=== PATIENT | male | born 1930 | race African-American/Black ===

== ENCOUNTER 2016-04-27 13:30 | Outpatient (RCR) | payer OTHER ==
[~2016-04-27 13:30] MED LIST: CRESTOR10 M1 ORAL; DIABETA5 MG ORAL; FUROSEMIDE40 MG ORAL; LISINOPRIL10 MG ORAL; SLOW-MAG64 MG PO; VITAMIN B12-FO1 EAC1 PO; VITAMIN D400 INTLU ORAL
== END 2016-05-24 | disposition home or self-care (01) ==
LOC: PTY 13:30
DX: M48.06 Spinal stenosis, lumbar region (principal); M79.606 Pain in leg, unspecified
CPT/HCPCS: 97110; G0283

== ENCOUNTER 2016-06-01 15:00 | Outpatient (RCR) | payer OTHER | END 2016-06-21 | disposition home or self-care (01) | LOC: PTY 15:00 | DX: M48.06 Spinal stenosis, lumbar region (principal); M79.606 Pain in leg, unspecified | CPT/HCPCS: 97110; G0283 ==

== ENCOUNTER 2016-11-18 13:50 | Outpatient (RCR) | payer OTHER | END 2016-11-21 | disposition home or self-care (01) | LOC: PTY 13:50 | DX: M48.06 Spinal stenosis, lumbar region (principal); M79.606 Pain in leg, unspecified | CPT/HCPCS: 97110; 97161; G0283 ==

== ENCOUNTER 2016-12-08 15:00 | Outpatient (RCR) | payer OTHER | END 2016-12-22 | disposition home or self-care (01) | LOC: PTY 15:00 | DX: M48.06 Spinal stenosis, lumbar region (principal); M79.606 Pain in leg, unspecified; M54.5 Low back pain; G89.29 Other chronic pain | CPT/HCPCS: 97110; G0283 ==

== ENCOUNTER 2017-01-11 14:30 | Outpatient (RCR) | payer OTHER | END 2017-01-21 | disposition home or self-care (01) | LOC: PTY 14:30 | DX: M60.9 Myositis, unspecified (principal) | CPT/HCPCS: 97110; G0283 ==

== ENCOUNTER 2017-02-15 14:12 | Outpatient (RCR) | payer OTHER | END 2017-02-21 | disposition home or self-care (01) | LOC: PTY 14:12 | DX: M60.9 Myositis, unspecified (principal) | CPT/HCPCS: 97110; G0283 ==

== ENCOUNTER 2017-02-27 15:15 | Outpatient (RCR) | payer OTHER | END 2017-03-23 | disposition home or self-care (01) | LOC: PTY 15:15 | DX: M60.9 Myositis, unspecified (principal) | CPT/HCPCS: 97110; G0283 ==

== ENCOUNTER 2017-06-01 15:15 | Outpatient (RCR) | payer OTHER | END 2017-06-21 | disposition home or self-care (01) | LOC: PTY 15:15 | DX: R26.9 Unspecified abnormalities of gait and mobility (principal) | CPT/HCPCS: 97110; 97161; G0283 ==

== ENCOUNTER 2017-06-28 10:50 | Outpatient (RCR) | payer OTHER | END 2017-07-22 | disposition home or self-care (01) | LOC: PTY 10:50 | DX: R26.9 Unspecified abnormalities of gait and mobility (principal) | CPT/HCPCS: 97110; G0283 ==

== ENCOUNTER 2017-07-26 15:00 | Outpatient (RCR) | payer OTHER | END 2017-08-21 | disposition home or self-care (01) | LOC: PTY 15:00 | DX: R26.9 Unspecified abnormalities of gait and mobility (principal) | CPT/HCPCS: 97032; 97110; G0283 ==

== ENCOUNTER 2017-08-22 15:00 | Outpatient (RCR) | payer OTHER | END 2017-09-21 | disposition home or self-care (01) | LOC: PTY 15:00 | DX: R26.9 Unspecified abnormalities of gait and mobility (principal) | CPT/HCPCS: 97032; 97110; G0283 ==

== ENCOUNTER 2017-09-25 13:45 | Outpatient (RCR) | payer OTHER | END 2017-10-21 | disposition home or self-care (01) | LOC: PTY 13:45 | DX: R26.9 Unspecified abnormalities of gait and mobility (principal) ==

== ENCOUNTER 2018-05-17 17:11 | Inpatient (IN) | payer OTHER ==
[~2018-05-17] VITALS: Ht 177.8 cm; Wt 107.5 kg
[2018-05-17 18:22] VITALS: BP 138/66
[2018-05-17 18:28] LABS: BASOPHILS % (AUTO) 1.4 % (0.0-2.0); EOSINOPHILS % (AUTO) 1.2 % (0.0-3.0); HEMATOCRIT 38.2 % (42.0-52.0); HEMOGLOBIN 12.7 G/DL (14.2-18.0); LYMPHOCYTES % (AUTO) 12.8 % (20.0-45.0); MEAN CORPUSCULAR VOLUME 95 FL (80-99); MONOCYTES % (AUTO) 5.2 % (1.0-10.0); NEUTROPHILS % (AUTO) 79.5 % (45.0-75.0); PLATELET COUNT 148 K/UL (150-450); RED BLOOD COUNT 4.03 M/UL (4.70-6.10); RED CELL DISTRIBUTION WIDTH 14.7 % (11.6-14.8); WHITE BLOOD COUNT 6.8 K/UL (4.8-10.8)
[2018-05-17 18:48] LABS: ANION GAP 7 mmol/L (5-15); BLOOD UREA NITROGEN 23 mg/dL (7-18); CALCIUM 8.7 MG/DL (8.5-10.1); CARBON DIOXIDE 28 MMOL/L (21-32); CHLORIDE 103 MMOL/L (98-107); CREATININE 0.8 MG/DL (0.55-1.30); POTASSIUM 4.2 MMOL/L (3.5-5.1); SODIUM 138 MMOL/L (136-145)
[2018-05-17 19:01] LABS: ALANINE AMINOTRANSFERASE 109 U/L (12-78); ALBUMIN 2.6 G/DL (3.4-5.0); ALBUMIN/GLOBULIN RATIO 0.7 (1.0-2.7); ALKALINE PHOSPHATASE 55 U/L (46-116); ASPARTATE AMINO TRANSFERASE 79 U/L (15-37); BILIRUBIN,TOTAL 0.7 MG/DL (0.2-1.0)
[2018-05-17 19:29] LABS: APPEARANCE,URINE CLOUDY; BILIRUBIN, URINE NEGATIVE (NEGATIVE); GLUCOSE, URINE (UA) NEGATIVE (NEGATIVE); KETONES,URINE 1+ (NEGATIVE); LEUKOCYTE ESTERASE ,URINE 3+ (NEGATIVE); NITRITE,URINE NEGATIVE (NEGATIVE); PH,URINE 5 (4.5-8.0); PROTEIN,URINE 2+ (NEGATIVE); UROBILINOGEN,URINE 4 MG/DL (0.0-1.0)
[2018-05-17 19:30] LABS: COLOR,URINE YELLOW
[2018-05-17 19:45] VITALS: BP 140/68
[2018-05-17] MEDS ORDERED: cefTRIAXone 1 GM in NS 55 ML IVPB ONE (19:45)
--- NOTE | 2018-05-17 20:01 | Emergency Room Report ---
History of Present Illness General Chief Complaint: Edema Source: Patient, EMS Present Illness HPI Patient is an 88-year-old male presented after increased difficulty with leg swelling and ambulate difficulty ambulating. Patient reportedly had a recent fall. He had been noted to have increased swelling to both legs. Patient had been lying in bed for several days and then been unable to care for himself. Patient had prior history of hypertension as well as type 2 diabetes. Patient denies having any prior cardiac history. He states that he had been having increased swelling and has chronic pain to his low back. Patient reports being normally ambulatory prior to the fall. Allergies: Coded Allergies: HYDRALAZINE (Unverified Allergy, Unknown, Rash, 05/14/15) METFORMIN (Unverified Allergy, Unknown, NAUSEA ONLY, 05/14/15) Patient History Past Medical History: see triage record Reviewed Nursing Documentation: PMH: Agreed; PSxH: Agreed Nursing Documentation-PMH Hx Cardiac Problems: Yes Hx Hypertension: Yes Hx Diabetes: Yes Hx Cancer: No Hx Gastrointestinal Problems: No Hx Neurological Problems: No Review of Systems All Other Systems: negative except mentioned in HPI Physical Exam Vital Signs Date Time Temp Pulse Resp B/P (MAP) Pulse Ox O2 Delivery O2 Flow Rate FiO2 05/17/18 17:07 100.9 103 20 129/73 97 Room Air Sp02 EP Interpretation: reviewed, normal General Appearance: normal inspection, well appearing, no apparent distress, alert, GCS 15 Head: atraumatic Eyes: bilateral eye other - bilateral eyelid discharge ENT: normal ENT inspection, normal voice Neck: normal inspection, supple, no bony tend, limited range of motion Respiratory: normal inspection, lungs clear, no respiratory distress, no retraction, rales Cardiovascular #1: regular rate, rhythm, edema Gastrointestinal: normal inspection, normal bowel sounds, non tender, soft, no guarding, no hernia Genitourinary: no CVA tenderness Musculoskeletal: normal range of motion, decreased range of motion Neurologic: normal inspection, alert, oriented x3, responsive, diversity specialist III-XII nml as tested, speech normal, motor weakness - bilateral lower extremities, left greater than right Psychiatric: normal inspection, judgement/insight normal, mood/affect normal Skin: normal color, other - Blistering to left leg. Medical Decision Making Diagnostic Impression: Primary Impression: CHF (congestive heart failure) Additional Impressions: Urinary tract infection Bilateral leg edema ER Course Patient presented for difficulty ambulating and bilateral leg swelling. Differential diagnosis include was not limited to renal failure, congestive heart failure, medication reaction, dependent edema among others. Because of complexity of patient's case laboratory testing and imaging studies were ordered. Patient was noted to have market edema to both lower extremities. There is some lower extremity blistering. Patient had no prior cardiac history. EKG interpreted by me showed normal sinus rhythm with a rate of [address] or T wave changes.Patient presented for bilateral leg swelling. patient reports having a fall and having been able to ambulate since. CT of the abdomen pelvis was ordered which showed some bibasilar infiltrates. Patient's exam is consistent with congestive heart failure. Patient was noted to have too numerous to count white cells in his urine. He was started on antibiotics for presumed urinary infection. Patient was given IV Lasix. Dr. Kaleb Carrillo was contacted for Dr. Roberto for inpatient management due to Capitated physician. Laboratory Tests Test 05/17/18 18:05 05/17/18 18:20 05/17/18 19:05 05/17/18 23:00 White Blood Count 6.8 K/UL (4.8-10.8) Red Blood Count 4.03 M/UL (4.70-6.10) L Hemoglobin 12.7 G/DL (14.2-18.0) L Hematocrit 38.2 % (42.0-52.0) L Mean Corpuscular Volume 95 FL (80-99) Mean Corpuscular Hemoglobin 31.6 PG (27.0-31.0) H Mean Corpuscular Hemoglobin Concent 33.3 G/DL (32.0-36.0) Red Cell Distribution Width 14.7 % (11.6-14.8) Platelet Count 148 K/UL (150-450) L Mean Platelet Volume 6.0 FL (6.5-10.1) L Neutrophils (%) (Auto) 79.5 % (45.0-75.0) H Lymphocytes (%) (Auto) 12.8 % (20.0-45.0) L Monocytes (%) (Auto) 5.2 % (1.0-10.0) Eosinophils (%) (Auto) 1.2 % (0.0-3.0) Basophils (%) (Auto) 1.4 % (0.0-2.0) Prothrombin Time 10.4 SEC (9.30-11.50) Prothrombin Time INR 1.0 (0.9-1.1) PTT 22 SEC (23-33) L Sodium Level 138 MMOL/L (136-145) Potassium Level 4.2 MMOL/L (3.5-5.1) Chloride Level 103 MMOL/L (98-107) Carbon Dioxide Level 28 MMOL/L (21-32) Anion Gap 7 mmol/L (5-15) Blood Urea Nitrogen 23 mg/dL (7-18) H Creatinine 0.8 MG/DL (0.55-1.30) Estimate Glomerular Filtration Rate mL/min (>60) Glucose Level 159 MG/DL (74-106) H Calcium Level 8.7 MG/DL (8.5-10.1) Total Bilirubin 0.7 MG/DL (0.2-1.0) Aspartate Amino Transferase (AST) 79 U/L (15-37) H Alanine Aminotransferase (ALT) 109 U/L (12-78) H Alkaline Phosphatase 55 U/L (46-116) Troponin I 0.007 ng/mL (0.000-0.056) 0.013 ng/mL (0.000-0.056) Pro-B-Type Natriuretic Peptide 37 pg/mL (0-125) Total Protein 6.2 G/DL (6.4-8.2) L Albumin 2.6 G/DL (3.4-5.0) L Globulin 3.6 g/dL Albumin/Globulin Ratio 0.7 (1.0-2.7) L Thyroid Stimulating Hormone (TSH) 1.547 uiU/mL (0.358-3.740) 1.249 uiU/mL (0.358-3.740) Total Creatine Kinase 803 U/L (26-308) H 739 U/L (26-308) H Urine Color Yellow Urine Appearance Cloudy Urine pH 5 (4.5-8.0) Urine Specific [place] 1.015 (1.005-1.035) Urine Protein 2+ (NEGATIVE) H Urine Glucose (UA) Negative (NEGATIVE) Urine Ketones 1+ (NEGATIVE) H Urine Blood 5+ (NEGATIVE) H Urine Nitrite Negative (NEGATIVE) Urine Bilirubin Negative (NEGATIVE) Urine Urobilinogen 4 MG/DL (0.0-1.0) H Urine Leukocyte Esterase 3+ (NEGATIVE) H Urine RBC 5-10 /HPF (0 - 0) H Urine WBC Tntc /HPF (0 - 0) H Urine Squamous Epithelial Cells None /LPF (NONE/OCC) Urine Bacteria Many /HPF (NONE) H D-Dimer 22.76 mg/L FEU (0.00-0.49) H Hemoglobin A1c 6.6 % (4.3-6.0) H Test 05/18/18 04:30 White Blood Count 5.1 K/UL (4.8-10.8) Red Blood Count 3.41 M/UL (4.70-6.10) L Hemoglobin 10.9 G/DL (14.2-18.0) L Hematocrit 32.0 % (42.0-52.0) L Mean Corpuscular Volume 94 FL (80-99) Mean Corpuscular Hemoglobin 31.9 PG (27.0-31.0) H Mean Corpuscular Hemoglobin Concent 34.0 G/DL (32.0-36.0) Red Cell Distribution Width 14.7 % (11.6-14.8) Platelet Count 143 K/UL (150-450) L Mean Platelet Volume 6.0 FL (6.5-10.1) L Neutrophils (%) (Auto) 70.5 % (45.0-75.0) Lymphocytes (%) (Auto) 15.7 % (20.0-45.0) L Monocytes (%) (Auto) 9.9 % (1.0-10.0) Eosinophils (%) (Auto) 3.1 % (0.0-3.0) H Basophils (%) (Auto) 0.9 % (0.0-2.0) PTT 28 SEC (23-33) Sodium Level 142 MMOL/L (136-145) Potassium Level 3.4 MMOL/L (3.5-5.1) L Chloride Level 105 MMOL/L (98-107) Carbon Dioxide Level 31 MMOL/L (21-32) Anion Gap 6 mmol/L (5-15) Blood Urea Nitrogen 20 mg/dL (7-18) H Creatinine 0.7 MG/DL (0.55-1.30) Estimate Glomerular Filtration Rate mL/min (>60) Glucose Level 117 MG/DL (74-106) H Calcium Level 8.1 MG/DL (8.5-10.1) L Total Bilirubin 0.5 MG/DL (0.2-1.0) Aspartate Amino Transferase (AST) 54 U/L (15-37) H Alanine Aminotransferase (ALT) 84 U/L (12-78) H Alkaline Phosphatase 44 U/L (46-116) L Pro-B-Type Natriuretic Peptide 43 pg/mL (0-125) Total Protein 5.2 G/DL (6.4-8.2) L Albumin 2.1 G/DL (3.4-5.0) L Globulin 3.1 g/dL Albumin/Globulin Ratio 0.7 (1.0-2.7) L Triglycerides Level 47 MG/DL (30-150) Cholesterol Level 138 MG/DL (< 200) LDL Cholesterol 78 mg/dL (<100) HDL Cholesterol 46 MG/DL (40-60) Cholesterol/HDL Ratio 3.0 (3.3-4.4) L EKG Diagnostic Results Rate: normal Rhythm: NSR ST Segments: no acute changes Last Vital Signs Date Time Temp Pulse Resp B/P (MAP) Pulse Ox O2 Delivery O2 Flow Rate FiO2 05/17/18 18:22 98.9 83 17 138/66 98 Room Air Status: unchanged Disposition: ADMITTED INPATIENT Condition: Serious Referrals: NON PHYSICIAN (PCP) Lamont Alejandro MD May 17, 2018 20:01
[2018-05-17 20:45] LABS: CREATINE KINASE 803 U/L (26-308)
[2018-05-17 21:19] VITALS: BP 138/84
[2018-05-17 21:40] VITALS: BP 129/70
[2018-05-17] MEDS ORDERED: GLIPIZIDE10 MG PO (21:40)
[2018-05-17] MEDS ORDERED: HYDROcodone/Acetamin 10/325 tab ORAL PRN (23:00)
[2018-05-17] MEDS ORDERED: Norco 5mg/325mg tab ORAL PRN (23:00)
[2018-05-17 23:48] LABS: CREATINE KINASE 739 U/L (26-308)
[2018-05-18] VITALS: BP 131/75
[2018-05-18] MEDS ORDERED: Isovue-370 150ml vial INJ PRN (00:45)
[2018-05-18 04:00] VITALS: BP 144/71
[2018-05-18] MEDS ORDERED: Heparin 5000 units/ml inj IV ONE (05:15)
[2018-05-18 05:19] LABS: BASOPHILS % (AUTO) 0.9 % (0.0-2.0); EOSINOPHILS % (AUTO) 3.1 % (0.0-3.0); HEMOGLOBIN 10.9 G/DL (14.2-18.0); LYMPHOCYTES % (AUTO) 15.7 % (20.0-45.0); MEAN CORPUSCULAR VOLUME 94 FL (80-99); MONOCYTES % (AUTO) 9.9 % (1.0-10.0); NEUTROPHILS % (AUTO) 70.5 % (45.0-75.0); PLATELET COUNT 143 K/UL (150-450); RED BLOOD COUNT 3.41 M/UL (4.70-6.10); RED CELL DISTRIBUTION WIDTH 14.7 % (11.6-14.8); WHITE BLOOD COUNT 5.1 K/UL (4.8-10.8)
[2018-05-18] MEDS: Heparin 25,000u/D5W 500ml 500 ML IV SCH ×2 (05:56→13:40)
[2018-05-18 05:57] LABS: ALANINE AMINOTRANSFERASE 84 U/L (12-78); ALBUMIN 2.1 G/DL (3.4-5.0); ALBUMIN/GLOBULIN RATIO 0.7 (1.0-2.7); ALKALINE PHOSPHATASE 44 U/L (46-116); ANION GAP 6 mmol/L (5-15); ASPARTATE AMINO TRANSFERASE 54 U/L (15-37); BILIRUBIN,TOTAL 0.5 MG/DL (0.2-1.0); BLOOD UREA NITROGEN 20 mg/dL (7-18); CALCIUM 8.1 MG/DL (8.5-10.1); CARBON DIOXIDE 31 MMOL/L (21-32); CHLORIDE 105 MMOL/L (98-107); CHOLESTEROL 138 MG/DL (< 200); CREATININE 0.7 MG/DL (0.55-1.30); HDL CHOLESTEROL 46 MG/DL (40-60); POTASSIUM 3.4 MMOL/L (3.5-5.1); SODIUM 142 MMOL/L (136-145); TRIGLYCERIDES 47 MG/DL (30-150)
[2018-05-18] MEDS: NovoLOG Insulin Flexpen SUBQ SCH ×4 (06:00→21:00)
[2018-05-18 08:00] VITALS: BP 146/77
[2018-05-18] MEDS ORDERED: Heparin 5000 units/ml inj SUBQ SCH (09:00)
--- NOTE | 2018-05-18 09:08 | Diagnostic Imaging Report ---
Indication: Abdominal pain, leg swelling, difficulty cannulating, recent fall Technique: Spiral acquisitions obtained through the abdomen and pelvis. No oral contrast utilized, per emergency room physician request No IV contrast utilized, per referring physician request.. Multiplanar reconstructions were generated. Total dose length product 977.42 mGycm. CTDIvol(s) 16.58 mGy. Dose reduction achieved using automated exposure control Comparison: None Findings: Normal appendix. No evidence of diverticulosis or diverticulitis. No small bowel distention. No free or loculated intraperitoneal gas or fluid is evident. There are bilateral inguinal hernias which contain only fat. The distal esophagus is unremarkable. The stomach demonstrates an unusual configuration, otherwise unremarkable. The duodenum is unremarkable. 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 No evidence of leakage or rupture Lack of IV contrast limits assessment of the solid organs. The liver demonstrates a granulomatous calcification. The gallbladder demonstrates questionable luminal material which may reflect sludge bile ducts, pancreas, spleen, adrenals are unremarkable. The bladder is markedly distended, demonstrates some posterior wall thickening inferiorly as well as mild generalized wall thickening. There is mild ectasia of the bilateral ureters and mild bilateral hydronephrosis. The right kidney demonstrates a 2.4 cm lower pole cyst. No definite left renal parenchymal abnormality. The prostate is only slightly prominent. There is mild edema of the bilateral flank and abdominal wall and buttock subcutaneous fat. Considerable consolidation and/or atelectasis is seen at both lung bases. There is mild bilateral lower lobe bronchiectasis. There are granulomatous calcifications within the left lower lobe parenchyma. The bones demonstrate degenerative spondylosis changes. Impression: Distended bladder. Bladder wall thickening and trabeculations suggest chronic bladder outlet obstruction Mild bilateral hydronephrosis and hydroureter, without definite downstream obstructive lesion, likely related to the above Bilateral pulmonary basilar infiltrates and/or atelectasis Bilateral lower lobe bronchiectasis. Evidence of old granulomatous disease within the left lower lobe and the liver 3.4 cm saccular and fusiform aneurysm of the infrarenal abdominal aorta. 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 No evidence of leakage or rupture Edema of the bilateral flank and abdominal wall subcutaneous fat Possible gallbladder sludge Other findings as noted, including small fat-containing bilateral inguinal hernias, right renal cyst, degenerative spondylosis. This agrees with the preliminary interpretation provided overnight by [facility]. The CT scanner at [facility] is accredited by the [employer] and the scans are performed using protocols designed to limit radiation exposure to as low as reasonably achievable to attain images of sufficient resolution adequate for diagnostic evaluation.
[2018-05-18] MEDS: GlipiZIDE 5mg tab ORAL SCH ×2 (09:29→17:12)
[2018-05-18] MEDS: cefTRIAXone 1 GM in D5W 55 ML IVPB SCH ×2 (09:30→21:23)
[2018-05-18] MEDS: Vitamin D 400 INTLU TAB ORAL SCH (09:31)
[2018-05-18] MEDS: Lisinopril 20mg tab ORAL SCH (09:32)
[2018-05-18] MEDS: Magnesium Chloride w/Calcium Tab ORAL SCH (10:04)
--- NOTE | 2018-05-18 10:42 | Diagnostic Imaging Report ---
Indication: Shortness of breath Technique: One view of the chest Comparison: none Findings: Inspiration is suboptimal. There are bilateral basilar atelectatic changes. The lungs and pleural spaces are otherwise clear. The aorta is tortuous and calcified. Impression: Hypoventilatory exam with bilateral basilar atelectasis
--- NOTE | 2018-05-18 11:12 | Diagnostic Imaging Report ---
Indication: Abdominal pain Technique: Coast-scale and duplex images of the upper abdomen were obtained Comparison: 05/17/2017 CT abdomen and pelvis Findings: Gallbladder is probably normal, although a small amount of sludge may be present. No stones are evident Gallbladder wall appears thickened, measuring up to 5 mm in thickness. However, gallbladder is nondistended. No pericholecystic fluid Sonographic Morales's sign is negative. Common bile duct measures 5 mm in diameter. No intrahepatic biliary ductal dilatation. Liver demonstrates normal echogenicity, no focal abnormality. Portal vein and hepatic veins are patent. Pancreas is unremarkable. Spleen is unremarkable. Left kidney measures 11 cm in length. Right kidney measures 12.3 cm length. Right kidney demonstrates equivocally slightly increased echogenicity. There is no hydronephrosis. No focal abnormality . There is an infrarenal abdominal aortic aneurysm, aortic lumen measuring 3.1 x 3.7 cm in diameter . Impression: Negative for gallstones. Equivocal gallbladder sludge Apparent mild gallbladder wall thickening, probably an artifact of under distention. Nuclear medicine hepatobiliary scanning may be useful if there is high clinical suspicion for acute cholecystitis 3.1 x 3.7 cm diameter infrarenal abdominal aortic aneurysm, also described on prior CT scan Equivocally slightly increased right renal echogenicity, if real could indicate early medical renal disease This agrees with the preliminary interpretation provided overnight by [facility].
--- NOTE | 2018-05-18 11:15 | Diagnostic Imaging Report ---
ndication: Shortness of breath, recent fall Technique: IV administration nonionic contrast. Spiral acquisitions obtained from the lung bases to the lung apices. Multiplanar and 3-D reconstructions were generated. Total dose length product 1168.36 mGycm. CTDIvol(s) 32.86 mGy. Dose reduction achieved using automated exposure control Comparison: Noncontrast chest CT 03/05/2008 Findings: Exam is limited due to respiratory motion artifact. The pulmonary arteries are well opacified. Filling defects are seen within a single right upper lobe segmental branch, straddling the proximal subsegmental branches. No other definite evidence of pulmonary embolus demonstrated. Normal caliber main pulmonary arteries. No evidence of right ventricular dilatation. Normal heart size There is common origin of the right brachiocephalic and left common carotid arteries, otherwise normal branching anatomy of the right neck vessels. There is extensive calcification of the proximal left subclavian artery, and significant stenosis is possible. The lungs demonstrate fairly extensive consolidation and atelectasis involving the bilateral lower lobes, and to a slight extent the right middle lobe. There is also bronchiectasis involving the bilateral lower lobes. Granulomatous calcifications are seen in the left lower lobe parenchyma. Pulmonary parenchymal findings are largely new since the prior study. However, the bronchiectasis was to some extent evident on that exam. The upper lobes are largely clear. There is suggestion of trace pleural fluid on the right Heart size is normal. No pericardial effusion. There is extensive coronary artery calcification. No mediastinal or hilar mass or adenopathy. The included thyroid is unremarkable. No axillary or chest wall mass or adenopathy. Please refer to separate abdomen pelvis CT report for discussion of the upper abdominal anatomy Impression: Positive for right upper lobe segmental pulmonary emboli No evidence of right heart strain Bilateral basilar atelectasis and/or consolidation. Chronic component also possible Questionable trace right pleural effusion Evidence of old granulomatous disease in the left lung This agrees with the preliminary interpretation provided overnight by [facility]. The CT scanner at [facility] is accredited by the [employer] and the scans are performed using protocols designed to limit radiation exposure to as low as reasonably achievable to attain images of sufficient resolution adequate for diagnostic evaluation.
[2018-05-18 12:00] VITALS: BP 138/83
--- NOTE | 2018-05-18 15:22 | History & Physical ---
History of Present Illness General Date patient seen: May 18, 2018 Time patient seen: 15:09 Reason for Hospitalization: Edema Present Illness HPI 88 M h/o MGUS, inclusion body myositis, DM BIB EMS with inc bLE edema x several days and generalized malaise, no cough, no SOB, no wheezing, no F/C, Tm 100.9, VSS x elevated BP, stable on RA, duplex neg, CT-A with R seg PE and BiB atx. + general malaise and weakness. 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 Allergies: Coded Allergies: HYDRALAZINE (Unverified Allergy, Unknown, Rash, 05/14/15) METFORMIN (Unverified Allergy, Unknown, NAUSEA ONLY, 05/14/15) Medication History Scheduled Cyanocobalamin/Folic Acid (Vitamin Q14-Xsupb Acid Tablet), 1 EACH PO DAILY, ( Reported) Furosemide* (Lasix*), 40 MG ORAL DAILY, (Reported) Glipizide (Glipizide), 10 MG PO BID, (Reported) Glyburide* (Diabeta*), 5 MG ORAL ACBREAKFAST, (Reported) Lisinopril* (Lisinopril*), 40 MG ORAL DAILY, (Reported) Magnesium Chloride (Slow-Mag), 64 MG PO DAILY, (Reported) Rosuvastatin Calcium (Crestor), 5 MG ORAL DAILY, (Reported) Vitamin D (Vitamin D3), 1,000 INTLU ORAL DAILY, (Reported) Patient History Healthcare decision maker Resuscitation status Full Code Advanced Directive on File No Review of Systems Review of Symptoms General ROS: no weight loss or fever + malaise Psychological ROS: no depression or mood changes, no memory loss Ophthalmic ROS: no visual changes or eye irritation ENT ROS: no nasal congestion, hearing loss, dizziness Allergy and Immunology ROS: no allergic symptoms or urticaria Hematological and Lymphatic ROS: no swollen glands, unusual bleeding or bruising Endocrine ROS: no polyuria, polydipsia, weight changes, temperature intolerance Respiratory ROS: no cough, shortness of breath, or wheezing Cardiovascular ROS: no chest pain or dyspnea on exertion Gastrointestinal ROS: denies abdominal pain, bright red blood in stool. Musculoskeletal ROS: no myalgias or arthralgias Neurological ROS: no TIA or stroke symptoms Dermatological ROS: no new or changing skin lesions, rashes or pruritis + edema Physical Exam Physical Exam General appearance: alert, cooperative, no distress, appears stated age Head: Normocephalic, without obvious abnormality, atraumatic Eyes: conjunctivae/corneas clear. PERRL, EOM's intact. Fundi benign Throat: Lips, mucosa, and tongue normal. Teeth and gums normal Neck: supple, symmetrical, trachea midline, no adenopathy, thyroid: not enlarged, symmetric, no tenderness/mass/nodules, no carotid bruit and no JVD Lungs: clear to auscultation bilaterally Heart: regular rate and rhythm, S1, S2 normal, no murmur, click, rub or gallop Abdomen: soft, non-tender. Bowel sounds normal. No masses, no organomegaly Extremities: extremities normal, atraumatic, no cyanosis, 2+ bLEE Pulses: 2+ and symmetric Skin: Skin color, texture, turgor normal. No rashes or lesions Neurologic: Grossly normal Last 24 Hour Vital Signs Date Time Temp Pulse Resp B/P (MAP) Pulse Ox O2 Delivery O2 Flow Rate FiO2 05/18/18 12:00 76 05/18/18 12:00 97.2 79 20 138/83 (101) 96 05/18/18 09:32 146/77 05/18/18 09:00 Room Air 05/18/18 08:00 97.2 84 20 146/77 (100) 92 05/18/18 07:40 93 05/18/18 04:00 98.7 79 18 144/71 (95) 96 05/18/18 04:00 43 05/18/18 00:54 98.9 88 17 138/84 98 Room Air 05/18/18 00:00 80 05/18/18 00:00 98.0 92 18 131/75 (93) 98 05/17/18 23:33 Room Air 05/17/18 21:40 97.9 90 18 129/70 (89) 97 05/17/18 21:19 98.9 88 17 138/84 98 Room Air 05/17/18 19:45 90.0 85 17 140/68 98 Room Air 05/17/18 18:22 98.9 83 17 138/66 98 Room Air 05/17/18 17:17 97 20 Room Air 05/17/18 17:07 100.9 103 20 129/73 97 Room Air Intake and Output 05/17/18 05/18/18 19:00 07:00 Intake Total 55 ml Output Total 600 ml Balance -545 ml IV Total 55 ml Output Urine Total 600 ml # Voids 3 Laboratory Tests Test 05/17/18 18:05 05/17/18 18:20 05/17/18 19:05 05/17/18 23:00 White Blood Count 6.8 K/UL (4.8-10.8) Red Blood Count 4.03 M/UL (4.70-6.10) L Hemoglobin 12.7 G/DL (14.2-18.0) L Hematocrit 38.2 % (42.0-52.0) L Mean Corpuscular Volume 95 FL (80-99) Mean Corpuscular Hemoglobin 31.6 PG (27.0-31.0) H Mean Corpuscular Hemoglobin Concent 33.3 G/DL (32.0-36.0) Red Cell Distribution Width 14.7 % (11.6-14.8) Platelet Count 148 K/UL (150-450) L Mean Platelet Volume 6.0 FL (6.5-10.1) L Neutrophils (%) (Auto) 79.5 % (45.0-75.0) H Lymphocytes (%) (Auto) 12.8 % (20.0-45.0) L Monocytes (%) (Auto) 5.2 % (1.0-10.0) Eosinophils (%) (Auto) 1.2 % (0.0-3.0) Basophils (%) (Auto) 1.4 % (0.0-2.0) Prothrombin Time 10.4 SEC (9.30-11.50) Prothromb Time International Ratio 1.0 (0.9-1.1) Activated Partial Thromboplast Time 22 SEC (23-33) L Sodium Level 138 MMOL/L (136-145) Potassium Level 4.2 MMOL/L (3.5-5.1) Chloride Level 103 MMOL/L (98-107) Carbon Dioxide Level 28 MMOL/L (21-32) Anion Gap 7 mmol/L (5-15) Blood Urea Nitrogen 23 mg/dL (7-18) H Creatinine 0.8 MG/DL (0.55-1.30) Estimat Glomerular Filtration Rate mL/min (>60) Glucose Level 159 MG/DL (74-106) H Calcium Level 8.7 MG/DL (8.5-10.1) Total Bilirubin 0.7 MG/DL (0.2-1.0) Aspartate Amino Transf (AST/SGOT) 79 U/L (15-37) H Alanine Aminotransferase (ALT/SGPT) 109 U/L (12-78) H Alkaline Phosphatase 55 U/L (46-116) Troponin I 0.007 ng/mL (0.000-0.056) 0.013 ng/mL (0.000-0.056) Pro-B-Type Natriuretic Peptide 37 pg/mL (0-125) Total Protein 6.2 G/DL (6.4-8.2) L Albumin 2.6 G/DL (3.4-5.0) L Globulin 3.6 g/dL Albumin/Globulin Ratio 0.7 (1.0-2.7) L Thyroid Stimulating Hormone (TSH) 1.547 uiU/mL (0.358-3.740) 1.249 uiU/mL (0.358-3.740) Total Creatine Kinase 803 U/L (26-308) H 739 U/L (26-308) H Urine Color Yellow Urine Appearance Cloudy Urine pH 5 (4.5-8.0) Urine Specific [place] 1.015 (1.005-1.035) Urine Protein 2+ (NEGATIVE) H Urine Glucose (UA) Negative (NEGATIVE) Urine Ketones 1+ (NEGATIVE) H Urine Blood 5+ (NEGATIVE) H Urine Nitrite Negative (NEGATIVE) Urine Bilirubin Negative (NEGATIVE) Urine Urobilinogen 4 MG/DL (0.0-1.0) H Urine Leukocyte Esterase 3+ (NEGATIVE) H Urine RBC 5-10 /HPF (0 - 0) H Urine WBC Tntc /HPF (0 - 0) H Urine Squamous Epithelial Cells None /LPF (NONE/OCC) Urine Bacteria Many /HPF (NONE) H D-Dimer 22.76 mg/L FEU (0.00-0.49) H Hemoglobin A1c 6.6 % (4.3-6.0) H Test 05/18/18 04:30 05/18/18 12:14 White Blood Count 5.1 K/UL (4.8-10.8) Red Blood Count 3.41 M/UL (4.70-6.10) L Hemoglobin 10.9 G/DL (14.2-18.0) L Hematocrit 32.0 % (42.0-52.0) L Mean Corpuscular Volume 94 FL (80-99) Mean Corpuscular Hemoglobin 31.9 PG (27.0-31.0) H Mean Corpuscular Hemoglobin Concent 34.0 G/DL (32.0-36.0) Red Cell Distribution Width 14.7 % (11.6-14.8) Platelet Count 143 K/UL (150-450) L Mean Platelet Volume 6.0 FL (6.5-10.1) L Neutrophils (%) (Auto) 70.5 % (45.0-75.0) Lymphocytes (%) (Auto) 15.7 % (20.0-45.0) L Monocytes (%) (Auto) 9.9 % (1.0-10.0) Eosinophils (%) (Auto) 3.1 % (0.0-3.0) H Basophils (%) (Auto) 0.9 % (0.0-2.0) Activated Partial Thromboplast Time 28 SEC (23-33) 80 SEC (23-33) H Sodium Level 142 MMOL/L (136-145) Potassium Level 3.4 MMOL/L (3.5-5.1) L Chloride Level 105 MMOL/L (98-107) Carbon Dioxide Level 31 MMOL/L (21-32) Anion Gap 6 mmol/L (5-15) Blood Urea Nitrogen 20 mg/dL (7-18) H Creatinine 0.7 MG/DL (0.55-1.30) Estimat Glomerular Filtration Rate mL/min (>60) Glucose Level 117 MG/DL (74-106) H Calcium Level 8.1 MG/DL (8.5-10.1) L Total Bilirubin 0.5 MG/DL (0.2-1.0) Aspartate Amino Transf (AST/SGOT) 54 U/L (15-37) H Alanine Aminotransferase (ALT/SGPT) 84 U/L (12-78) H Alkaline Phosphatase 44 U/L (46-116) L Pro-B-Type Natriuretic Peptide 43 pg/mL (0-125) Total Protein 5.2 G/DL (6.4-8.2) L Albumin 2.1 G/DL (3.4-5.0) L Globulin 3.1 g/dL Albumin/Globulin Ratio 0.7 (1.0-2.7) L Triglycerides Level 47 MG/DL (30-150) Cholesterol Level 138 MG/DL (< 200) LDL Cholesterol 78 mg/dL (<100) HDL Cholesterol 46 MG/DL (40-60) Cholesterol/HDL Ratio 3.0 (3.3-4.4) L Microbiology Date/Time Source Procedure Growth Status 05/17/18 19:05 Urine,Clean Catch Urine Culture - Preliminary Resulted Height (Feet): 5 Height (Inches): 10.00 Weight (Pounds): 175 Medications Current Medications Medications (Trade) Dose Ordered Sig/Myrtle Route PRN Reason Start Time Stop Time Status Last Admin Dose Admin Acetaminophen (Tylenol) 650 mg Q4H PRN ORAL Mild Pain/Temp > 100.5 05/17/18 23:00 06/16/18 22:59 Acetaminophen/ Hydrocodone Bitart ([place] 10/325) 1 tab Q4H PRN ORAL Severe Pain (Pain Scale 7-10) 05/17/18 23:00 05/24/18 22:59 Acetaminophen/ Hydrocodone Bitart ([place] 5/325) 1 tab Q4H PRN ORAL Moderate Pain (Pain Scale 4-6) 05/17/18 23:00 05/24/18 22:59 Atorvastatin Calcium (Lipitor) 20 mg BEDTIME ORAL 05/18/18 21:00 06/17/18 20:59 Ceftriaxone Sodium 1 gm/ Dextrose 55 ml @ 110 mls/hr Q12HR IVPB 05/18/18 09:00 05/25/18 08:59 05/18/18 09:30 Dextrose (Dextrose 50%) 25 ml Q30M PRN IV Hypoglycemia 05/17/18 23:00 06/16/18 22:59 Dextrose (Dextrose 50%) 50 ml Q30M PRN IV Hypoglycemia 05/17/18 23:00 06/16/18 22:59 Diphenhydramine HCl (Benadryl) 25 mg Q6H PRN ORAL Itching 05/17/18 23:00 06/16/18 22:59 Glipizide (Glucotrol) 10 mg BID ORAL 05/18/18 09:00 06/17/18 08:59 05/18/18 09:29 Heparin Sodium/ Dextrose 500 ml @ 28.576 mls/ hr ADJUST PER PROTOCOL IV 05/18/18 04:00 06/17/18 03:59 05/18/18 13:40 Insulin Aspart (NovoLOG) BEFORE MEALS AND HS SUBQ 05/18/18 06:30 06/17/18 06:29 Iopamidol (Isovue-370 150ml) 150 ml NOW PRN INJ Radiology Procedure 05/18/18 00:45 05/20/18 00:35 Lisinopril (Prinivil) 40 mg DAILY ORAL 05/18/18 09:00 06/17/18 08:59 05/18/18 09:32 Magnesium Chloride (Slow-Mag) 1 tab DAILY ORAL 05/18/18 09:00 06/17/18 08:59 05/18/18 10:04 Ondansetron HCl (Zofran) 4 mg Q6H PRN IVP Nausea & Vomiting 05/17/18 23:00 06/16/18 22:59 Sodium Chloride 1,000 ml @ 75 mls/hr [id number] IV 05/17/18 23:00 06/16/18 22:59 05/18/18 12:11 Vitamin D (Vitamin D) 1,000 intlu DAILY ORAL 05/18/18 09:00 06/17/18 08:59 05/18/18 09:31 Assessment/Plan Problem List: (1) Elevated CK ICD Codes: R74.8 - Abnormal levels of other serum enzymes SNOMED: 608897199 (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 [IBM] SNOMED: 10178328 (3) MGUS (monoclonal gammopathy of unknown significance) ICD Codes: D47.2 - Monoclonal gammopathy SNOMED: 857704227 (4) Pulmonary embolism ICD Codes: I26.99 - Other pulmonary embolism without acute cor pulmonale SNOMED: 83480518 (5) Urinary tract infection ICD Codes: N39.0 - Urinary tract infection, site not specified SNOMED: 75996357 (6) CHF (congestive heart failure) ICD Codes: I50.9 - Heart failure, unspecified SNOMED: 94655040 (7) Bilateral leg edema ICD Codes: R60.0 - Localized edema SNOMED: 922368595, 62972133, 47219250 (8) Esophageal dysmotility ICD Codes: K22.4 - Dyskinesia of esophagus SNOMED: 126487915 Assessment/Plan Heparin gtt ---> will need at least 3-6 months of A/C F/U TTE Cardiology evaluation Monitor volumes and renal function, mIVF Renal evaluation NPO, [employer]IN[employer] IRONWORKER therapy GI evaluation CTX, F/U Cx's Glipizide, Glyburide + SSI PT/OT DVT Px: [facility] Hospital declaration INPATIENT level of care is warranted for this patient because patient is a 89 year old with who presents with suspicion of . I have a high level of concern because . Patient is at high risk for . Plan of care/treatment include . Patient care is expected to be greater than 2 midnights. OBSERVATION level of care is warranted for this patient. Patient is a 89 year old with who presents with . Patient will be admitted for 1 midnight, but if additional night(s) is/are necessary, patient will be converted to inpatient status for the entire hospitalization Disposition: Once the patient is stable to leave the hospital, I anticipate the patient will likely be discharged to the following environment: Estimated discharge date: I spent 70 minutes on this patient's case, and minutes was dedicated to counseling and/or care coordination. MIPS ([employer]-based Incentive Payment System) Applicable CPT: 78255, 94117 CHECK ALL THAT ARE MET: Measure #5 (CHF): All ages. Prescribe LEMUEL/ARB upon discharge for patients with left ventricular systolic dysfunction. If not, the reason is clearly documented in the medical chart. Measure #8 (CHF): All ages. Prescribe a beta maddi upon discharge for patients with left ventricular systolic dysfunction. If not, the reason is clearly documented in the medical chart. Measure #47 Advance care plan or surrogate decision maker documented in the medical record. Measure #130 The provider has documented, updated, or reviewed the patients current medication list and has documented it in the patients note. Measure #374 (All): Send report to referring provider. Measure #407(Sepsis due to MSSA bacteremia): Age 18+ Patient treated with a beta-lactam antibiotic (Nafcillin, Oxacillin or Cefazolin) as definitive therapy. MEDICAL COMPLEXITY High complexity medical decision making (need 2/3 categories) Problem - need 4 points Acute/new problem with new plan for workup (4 points, 1 max) Acute/new problem without additional workup (3 points, 1 max) Unstable chronic problem actively being managed (2 point each, 2 max) Stable chronic problem actively being managed (1 point each, 2 max) Self-limited/transient process (constipation, muscle ache, etc) (1 point each , 2 max) Data - need 4 points Reviewed labs/imaging studies (1 points, 2 max) Independent review of imaging (EKG, xrays, etc) (2 points, 2 max) Discussed case with consult/other MD/RN (2 points, 2 max) High Risk - qualify if have one of the following: Severe exacerbation of acute problem, acute mental status change, IV narcotics , monitoring drug levels (vancomycin, INR, tacrolimus etc) Juan C Carrillo MD May 18, 2018 15:22
[2018-05-18 16:00] VITALS: BP 123/59
[2018-05-18] MEDS ORDERED: NS 275ml ONE (16:25)
[2018-05-18] MEDS: D5 1/2NS w/KCl 20mEq 1,000 ML IV SCH (17:12)
--- NOTE | 2018-05-18 17:49 | Cardiology Progress Note ---
Assessment/Plan Assessment/Plan The patient is seen and examined, full consult note is dictated. Objective Last 24 Hour Vital Signs Date Time Temp Pulse Resp B/P (MAP) Pulse Ox O2 Delivery O2 Flow Rate FiO2 05/18/18 16:00 96.8 84 20 123/59 (80) 93 05/18/18 16:00 71 05/18/18 12:00 76 05/18/18 12:00 97.2 79 20 138/83 (101) 96 05/18/18 09:32 146/77 05/18/18 09:00 Room Air 05/18/18 08:00 97.2 84 20 146/77 (100) 92 05/18/18 07:40 93 05/18/18 04:00 98.7 79 18 144/71 (95) 96 05/18/18 04:00 43 05/18/18 00:54 98.9 88 17 138/84 98 Room Air 05/18/18 00:00 80 05/18/18 00:00 98.0 92 18 131/75 (93) 98 05/17/18 23:33 Room Air 05/17/18 21:40 97.9 90 18 129/70 (89) 97 05/17/18 21:19 98.9 88 17 138/84 98 Room Air 05/17/18 19:45 90.0 85 17 140/68 98 Room Air 05/17/18 18:22 98.9 83 17 138/66 98 Room Air Intake and Output 05/17/18 05/18/18 19:00 07:00 Intake Total 55 ml Output Total 600 ml Balance -545 ml IV Total 55 ml Output Urine Total 600 ml # Voids 3 Laboratory Tests Test 05/17/18 18:05 05/17/18 18:20 05/17/18 19:05 05/17/18 23:00 White Blood Count 6.8 K/UL (4.8-10.8) Red Blood Count 4.03 M/UL (4.70-6.10) L Hemoglobin 12.7 G/DL (14.2-18.0) L Hematocrit 38.2 % (42.0-52.0) L Mean Corpuscular Volume 95 FL (80-99) Mean Corpuscular Hemoglobin 31.6 PG (27.0-31.0) H Mean Corpuscular Hemoglobin Concent 33.3 G/DL (32.0-36.0) Red Cell Distribution Width 14.7 % (11.6-14.8) Platelet Count 148 K/UL (150-450) L Mean Platelet Volume 6.0 FL (6.5-10.1) L Neutrophils (%) (Auto) 79.5 % (45.0-75.0) H Lymphocytes (%) (Auto) 12.8 % (20.0-45.0) L Monocytes (%) (Auto) 5.2 % (1.0-10.0) Eosinophils (%) (Auto) 1.2 % (0.0-3.0) Basophils (%) (Auto) 1.4 % (0.0-2.0) Prothrombin Time 10.4 SEC (9.30-11.50) Prothromb Time International Ratio 1.0 (0.9-1.1) Activated Partial Thromboplast Time 22 SEC (23-33) L Sodium Level 138 MMOL/L (136-145) Potassium Level 4.2 MMOL/L (3.5-5.1) Chloride Level 103 MMOL/L (98-107) Carbon Dioxide Level 28 MMOL/L (21-32) Anion Gap 7 mmol/L (5-15) Blood Urea Nitrogen 23 mg/dL (7-18) H Creatinine 0.8 MG/DL (0.55-1.30) Estimat Glomerular Filtration Rate mL/min (>60) Glucose Level 159 MG/DL (74-106) H Calcium Level 8.7 MG/DL (8.5-10.1) Total Bilirubin 0.7 MG/DL (0.2-1.0) Aspartate Amino Transf (AST/SGOT) 79 U/L (15-37) H Alanine Aminotransferase (ALT/SGPT) 109 U/L (12-78) H Alkaline Phosphatase 55 U/L (46-116) Troponin I 0.007 ng/mL (0.000-0.056) 0.013 ng/mL (0.000-0.056) Pro-B-Type Natriuretic Peptide 37 pg/mL (0-125) Total Protein 6.2 G/DL (6.4-8.2) L Albumin 2.6 G/DL (3.4-5.0) L Globulin 3.6 g/dL Albumin/Globulin Ratio 0.7 (1.0-2.7) L Thyroid Stimulating Hormone (TSH) 1.547 uiU/mL (0.358-3.740) 1.249 uiU/mL (0.358-3.740) Total Creatine Kinase 803 U/L (26-308) H 739 U/L (26-308) H Urine Color Yellow Urine Appearance Cloudy Urine pH 5 (4.5-8.0) Urine Specific [place] 1.015 (1.005-1.035) Urine Protein 2+ (NEGATIVE) H Urine Glucose (UA) Negative (NEGATIVE) Urine Ketones 1+ (NEGATIVE) H Urine Blood 5+ (NEGATIVE) H Urine Nitrite Negative (NEGATIVE) Urine Bilirubin Negative (NEGATIVE) Urine Urobilinogen 4 MG/DL (0.0-1.0) H Urine Leukocyte Esterase 3+ (NEGATIVE) H Urine RBC 5-10 /HPF (0 - 0) H Urine WBC Tntc /HPF (0 - 0) H Urine Squamous Epithelial Cells None /LPF (NONE/OCC) Urine Bacteria Many /HPF (NONE) H D-Dimer 22.76 mg/L FEU (0.00-0.49) H Hemoglobin A1c 6.6 % (4.3-6.0) H Test 05/18/18 04:30 05/18/18 12:14 White Blood Count 5.1 K/UL (4.8-10.8) Red Blood Count 3.41 M/UL (4.70-6.10) L Hemoglobin 10.9 G/DL (14.2-18.0) L Hematocrit 32.0 % (42.0-52.0) L Mean Corpuscular Volume 94 FL (80-99) Mean Corpuscular Hemoglobin 31.9 PG (27.0-31.0) H Mean Corpuscular Hemoglobin Concent 34.0 G/DL (32.0-36.0) Red Cell Distribution Width 14.7 % (11.6-14.8) Platelet Count 143 K/UL (150-450) L Mean Platelet Volume 6.0 FL (6.5-10.1) L Neutrophils (%) (Auto) 70.5 % (45.0-75.0) Lymphocytes (%) (Auto) 15.7 % (20.0-45.0) L Monocytes (%) (Auto) 9.9 % (1.0-10.0) Eosinophils (%) (Auto) 3.1 % (0.0-3.0) H Basophils (%) (Auto) 0.9 % (0.0-2.0) Activated Partial Thromboplast Time 28 SEC (23-33) 80 SEC (23-33) H Sodium Level 142 MMOL/L (136-145) Potassium Level 3.4 MMOL/L (3.5-5.1) L Chloride Level 105 MMOL/L (98-107) Carbon Dioxide Level 31 MMOL/L (21-32) Anion Gap 6 mmol/L (5-15) Blood Urea Nitrogen 20 mg/dL (7-18) H Creatinine 0.7 MG/DL (0.55-1.30) Estimat Glomerular Filtration Rate mL/min (>60) Glucose Level 117 MG/DL (74-106) H Calcium Level 8.1 MG/DL (8.5-10.1) L Total Bilirubin 0.5 MG/DL (0.2-1.0) Aspartate Amino Transf (AST/SGOT) 54 U/L (15-37) H Alanine Aminotransferase (ALT/SGPT) 84 U/L (12-78) H Alkaline Phosphatase 44 U/L (46-116) L Pro-B-Type Natriuretic Peptide 43 pg/mL (0-125) Total Protein 5.2 G/DL (6.4-8.2) L Albumin 2.1 G/DL (3.4-5.0) L Globulin 3.1 g/dL Albumin/Globulin Ratio 0.7 (1.0-2.7) L Triglycerides Level 47 MG/DL (30-150) Cholesterol Level 138 MG/DL (< 200) LDL Cholesterol 78 mg/dL (<100) HDL Cholesterol 46 MG/DL (40-60) Cholesterol/HDL Ratio 3.0 (3.3-4.4) L Microbiology Date/Time Source Procedure Growth Status 05/17/18 19:05 Urine,Clean Catch Urine Culture - Preliminary Resulted Anthony Vazquez MD May 18, 2018 17:49
[2018-05-18 19:46] LABS: APPEARANCE,URINE VERY CLOUDY; BILIRUBIN, URINE NEGATIVE (NEGATIVE); GLUCOSE, URINE (UA) NEGATIVE (NEGATIVE); KETONES,URINE NEGATIVE (NEGATIVE); LEUKOCYTE ESTERASE ,URINE 2+ (NEGATIVE); NITRITE,URINE NEGATIVE (NEGATIVE); PH,URINE 5 (4.5-8.0); PROTEIN,URINE 3+ (NEGATIVE); UROBILINOGEN,URINE 1 MG/DL (0.0-1.0)
[2018-05-18 19:47] LABS: COLOR,URINE YELLOW
[2018-05-18 20:00] VITALS: BP 119/65
--- NOTE | 2018-05-18 20:45 | Consultation ---
DATE OF CONSULTATION: 05/18/2018 CARDIOLOGY CONSULTATION CONSULTING PHYSICIAN: Anthony Vazquez M.D. REFERRING PHYSICIANS: 1. Alden Roberto M.D. 2. Juan C Carrillo M.D. REASON FOR CONSULTATION: Evaluation for possibility of congestive heart failure. HISTORY OF PRESENT ILLNESS: The patient is a very unfortunate 88-year-old gentleman, who presents to the hospital with progressive worsening of lower extremity edema leading to difficulty with ambulation. The patient apparently had also a recent fall due to heavy legs and states that he has not been able to take care of himself. His coronary artery disease risk factors includes hypertension, type 2 diabetes mellitus, and age. At the time of arrival to the hospital, his initial blood pressure was 129/73 mmHg and heart rate of 103. A 12-lead electrocardiogram was significant for sinus rhythm at a rate of [address] and T-wave abnormalities and QT interval of 442 milliseconds. The patient was admitted to telemetry unit for further evaluation and management. Cardiology consultation was made at the request of Dr. Carrillo, apparently covering for Dr. Roberto. PAST MEDICAL HISTORY: 1. Diabetes mellitus. 2. Hypertension. 3. Questionable cardiac problems. PAST SURGICAL HISTORY: None. LIST OF MEDICATIONS: Vitamin B12 and folic acid tablets 1 tablet p.o. daily, Lasix 40 mg p.o. daily, glipizide 10 mg p.o. twice daily, DiaBeta 5 mg p.o. before every meal, lisinopril 40 mg p.o. daily, magnesium chloride 64 mg p.o. daily, Crestor 5 mg p.o. daily, and vitamin D3 units p.o. daily. ALLERGIES: Hydralazine and metformin. FAMILY HISTORY: No premature coronary artery disease or arrhythmogenic in the first-degree relatives. SOCIAL HISTORY: Denies any tobacco, alcohol, or illicit drug use. REVIEW OF SYSTEMS: A 12-system review done essentially negative except what was mentioned in the history of present illness.GASTROINTESTINAL: Progressive difficulty with swallowing. CARDIOVASCULAR: Progressive worsening of lower extremity edema. PHYSICAL EXAMINATION: VITAL SIGNS: Blood pressure at the time of arrival to the hospital was 129/73, pulse of 103, respirations of 20, O2 saturation of 97% on room air, and temperature 100.9 degrees Fahrenheit. GENERAL: The patient is a very pleasant 88-year-old gentleman, in no apparent respiratory distress. Alert and oriented x4. HEENT: Atraumatic and normocephalic. Anicteric. Pupils are equal, round, and reactive to light and accommodation. Extraocular muscles intact. NECK: JVP is flat close to 0 mmHg. No carotid bruit. Carotid upstroke is 2+ bilaterally. CARDIOVASCULAR: Normal S1, S2. Regular rate and rhythm. No murmurs, gallops, or rubs. PMI is at fourth intercostal space in the midclavicular line. LUNGS: Clear to auscultation bilaterally. ABDOMEN: Soft, nontender, and nondistended. No hepatosplenomegaly. Positive bowel sounds. EXTREMITIES: There is 3 to 4+ edema, squaring of the toes, and excoriations throughout both legs. LABORATORY FINDINGS: WBC 6.8, hemoglobin 12.7, hematocrit of 38.2, and platelet count is 148,000. Sodium was 138, potassium 4.2, chloride 103, bicarbonate 28, BUN of 23, creatinine 0.8, and glucose 159. Calcium is 8.7. AST 79 and ALT is 109. ProBNP was 37. Albumin is 2.6. TSH is 1.54. INR is 1.0. IMAGING STUDY: Chest x-ray showed hypoventilatory exam with bilateral basilar atelectasis. No congestive heart failure. A CT angiography of the chest, positive for right upper lobe segmental pulmonary emboli. No evidence of right heart strain. ASSESSMENT AND PLAN: The patient is a very unfortunate 88-year-old gentleman seen in Cardiology consultation. 1. Bilateral lower extremity edema. Review of 2D echocardiography does not show any evidence of LV systolic and diastolic function. The patient's lower extremity edema is not explained by his heart structure. Possibilities hypoalbuminemia as the serum alcohol level is low with the presence of low oncotic pressure. This patient may have lymphedema in addition as there is evidence of squaring of the toes. Apparently 40 mg of Lasix daily has not been able to resolve the issue. I would increase a protein-calorie diet as well as consider using compression stockings on both lower extremity, pressure about 25 to 30 mmHg. Prior to this, the patient will require to have the lower extremity venous duplex to rule out DVT as there is also presence of emboli within the right upper lobe. 2. Pulmonary embolism. The patient will require to be started on factor X inhibitors. I will consider Eliquis 10 mg p.o. twice daily for 7 days and rivaroxaban 50 mg p.o. twice daily for 21 days and then 15 and then 20 mg p.o. daily thereafter. We will discuss with Dr. Carrillo. 3. History of hypertension. I will continue lisinopril at this time. The blood pressure appears to be well controlled. 4. History of diabetes mellitus. I will add atorvastatin to the regimen. I would like to thank, Dr. Carrillo, for allowing me to participate in the care of this patient. Anthony Vazquez M.D. DR: FUENTES JOB#: [id number] CC:
[2018-05-18] MEDS: Atorvastatin 20mg tab ORAL SCH (21:24)
[2018-05-19] VITALS: BP 140/79
[2018-05-19] MEDS: Heparin 25,000u/D5W 500ml 500 ML IV SCH ×2 (00:57→19:15)
[2018-05-19 04:00] VITALS: BP 149/75
[2018-05-19 05:50] LABS: BASOPHILS % (AUTO) 0.9 % (0.0-2.0); EOSINOPHILS % (AUTO) 4.8 % (0.0-3.0); HEMATOCRIT 33.2 % (42.0-52.0); HEMOGLOBIN 10.9 G/DL (14.2-18.0); LYMPHOCYTES % (AUTO) 25.2 % (20.0-45.0); MEAN CORPUSCULAR VOLUME 94 FL (80-99); NEUTROPHILS % (AUTO) 57.1 % (45.0-75.0); PLATELET COUNT 149 K/UL (150-450); RED BLOOD COUNT 3.54 M/UL (4.70-6.10); RED CELL DISTRIBUTION WIDTH 14.7 % (11.6-14.8); WHITE BLOOD COUNT 4.4 K/UL (4.8-10.8)
[2018-05-19] MEDS: D5 1/2NS w/KCl 20mEq 1,000 ML IV SCH (05:55)
[2018-05-19 06:14] LABS: ALANINE AMINOTRANSFERASE 68 U/L (12-78); ALBUMIN 2.1 G/DL (3.4-5.0); ALBUMIN/GLOBULIN RATIO 0.7 (1.0-2.7); ALKALINE PHOSPHATASE 41 U/L (46-116); ANION GAP 6 mmol/L (5-15); ASPARTATE AMINO TRANSFERASE 46 U/L (15-37); BILIRUBIN,TOTAL 0.4 MG/DL (0.2-1.0); BLOOD UREA NITROGEN 16 mg/dL (7-18); CALCIUM 8.2 MG/DL (8.5-10.1); CARBON DIOXIDE 29 MMOL/L (21-32); CHLORIDE 105 MMOL/L (98-107); CREATININE 0.5 MG/DL (0.55-1.30); POTASSIUM 3.2 MMOL/L (3.5-5.1); SODIUM 140 MMOL/L (136-145)
[2018-05-19] MEDS: NovoLOG Insulin Flexpen SUBQ SCH ×4 (06:30→21:00)
[2018-05-19 06:33] LABS: CREATINE KINASE 422 U/L (26-308)
[2018-05-19 08:00] VITALS: BP 118/81
[2018-05-19] MEDS: GlipiZIDE 5mg tab ORAL SCH ×2 (09:00→18:00)
[2018-05-19] MEDS: Vitamin D 400 INTLU TAB ORAL SCH (09:00)
[2018-05-19] MEDS: Lisinopril 20mg tab ORAL SCH (09:00)
[2018-05-19] MEDS: Magnesium Chloride w/Calcium Tab ORAL SCH (09:00)
--- NOTE | 2018-05-19 09:12 | General Progress Note ---
Assessment/Plan Problem List: (1) Anemia ICD Codes: D64.9 - Anemia, unspecified SNOMED: 101494146 (2) Esophageal dysmotility ICD Codes: K22.4 - Dyskinesia of esophagus SNOMED: 932513949 (3) Pulmonary embolism ICD Codes: I26.99 - Other pulmonary embolism without acute cor pulmonale SNOMED: 09254506 (4) CHF (congestive heart failure) ICD Codes: I50.9 - Heart failure, unspecified SNOMED: 91046815 Assessment/Plan NGT NGTF may need peg when more stable anemia work up fu cardiology recs Subjective ROS Limited/Unobtainable: Yes Allergies: Coded Allergies: HYDRALAZINE (Unverified Allergy, Unknown, Rash, 05/14/15) METFORMIN (Unverified Allergy, Unknown, NAUSEA ONLY, 05/14/15) Subjective dysphagia Objective Last 24 Hour Vital Signs Date Time Temp Pulse Resp B/P (MAP) Pulse Ox O2 Delivery O2 Flow Rate FiO2 05/19/18 08:00 72 05/19/18 08:00 97.9 75 20 118/81 (93) 96 05/19/18 04:00 98.8 72 18 149/75 (99) 97 05/19/18 04:00 77 05/19/18 00:00 65 05/19/18 00:00 98.0 76 19 140/79 (99) 96 05/18/18 21:00 Room Air 05/18/18 20:00 65 05/18/18 20:00 98.3 70 19 119/65 (83) 94 05/18/18 16:00 96.8 84 20 123/59 (80) 93 05/18/18 16:00 71 05/18/18 12:00 76 05/18/18 12:00 97.2 79 20 138/83 (101) 96 05/18/18 09:32 146/77 Intake and Output 05/18/18 05/19/18 18:59 06:59 Intake Total 578.608 ml Output Total 400 ml 450 ml Balance 178.608 ml -450 ml Intake Oral 200 ml IV Total 378.608 ml Output Urine Total 400 ml 450 ml Laboratory Tests 05/18/18 12:14: Activated Partial Thromboplast Time 80H 05/18/18 18:45: Urine Color Yellow, Urine Appearance Very cloudy, Urine pH 5, Urine Specific [place] 1.015, Urine Protein 3+H, Urine Glucose (UA) Negative, Urine Ketones Negative, Urine Blood 5+H, Urine Nitrite Negative, Urine Bilirubin Negative, Urine Urobilinogen 1H, Urine Leukocyte Esterase 2+H, Urine RBC TntcH, Urine WBC TntcH, Urine Squamous Epithelial Cells None, Urine Bacteria ManyH, Urine Random Creatinine [Pending], Urine Random Microalbumin [Pending], Urine Microalbumin/ Creatinine Ratio [Pending] 05/19/18 04:14: Activated Partial Thromboplast Time 79H, White Blood Count 4.4L, Red Blood Count 3.54L, Hemoglobin 10.9L, Hematocrit 33.2L, Mean Corpuscular Volume 94, Mean Corpuscular Hemoglobin 30.9, Mean Corpuscular Hemoglobin Concent 33.0, Red Cell Distribution Width 14.7, Platelet Count 149L, Mean Platelet Volume 6.0L, Neutrophils (%) (Auto) 57.1, Lymphocytes (%) (Auto) 25.2, Monocytes (%) (Auto) 12.0H, Eosinophils (%) (Auto) 4.8H, Basophils (%) (Auto) 0.9, Sodium Level 140, Potassium Level 3.2L, Chloride Level 105, Carbon Dioxide Level 29, Anion Gap 6, Blood Urea Nitrogen 16, Creatinine 0.5L, Estimat Glomerular Filtration Rate , Glucose Level 75, Calcium Level 8.2L, Total Bilirubin 0.4, Aspartate Amino Transf (AST/SGOT) 46H, Alanine Aminotransferase (ALT/SGPT) 68, Alkaline Phosphatase 41L, Total Creatine Kinase 422H, Total Protein 5.3L, Albumin 2.1L, Globulin 3.2, Albumin/Globulin Ratio 0.7L Height (Feet): 5 Height (Inches): 10.00 Weight (Pounds): 175 General Appearance: alert EENT: normal ENT inspection Neck: supple Cardiovascular: normal rate Respiratory/Chest: decreased breath sounds Abdomen: normal bowel sounds, non tender, soft Extremities: swelling Froy Jessica MD May 19, 2018 09:12
[2018-05-19] MEDS: cefTRIAXone 1 GM in D5W 55 ML IVPB SCH ×2 (10:04→21:00)
[2018-05-19 12:00] VITALS: BP 149/75
--- NOTE | 2018-05-19 14:30 | Consultation ---
DATE OF CONSULTATION: 05/19/2018 NEPHROLOGY CONSULTATION CONSULTING PHYSICIAN: Milo Guillaume M.D. REFERRING PHYSICIANS: 1. Alden Roberto M.D. 2. Juan C Carrillo M.D. REASON FOR CONSULTATION: Edema, abnormal urinalysis, rhabdomyolysis. HISTORY OF PRESENT ILLNESS: The patient is an 88-year-old man, who presents with generalized weakness and fever. He was found to have pyuria, hematuria, proteinuria and a positive urine culture for gram-negative rods. He has had worsening leg edema, but no definite CHF. 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 ALLERGIES: None known. HOME MEDICATIONS: Include vitamin B12, folic acid, furosemide, glipizide, DiaBeta, lisinopril, magnesium, Crestor, and vitamin D. PAST SURGICAL HISTORY: Eye surgery for cataract. HABITS: He smoked in the distant past. Used some alcohol in the past. SYSTEM REVIEW: HEAD, EYES, EARS, NOSE, AND THROAT: He states vision is good. He has impaired hearing. ENDOCRINE: History of diabetes. No known thyroid disease. PULMONARY: Pulmonary embolism found on this admission on CT angio. Denies shortness of breath or productive cough. CARDIAC: No angina or OK. No history of CHF. GASTROINTESTINAL: No GI bleeding or ulcers. He has had severe anorexia. GENITOURINARY: A [place] catheter is in place. He states he has no trouble voiding. NEUROLOGIC: No known stroke or seizures. MUSCULOSKELETAL: No swollen joints. PHYSICAL EXAMINATION: GENERAL: The patient is alert, elderly man, lying in bed, in no acute distress. VITAL SIGNS: Temperature 97.9, pulse 75, respiratory rate 20, blood pressure 118/81. HEAD, EYES, EARS, NOSE, AND THROAT: Sclerae are nonicteric. Ocular motions intact in all directions. Oral mucosa moist. NECK: No adenopathy. LUNGS: Clear. HEART: Regular rhythm. I hear no murmur. ABDOMEN: Soft without organomegaly or masses. EXTREMITIES: Show 1 to 2+ edema. NEUROLOGIC: He is alert and responsive. Ocular motions intact in all directions. Smile is symmetric. He moves all extremities. He has generalized weakness. GENITOURINARY: A [place] catheter is in place. PERTINENT LABORATORY DATA: Urinalysis shows 3+ protein, too numerous to count red cells, too numerous to count white cells. CPK is 739, 422 repeat. Sodium 140, potassium 3.2, chloride 105, CO2 29, BUN 16, creatinine 0.5. Albumin very low at 2.1. Globulin 3.2. Cholesterol 138. TSH 1.29. IMPRESSION: 1. Urinary tract infection. 2. Hematuria possibly from UTI. 3. Rhabdomyolysis, mild. 4. MGUS with low serum albumin. 5. Pulmonary embolism. 6. Distended bladder, mild bilateral hydronephrosis and hydroureter on admission likely due to urinary retention, possibly BPH. 7. Leg edema likely due to low albumin and lymphedema. PLAN: At this time, the patient will be hydrated. His potassium will be replaced. We will check the final urine culture and since he has a [place] 24-hour urine creatinine clearance and protein. We will place him on medications for BPH and voiding trial in a few days. Milo Guillaume M.D. DR: TISHA/VIVIEN JOB#: [id number] CC:
[2018-05-19] MEDS: D5 1/2NS w/KCl 40meq 1000ml 1,000 ML IV SCH (14:59)
[2018-05-19 16:00] VITALS: BP 145/75
--- NOTE | 2018-05-19 17:46 | Pulmonology Progress Note ---
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) (4) Pulmonary embolism (5) Urinary tract infection-culture pending (6) CHF (7) Bilateral leg edema (8) Esophageal dysmotility Assessment/Plan Heparin gtt ---> will need at least 3-6 months of A/C F/U TTE Monitor volumes and renal function, mIVF Renal evaluation NPO, [employer] therapy GI evaluation CTX, F/U Cx's Glipizide, Glyburide + SSI PT/OT Subjective Constitutional: Reports: no symptoms HEENT: Repors: no symptoms Respiratory: Reports: no symptoms Gastrointestinal/Abdominal: Reports: no symptoms Allergies: Coded Allergies: HYDRALAZINE (Unverified Allergy, Unknown, Rash, 05/14/15) METFORMIN (Unverified Allergy, Unknown, NAUSEA ONLY, 05/14/15) Subjective FAILED SWallow NPO nto using bipap on o2 no cp nv or bleeding nonambulatory Objective Last 24 Hour Vital Signs Date Time Temp Pulse Resp B/P (MAP) Pulse Ox O2 Delivery O2 Flow Rate FiO2 05/19/18 12:00 98.2 72 18 149/75 (99) 98 05/19/18 11:38 78 05/19/18 09:00 Room Air 05/19/18 09:00 118/81 05/19/18 08:00 72 05/19/18 08:00 97.9 75 20 118/81 (93) 96 05/19/18 04:00 98.8 72 18 149/75 (99) 97 05/19/18 04:00 77 05/19/18 00:00 65 05/19/18 00:00 98.0 76 19 140/79 (99) 96 05/18/18 21:00 Room Air 05/18/18 20:00 65 05/18/18 20:00 98.3 70 19 119/65 (83) 94 Intake and Output 05/18/18 05/19/18 19:00 07:00 Intake Total 578.608 ml Output Total 400 ml 450 ml Balance 178.608 ml -450 ml Intake Oral 200 ml IV Total 378.608 ml Output Urine Total 400 ml 450 ml General Appearance: WD/WN Respiratory/Chest: rhonchi Cardiovascular: normal rate, regular rhythm Abdomen: soft, non tender, no organomegaly, non distended Skin: no rash Neurologic/Psychiatric: alert Lymphatic: no neck adenopathy Microbiology Date/Time Source Procedure Growth Status 05/17/18 23:10 Blood Blood Culture - Preliminary NO GROWTH AFTER 24 HOURS Resulted 05/17/18 23:00 Blood Blood Culture - Preliminary NO GROWTH AFTER 24 HOURS Resulted 05/18/18 18:45 Urine,Clean Catch Urine Culture - Preliminary NO GROWTH Resulted 05/17/18 19:05 Urine,Clean Catch Urine Culture - Preliminary Gram Negative Thom Resulted Laboratory Tests 05/18/18 18:45: Urine Color Yellow, Urine Appearance Very cloudy, Urine pH 5, Urine Specific [place] 1.015, Urine Protein 3+H, Urine Glucose (UA) Negative, Urine Ketones Negative, Urine Blood 5+H, Urine Nitrite Negative, Urine Bilirubin Negative, Urine Urobilinogen 1H, Urine Leukocyte Esterase 2+H, Urine RBC TntcH, Urine WBC TntcH, Urine Squamous Epithelial Cells None, Urine Bacteria ManyH, Urine Random Creatinine [Pending], Urine Random Microalbumin [Pending], Urine Microalbumin/ Creatinine Ratio [Pending] 05/19/18 04:14: White Blood Count 4.4L, Red Blood Count 3.54L, Hemoglobin 10.9L, Hematocrit 33.2L, Mean Corpuscular Volume 94, Mean Corpuscular Hemoglobin 30.9, Mean Corpuscular Hemoglobin Concent 33.0, Red Cell Distribution Width 14.7, Platelet Count 149L, Mean Platelet Volume 6.0L, Neutrophils (%) (Auto) 57.1, Lymphocytes (%) (Auto) 25.2, Monocytes (%) (Auto) 12.0H, Eosinophils (%) (Auto) 4.8H, Basophils (%) (Auto) 0.9, Activated Partial Thromboplast Time 79H, Sodium Level 140, Potassium Level 3.2L, Chloride Level 105, Carbon Dioxide Level 29, Anion Gap 6, Blood Urea Nitrogen 16, Creatinine 0.5L, Estimat Glomerular Filtration Rate , Glucose Level 75, Calcium Level 8.2L, Total Bilirubin 0.4, Aspartate Amino Transf (AST/SGOT) 46H, Alanine Aminotransferase (ALT/SGPT) 68, Alkaline Phosphatase 41L, Total Creatine Kinase 422H, Total Protein 5.3L, Albumin 2.1L, Globulin 3.2, Albumin/Globulin Ratio 0.7L 05/19/18 16:00: Stool Occult Blood [Pending] Current Medications Medications (Trade) Dose Ordered Sig/Myrtle Route PRN Reason Start Time Stop Time Status Last Admin Dose Admin Acetaminophen (Tylenol) 650 mg Q4H PRN ORAL Mild Pain/Temp > 100.5 05/17/18 23:00 06/16/18 22:59 Acetaminophen/ Hydrocodone Bitart ([place] 10/325) 1 tab Q4H PRN ORAL Severe Pain (Pain Scale 7-10) 05/17/18 23:00 05/24/18 22:59 Acetaminophen/ Hydrocodone Bitart ([place] 5/325) 1 tab Q4H PRN ORAL Moderate Pain (Pain Scale 4-6) 05/17/18 23:00 05/24/18 22:59 Atorvastatin Calcium (Lipitor) 20 mg BEDTIME ORAL 05/18/18 21:00 06/17/18 20:59 05/18/18 21:24 Ceftriaxone Sodium 1 gm/ Dextrose 55 ml @ 110 mls/hr Q12HR IVPB 05/18/18 09:00 05/25/18 08:59 05/19/18 10:04 Dextrose (Dextrose 50%) 50 ml Q30M PRN IV Hypoglycemia 05/17/18 23:00 06/16/18 22:59 Dextrose/ Electrolytes 1,000 ml @ 75 mls/hr [id number] IV 05/19/18 12:30 06/18/18 12:29 05/19/18 14:59 Diphenhydramine HCl (Benadryl) 25 mg Q6H PRN ORAL Itching 05/17/18 23:00 06/16/18 22:59 Finasteride (Proscar) 5 mg DAILY ORAL 05/19/18 11:38 06/18/18 11:37 Glipizide (Glucotrol) 10 mg BID ORAL 05/18/18 09:00 06/17/18 08:59 05/18/18 17:12 Heparin Sodium/ Dextrose 500 ml @ 28.576 mls/ hr ADJUST PER PROTOCOL IV 05/18/18 04:00 06/17/18 03:59 05/19/18 00:57 Insulin Aspart (NovoLOG) BEFORE MEALS AND HS SUBQ 05/18/18 06:30 06/17/18 06:29 Iopamidol (Isovue-370 150ml) 150 ml NOW PRN INJ Radiology Procedure 05/18/18 00:45 05/20/18 00:35 Lisinopril (Prinivil) 40 mg DAILY ORAL 05/18/18 09:00 06/17/18 08:59 05/18/18 09:32 Magnesium Chloride (Slow-Mag) 1 tab DAILY ORAL 05/18/18 09:00 06/17/18 08:59 05/18/18 10:04 Ondansetron HCl (Zofran) 4 mg Q6H PRN IVP Nausea & Vomiting 05/17/18 23:00 06/16/18 22:59 Tamsulosin HCl (Flomax) 0.4 mg BID ORAL 05/19/18 18:00 06/18/18 17:59 Vitamin D (Vitamin D) 1,000 intlu DAILY ORAL 05/18/18 09:00 06/17/18 08:59 05/18/18 09:31 Zaina Kuhn DO May 19, 2018 17:46
[2018-05-19] MEDS: Tamsulosin 0.4mg cap ORAL SCH (18:00)
[2018-05-19 20:00] VITALS: BP 160/86
[2018-05-19 20:54] LABS: CREATININE 0.5 MG/DL (0.55-1.30)
[2018-05-19] MEDS: Atorvastatin 20mg tab ORAL SCH (21:00)
--- NOTE | 2018-05-19 23:21 | Cardiology Progress Note ---
Assessment/Plan Assessment/Plan 1. Bilateral lower extremity edema. Review of 2D echocardiography does not show any evidence of LV systolic and diastolic function. The Possibilities are hypoalbuminemia or lymphedema, consider compression stockings on both lower extremity, pressure about 25 to 30 mmHg. DVT is ruled out by obtaining lower extremity venous duplex. pulmonary embolism on herparin gtt, consider switching to rivaroxaban 15 mg p.o. twice daily for 21 days and then 20 mg p.o. daily thereafter. 2. History of hypertension, optimize lisinopril. 4. History of diabetes mellitus. Consider atorvastatin to the Objective Last 24 Hour Vital Signs Date Time Temp Pulse Resp B/P (MAP) Pulse Ox O2 Delivery O2 Flow Rate FiO2 05/19/18 20:00 99.0 107 19 160/86 (110) 97 05/19/18 16:08 57 05/19/18 16:00 97.6 69 22 145/75 (98) 98 05/19/18 12:00 98.2 72 18 149/75 (99) 98 05/19/18 11:38 78 05/19/18 09:00 Room Air 05/19/18 09:00 118/81 05/19/18 08:00 72 05/19/18 08:00 97.9 75 20 118/81 (93) 96 05/19/18 04:00 98.8 72 18 149/75 (99) 97 05/19/18 04:00 77 05/19/18 00:00 65 05/19/18 00:00 98.0 76 19 140/79 (99) 96 Intake and Output 05/18/18 05/19/18 19:00 07:00 Intake Total 578.608 ml Output Total 400 ml 450 ml Balance 178.608 ml -450 ml Intake Oral 200 ml IV Total 378.608 ml Output Urine Total 400 ml 450 ml Laboratory Tests Test 05/19/18 04:14 05/19/18 16:00 White Blood Count 4.4 K/UL (4.8-10.8) L Red Blood Count 3.54 M/UL (4.70-6.10) L Hemoglobin 10.9 G/DL (14.2-18.0) L Hematocrit 33.2 % (42.0-52.0) L Mean Corpuscular Volume 94 FL (80-99) Mean Corpuscular Hemoglobin 30.9 PG (27.0-31.0) Mean Corpuscular Hemoglobin Concent 33.0 G/DL (32.0-36.0) Red Cell Distribution Width 14.7 % (11.6-14.8) Platelet Count 149 K/UL (150-450) L Mean Platelet Volume 6.0 FL (6.5-10.1) L Neutrophils (%) (Auto) 57.1 % (45.0-75.0) Lymphocytes (%) (Auto) 25.2 % (20.0-45.0) Monocytes (%) (Auto) 12.0 % (1.0-10.0) H Eosinophils (%) (Auto) 4.8 % (0.0-3.0) H Basophils (%) (Auto) 0.9 % (0.0-2.0) Activated Partial Thromboplast Time 79 SEC (23-33) H Sodium Level 140 MMOL/L (136-145) Potassium Level 3.2 MMOL/L (3.5-5.1) L Chloride Level 105 MMOL/L (98-107) Carbon Dioxide Level 29 MMOL/L (21-32) Anion Gap 6 mmol/L (5-15) Blood Urea Nitrogen 16 mg/dL (7-18) Creatinine 0.5 MG/DL (0.55-1.30) L Estimat Glomerular Filtration Rate mL/min (>60) Glucose Level 75 MG/DL (74-106) Calcium Level 8.2 MG/DL (8.5-10.1) L Total Bilirubin 0.4 MG/DL (0.2-1.0) Aspartate Amino Transf (AST/SGOT) 46 U/L (15-37) H Alanine Aminotransferase (ALT/SGPT) 68 U/L (12-78) Alkaline Phosphatase 41 U/L (46-116) L Total Creatine Kinase 422 U/L (26-308) H Total Protein 5.3 G/DL (6.4-8.2) L Albumin 2.1 G/DL (3.4-5.0) L Globulin 3.2 g/dL Albumin/Globulin Ratio 0.7 (1.0-2.7) L Stool Occult Blood Pending Microbiology Date/Time Source Procedure Growth Status 05/17/18 23:10 Blood Blood Culture - Preliminary NO GROWTH AFTER 24 HOURS Resulted 05/17/18 23:00 Blood Blood Culture - Preliminary NO GROWTH AFTER 24 HOURS Resulted 05/18/18 18:45 Urine,Clean Catch Urine Culture - Preliminary NO GROWTH Resulted 05/17/18 19:05 Urine,Clean Catch Urine Culture - Preliminary Gram Negative Thom Resulted Anthony Vazquez MD May 19, 2018 23:21
[2018-05-20] VITALS: BP 136/75
[2018-05-20] MEDS: D5 1/2NS w/KCl 40meq 1000ml 1,000 ML IV SCH ×3 (01:34→23:57)
[2018-05-20 04:00] VITALS: BP 116/79
[2018-05-20 04:44] LABS: BASOPHILS % (AUTO) 2.2 % (0.0-2.0); EOSINOPHILS % (AUTO) 4.7 % (0.0-3.0); HEMATOCRIT 32.8 % (42.0-52.0); LYMPHOCYTES % (AUTO) 20.9 % (20.0-45.0); MEAN CORPUSCULAR VOLUME 93 FL (80-99); MONOCYTES % (AUTO) 14.6 % (1.0-10.0); NEUTROPHILS % (AUTO) 57.6 % (45.0-75.0); PLATELET COUNT 172 K/UL (150-450); RED BLOOD COUNT 3.54 M/UL (4.70-6.10); RED CELL DISTRIBUTION WIDTH 14.2 % (11.6-14.8)
[2018-05-20 04:59] LABS: ALANINE AMINOTRANSFERASE 54 U/L (12-78); ALBUMIN 2.1 G/DL (3.4-5.0); ALBUMIN/GLOBULIN RATIO 0.7 (1.0-2.7); ALKALINE PHOSPHATASE 39 U/L (46-116); ANION GAP 6 mmol/L (5-15); ASPARTATE AMINO TRANSFERASE 35 U/L (15-37); BILIRUBIN,TOTAL 0.4 MG/DL (0.2-1.0); BLOOD UREA NITROGEN 4 mg/dL (7-18); CALCIUM 8.1 MG/DL (8.5-10.1); CARBON DIOXIDE 29 MMOL/L (21-32); CHLORIDE 104 MMOL/L (98-107); CREATININE 0.5 MG/DL (0.55-1.30); INR 1.1 (0.9-1.1); POTASSIUM 3.4 MMOL/L (3.5-5.1); SODIUM 139 MMOL/L (136-145)
[2018-05-20 05:54] LABS: % IRON SATURATION 37 % (15-50); IRON 65 ug/dL (50-175); TOTAL IRON BINDING CAPACITY 177 ug/dL (250-450)
[2018-05-20] MEDS: Heparin 25,000u/D5W 500ml 500 ML IV SCH ×4 (06:19→20:32)
[2018-05-20] MEDS: NovoLOG Insulin Flexpen SUBQ SCH ×4 (06:19→20:53)
[2018-05-20 08:00] VITALS: BP 149/88
--- NOTE | 2018-05-20 08:24 | General Progress Note ---
Assessment/Plan Problem List: (1) Anemia ICD Codes: D64.9 - Anemia, unspecified SNOMED: 201089638 (2) Esophageal dysmotility ICD Codes: K22.4 - Dyskinesia of esophagus SNOMED: 326396295 (3) Pulmonary embolism ICD Codes: I26.99 - Other pulmonary embolism without acute cor pulmonale SNOMED: 94644746 (4) CHF (congestive heart failure) ICD Codes: I50.9 - Heart failure, unspecified SNOMED: 49526005 Assessment/Plan had nose bleed with NGT attempts yesterday unable to get dobhoff tube today from the [facility] plan dobhoff tube placement tomorrow if no further nose bleed may need peg when is ok to be off anticoagulation for at least 12 hours anemia work up fu cardiology recs Subjective ROS Limited/Unobtainable: Yes Allergies: Coded Allergies: HYDRALAZINE (Unverified Allergy, Unknown, Rash, 05/14/15) METFORMIN (Unverified Allergy, Unknown, NAUSEA ONLY, 05/14/15) Subjective dysphagia Objective Last 24 Hour Vital Signs Date Time Temp Pulse Resp B/P (MAP) Pulse Ox O2 Delivery O2 Flow Rate FiO2 05/20/18 04:00 67 05/20/18 04:00 98.9 79 18 116/79 (91) 96 05/20/18 00:00 97.8 87 22 136/75 (95) 96 05/20/18 00:00 69 05/19/18 21:00 Room Air 05/19/18 20:00 99.0 107 19 160/86 (110) 97 05/19/18 16:08 57 05/19/18 16:00 97.6 69 22 145/75 (98) 98 05/19/18 12:00 98.2 72 18 149/75 (99) 98 05/19/18 11:38 78 05/19/18 09:00 Room Air 05/19/18 09:00 118/81 Intake and Output 05/19/18 05/20/18 19:00 07:00 Output Total 800 ml 600 ml Balance -800 ml -600 ml Output Urine Total 800 ml 600 ml # Bowel Movements 1 Laboratory Tests 05/19/18 16:00: Stool Occult Blood [Pending] 05/20/18 04:15: White Blood Count 5.0, Red Blood Count 3.54L, Hemoglobin 11.0L, Hematocrit 32.8L , Mean Corpuscular Volume 93, Mean Corpuscular Hemoglobin 30.9, Mean Corpuscular Hemoglobin Concent 33.4, Red Cell Distribution Width 14.2, Platelet Count 172, Mean Platelet Volume 5.8L, Neutrophils (%) (Auto) 57.6, Lymphocytes ( %) (Auto) 20.9, Monocytes (%) (Auto) 14.6H, Eosinophils (%) (Auto) 4.7H, Basophils (%) (Auto) 2.2H, Prothrombin Time 11.2, Prothromb Time International Ratio 1.1, Activated Partial Thromboplast Time 99H, Sodium Level 139, Potassium Level 3.4L, Chloride Level 104, Carbon Dioxide Level 29, Anion Gap 6, Blood Urea Nitrogen 4L, Creatinine 0.5L, Estimat Glomerular Filtration Rate , Glucose Level 150H, Calcium Level 8.1L, Iron Level 65, Total Iron Binding Capacity 177L , Percent Iron Saturation 37, Unsaturated Iron Binding 112, Total Bilirubin 0.4 , Aspartate Amino Transf (AST/SGOT) 35, Alanine Aminotransferase (ALT/SGPT) 54, Alkaline Phosphatase 39L, Total Protein 5.1L, Albumin 2.1L, Globulin 3.0, Albumin/Globulin Ratio 0.7L, Carcinoembryonic Antigen [Pending] Height (Feet): 5 Height (Inches): 10.00 Weight (Pounds): 175 General Appearance: alert EENT: normal ENT inspection Neck: supple Cardiovascular: normal rate Respiratory/Chest: decreased breath sounds Abdomen: normal bowel sounds, non tender, soft Extremities: non-tender Froy Jessica MD May 20, 2018 08:24
[2018-05-20] MEDS: GlipiZIDE 5mg tab ORAL SCH (09:00)
[2018-05-20] MEDS: Tamsulosin 0.4mg cap ORAL SCH ×2 (09:00→18:00)
[2018-05-20] MEDS: Lisinopril 20mg tab ORAL SCH (09:00)
[2018-05-20] MEDS: Vitamin D 400 INTLU TAB ORAL SCH (09:00)
[2018-05-20] MEDS: Magnesium Chloride w/Calcium Tab ORAL SCH (09:00)
[2018-05-20] MEDS: cefTRIAXone 1 GM in D5W 55 ML IVPB SCH ×2 (09:24→20:49)
--- NOTE | 2018-05-20 10:56 | Nephrology Progress Note ---
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 dysmotility Plan hydration better, hematuria cleared, small amount hemoptysis, cxr pend, on heparin for PE, kcl replace ongoing Subjective Constitutional: Reports: weakness HEENT: Reports: no symptoms Genitourinary: Reports: hematuria, incontinence Neurologic/Psychiatric: Reports: no symptoms Objective Objective Last 24 Hour Vital Signs Date Time Temp Pulse Resp B/P (MAP) Pulse Ox O2 Delivery O2 Flow Rate FiO2 05/20/18 08:49 Room Air 05/20/18 08:00 99.0 79 18 149/88 (108) 100 05/20/18 08:00 74 05/20/18 04:00 67 05/20/18 04:00 98.9 79 18 116/79 (91) 96 05/20/18 00:00 97.8 87 22 136/75 (95) 96 05/20/18 00:00 69 05/19/18 21:00 Room Air 05/19/18 20:00 99.0 107 19 160/86 (110) 97 05/19/18 16:08 57 05/19/18 16:00 97.6 69 22 145/75 (98) 98 05/19/18 12:00 98.2 72 18 149/75 (99) 98 05/19/18 11:38 78 Intake and Output 05/19/18 05/20/18 18:59 06:59 Output Total 800 ml 600 ml Balance -800 ml -600 ml Output Urine Total 800 ml 600 ml # Bowel Movements 1 Laboratory Tests 05/19/18 16:00: Stool Occult Blood Negative 05/20/18 04:15: White Blood Count 5.0, Red Blood Count 3.54L, Hemoglobin 11.0L, Hematocrit 32.8L , Mean Corpuscular Volume 93, Mean Corpuscular Hemoglobin 30.9, Mean Corpuscular Hemoglobin Concent 33.4, Red Cell Distribution Width 14.2, Platelet Count 172, Mean Platelet Volume 5.8L, Neutrophils (%) (Auto) 57.6, Lymphocytes ( %) (Auto) 20.9, Monocytes (%) (Auto) 14.6H, Eosinophils (%) (Auto) 4.7H, Basophils (%) (Auto) 2.2H, Prothrombin Time 11.2, Prothromb Time International Ratio 1.1, Activated Partial Thromboplast Time 99H, Sodium Level 139, Potassium Level 3.4L, Chloride Level 104, Carbon Dioxide Level 29, Anion Gap 6, Blood Urea Nitrogen 4L, Creatinine 0.5L, Estimat Glomerular Filtration Rate , Glucose Level 150H, Calcium Level 8.1L, Iron Level 65, Total Iron Binding Capacity 177L , Percent Iron Saturation 37, Unsaturated Iron Binding 112, Total Bilirubin 0.4 , Aspartate Amino Transf (AST/SGOT) 35, Alanine Aminotransferase (ALT/SGPT) 54, Alkaline Phosphatase 39L, Total Protein 5.1L, Albumin 2.1L, Globulin 3.0, Albumin/Globulin Ratio 0.7L, Carcinoembryonic Antigen [Pending] Height (Feet): 5 Height (Inches): 10.00 Weight (Pounds): 175 General Appearance: no apparent distress, alert EENT: PERRL/EOMI Neck: normal alignment Cardiovascular: regular rhythm Respiratory/Chest: rhonchi - bilaterally Abdomen: non tender, soft 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
--- NOTE | 2018-05-20 11:12 | Cardiology Report ---
APPROVED REPORT EKG Measurement Heart [id number] Normal sinus rhythm Septal infarct, age undetermined Abnormal ECG
--- NOTE | 2018-05-20 11:41 | Diagnostic Imaging Report ---
EXAM: XR Chest, 1 View CLINICAL HISTORY: COUGH TECHNIQUE: Frontal view of the chest. COMPARISON: Chest x-ray 05/17/18 1613 FINDINGS: Lungs: Hypoventilatory lungs. Bibasilar lung atelectasis. Pleural space: Unremarkable. No pneumothorax. Heart: Unremarkable. No cardiomegaly. Mediastinum: Unremarkable. Bones/joints: Unremarkable. Vasculature: Aortic knob calcification. Upper abdomen: Gassy distended loops of bowel in the upper abdomen. IMPRESSION: 1. Hypoventilatory lungs. Bibasilar lung atelectasis. 2. Gassy distended loops of bowel in the upper abdomen.
[2018-05-20 12:00] VITALS: BP 179/97
--- NOTE | 2018-05-20 15:28 | Cardiology Progress Note ---
Assessment/Plan Assessment/Plan 1. Bilateral lower extremity edema. 2D echocardiography does not does not support LV systolic or diastolic dysfunction. The Possibilities are hypoalbuminemia or lymphedema, consider compression stockings on both lower extremity, pressure about 25 to 30 mmHg. DVT is ruled out by obtaining lower extremity venous duplex. 2. Pulmonary embolism on heparin gtt, consider switching to rivaroxaban 15 mg p.o. twice daily for 21 days and then 20 mg p.o. daily thereafter. 3. History of hypertension, spikes here and there, add amlodipine, continue lisinopril, clonidine as needed. 4. History of diabetes mellitus. Consider atorvastatin. Subjective Subjective Had spikes of HTN. Sinus rhythm at rate of 74. Objective Last 24 Hour Vital Signs Date Time Temp Pulse Resp B/P (MAP) Pulse Ox O2 Delivery O2 Flow Rate FiO2 05/20/18 12:00 96.6 74 20 179/97 (124) 100 05/20/18 11:33 79 05/20/18 08:49 Room Air 05/20/18 08:00 99.0 79 18 149/88 (108) 100 05/20/18 08:00 74 05/20/18 04:00 67 05/20/18 04:00 98.9 79 18 116/79 (91) 96 05/20/18 00:00 97.8 87 22 136/75 (95) 96 05/20/18 00:00 69 05/19/18 21:00 Room Air 05/19/18 20:00 99.0 107 19 160/86 (110) 97 05/19/18 16:08 57 05/19/18 16:00 97.6 69 22 145/75 (98) 98 Intake and Output 05/19/18 05/20/18 18:59 06:59 Output Total 800 ml 600 ml Balance -800 ml -600 ml Output Urine Total 800 ml 600 ml # Bowel Movements 1 2D Echo: LVEF 55%, Grade I LVDD, no e/o RV strain, poor quality images Laboratory Tests Test 05/19/18 16:00 05/20/18 04:15 05/20/18 11:38 Stool Occult Blood Negative (NEGATIVE) White Blood Count 5.0 K/UL (4.8-10.8) Red Blood Count 3.54 M/UL (4.70-6.10) L Hemoglobin 11.0 G/DL (14.2-18.0) L Hematocrit 32.8 % (42.0-52.0) L Mean Corpuscular Volume 93 FL (80-99) Mean Corpuscular Hemoglobin 30.9 PG (27.0-31.0) Mean Corpuscular Hemoglobin Concent 33.4 G/DL (32.0-36.0) Red Cell Distribution Width 14.2 % (11.6-14.8) Platelet Count 172 K/UL (150-450) Mean Platelet Volume 5.8 FL (6.5-10.1) L Neutrophils (%) (Auto) 57.6 % (45.0-75.0) Lymphocytes (%) (Auto) 20.9 % (20.0-45.0) Monocytes (%) (Auto) 14.6 % (1.0-10.0) H Eosinophils (%) (Auto) 4.7 % (0.0-3.0) H Basophils (%) (Auto) 2.2 % (0.0-2.0) H Prothrombin Time 11.2 SEC (9.30-11.50) Prothromb Time International Ratio 1.1 (0.9-1.1) Activated Partial Thromboplast Time 99 SEC (23-33) H 48 SEC (23-33) H Sodium Level 139 MMOL/L (136-145) Potassium Level 3.4 MMOL/L (3.5-5.1) L Chloride Level 104 MMOL/L (98-107) Carbon Dioxide Level 29 MMOL/L (21-32) Anion Gap 6 mmol/L (5-15) Blood Urea Nitrogen 4 mg/dL (7-18) L Creatinine 0.5 MG/DL (0.55-1.30) L Estimat Glomerular Filtration Rate mL/min (>60) Glucose Level 150 MG/DL (74-106) H Calcium Level 8.1 MG/DL (8.5-10.1) L Iron Level 65 ug/dL (50-175) Total Iron Binding Capacity 177 ug/dL (250-450) L Percent Iron Saturation 37 % (15-50) Unsaturated Iron Binding 112 ug/dL (112-346) Total Bilirubin 0.4 MG/DL (0.2-1.0) Aspartate Amino Transf (AST/SGOT) 35 U/L (15-37) Alanine Aminotransferase (ALT/SGPT) 54 U/L (12-78) Alkaline Phosphatase 39 U/L (46-116) L Total Protein 5.1 G/DL (6.4-8.2) L Albumin 2.1 G/DL (3.4-5.0) L Globulin 3.0 g/dL Albumin/Globulin Ratio 0.7 (1.0-2.7) L Carcinoembryonic Antigen Pending Microbiology Date/Time Source Procedure Growth Status 05/17/18 23:10 Blood Blood Culture - Preliminary NO GROWTH AFTER 48 HOURS Resulted 05/17/18 23:00 Blood Blood Culture - Preliminary NO GROWTH AFTER 48 HOURS Resulted 05/18/18 18:45 Urine,Clean Catch Urine Culture - Preliminary NO GROWTH AFTER 24 HOURS Resulted 05/17/18 19:05 Urine,Clean Catch Urine Culture - Final Citrobacter Koseri Complete Objective 1. Bilateral lower extremity edema. Review of 2D echocardiography does not show any evidence of LV systolic and diastolic function. The patient's lower extremity edema is not explained by his heart structure. Possibilities hypoalbuminemia as the serum alcohol level is low with the presence of low oncotic pressure. This patient may have lymphedema in addition as there is evidence of squaring of the toes. Apparently 40 mg of Lasix daily has not been able to resolve the issue. I would increase a protein-calorie diet as well as consider using compression stockings on both lower extremity, pressure about 25 to 30 mmHg. Prior to this, the patient will require to have the lower extremity venous duplex to rule out DVT as there is also presence of emboli within the right upper lobe. 2. Pulmonary embolism. The patient will require to be started on factor X inhibitors. I will consider Eliquis 10 mg p.o. twice daily for 7 days and rivaroxaban 50 mg p.o. twice daily for 21 days and then 15 and then 20 mg p.o. daily thereafter. We will discuss with Dr. Carrillo. 3. History of hypertension. I will continue lisinopril at this time. The blood pressure appears to be well controlled. 4. History of diabetes mellitus. I will add atorvastatin to the regimen. Anthony Vazquez MD May 20, 2018 15:28
[2018-05-20 16:00] VITALS: BP 157/77
[2018-05-20] MEDS ORDERED: Metoprolol 5mg/5ml Inj IVP SCH ×2 (16:00→18:00)
[2018-05-20] MEDS ORDERED: Enalaprilat 2.5mg/2ml Inj IV SCH ×2 (16:00→18:00)
[2018-05-20] MEDS ORDERED: Heparin 5000 units/ml inj IV SCH (18:00)
[2018-05-20] MEDS ORDERED: Metoprolol 5mg/5ml Inj IVP PRN (18:30)
[2018-05-20 20:00] VITALS: BP 145/70
[2018-05-20] MEDS: Atorvastatin 20mg tab ORAL SCH (20:53)
--- NOTE | 2018-05-20 20:54 | Pulmonology Progress Note ---
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 Subjective Constitutional: Reports: no symptoms HEENT: Repors: other - epistaxis Respiratory: Reports: sputum Gastrointestinal/Abdominal: Reports: no symptoms Genitourinary: Reports: no symptoms Allergies: Coded Allergies: HYDRALAZINE (Unverified Allergy, Unknown, Rash, 05/14/15) METFORMIN (Unverified Allergy, Unknown, NAUSEA ONLY, 05/14/15) Subjective apparently NGT attempted this am with subsequent epistaxis and ? hemotpysis heparin held 1 hour and resumed with high bleeding protocol expectorating old blood at thsi time, minimal amounts FAILED SWallow NPO not using bipap on o2 no cp nv nonambulatory Objective Last 24 Hour Vital Signs Date Time Temp Pulse Resp B/P (MAP) Pulse Ox O2 Delivery O2 Flow Rate FiO2 05/20/18 20:00 97.7 59 18 145/70 (95) 97 05/20/18 18:03 86 152/95 05/20/18 17:59 152/95 05/20/18 16:11 179/97 05/20/18 16:00 86 05/20/18 16:00 97.2 65 18 157/77 (103) 100 05/20/18 12:00 96.6 74 20 179/97 (124) 100 05/20/18 11:33 79 05/20/18 08:49 Room Air 05/20/18 08:00 99.0 79 18 149/88 (108) 100 05/20/18 08:00 74 05/20/18 04:00 67 05/20/18 04:00 98.9 79 18 116/79 (91) 96 05/20/18 00:00 97.8 87 22 136/75 (95) 96 05/20/18 00:00 69 05/19/18 21:00 Room Air Intake and Output 05/19/18 05/20/18 19:00 07:00 Output Total 800 ml 600 ml Balance -800 ml -600 ml Output Urine Total 800 ml 600 ml # Bowel Movements 1 General Appearance: WD/WN HEENT: atraumatic, anicteric Respiratory/Chest: rhonchi Cardiovascular: normal rate, regular rhythm Abdomen: soft, non tender, no organomegaly Extremities: no clubbing Skin: no lesions Neurologic/Psychiatric: responsive Microbiology Date/Time Source Procedure Growth Status 05/17/18 23:10 Blood Blood Culture - Preliminary NO GROWTH AFTER 48 HOURS Resulted 05/17/18 23:00 Blood Blood Culture - Preliminary NO GROWTH AFTER 48 HOURS Resulted 05/18/18 18:45 Urine,Clean Catch Urine Culture - Preliminary NO GROWTH AFTER 24 HOURS Resulted Laboratory Tests 05/20/18 04:15: White Blood Count 5.0, Red Blood Count 3.54L, Hemoglobin 11.0L, Hematocrit 32.8L , Mean Corpuscular Volume 93, Mean Corpuscular Hemoglobin 30.9, Mean Corpuscular Hemoglobin Concent 33.4, Red Cell Distribution Width 14.2, Platelet Count 172, Mean Platelet Volume 5.8L, Neutrophils (%) (Auto) 57.6, Lymphocytes ( %) (Auto) 20.9, Monocytes (%) (Auto) 14.6H, Eosinophils (%) (Auto) 4.7H, Basophils (%) (Auto) 2.2H, Prothrombin Time 11.2, Prothromb Time International Ratio 1.1, Activated Partial Thromboplast Time 99H, Sodium Level 139, Potassium Level 3.4L, Chloride Level 104, Carbon Dioxide Level 29, Anion Gap 6, Blood Urea Nitrogen 4L, Creatinine 0.5L, Estimat Glomerular Filtration Rate , Glucose Level 150H, Calcium Level 8.1L, Iron Level 65, Total Iron Binding Capacity 177L , Percent Iron Saturation 37, Unsaturated Iron Binding 112, Total Bilirubin 0.4 , Aspartate Amino Transf (AST/SGOT) 35, Alanine Aminotransferase (ALT/SGPT) 54, Alkaline Phosphatase 39L, Total Protein 5.1L, Albumin 2.1L, Globulin 3.0, Albumin/Globulin Ratio 0.7L, Carcinoembryonic Antigen [Pending] 05/20/18 11:38: Activated Partial Thromboplast Time 48H 05/20/18 17:15: Activated Partial Thromboplast Time 53H Current Medications Medications (Trade) Dose Ordered Sig/Myrtle Route PRN Reason Start Time Stop Time Status Last Admin Dose Admin Acetaminophen (Tylenol) 650 mg Q4H PRN ORAL Mild Pain/Temp > 100.5 05/17/18 23:00 06/16/18 22:59 Acetaminophen/ Hydrocodone Bitart ([place] 10/325) 1 tab Q4H PRN ORAL Severe Pain (Pain Scale 7-10) 05/17/18 23:00 05/24/18 22:59 Acetaminophen/ Hydrocodone Bitart ([place] 5/325) 1 tab Q4H PRN ORAL Moderate Pain (Pain Scale 4-6) 05/17/18 23:00 05/24/18 22:59 Atorvastatin Calcium (Lipitor) 20 mg BEDTIME ORAL 05/18/18 21:00 06/17/18 20:59 05/18/18 21:24 Ceftriaxone Sodium 1 gm/ Dextrose 55 ml @ 110 mls/hr Q12HR IVPB 05/18/18 09:00 05/25/18 08:59 05/20/18 20:49 Dextrose (Dextrose 50%) 50 ml Q30M PRN IV Hypoglycemia 05/17/18 23:00 06/16/18 22:59 Dextrose/ Electrolytes 1,000 ml @ 75 mls/hr [id number] IV 05/19/18 12:30 06/18/18 12:29 05/20/18 09:19 Diphenhydramine HCl (Benadryl) 25 mg Q6H PRN ORAL Itching 05/17/18 23:00 06/16/18 22:59 Enalaprilat (Vasotec) 0.625 mg Q6H PRN IV PRN SBP>160 05/21/18 18:30 06/20/18 18:29 Finasteride (Proscar) 5 mg DAILY ORAL 05/19/18 11:38 06/18/18 11:37 Heparin Sodium/ Dextrose 500 ml @ 28.576 mls/ hr ADJUST PER PROTOCOL IV 05/20/18 18:00 06/19/18 17:59 05/20/18 20:32 Insulin Aspart (NovoLOG) BEFORE MEALS AND HS SUBQ 05/18/18 06:30 06/17/18 06:29 Magnesium Chloride (Slow-Mag) 1 tab DAILY ORAL 05/18/18 09:00 06/17/18 08:59 05/18/18 10:04 Ondansetron HCl (Zofran) 4 mg Q6H PRN IVP Nausea & Vomiting 05/17/18 23:00 06/16/18 22:59 Tamsulosin HCl (Flomax) 0.4 mg BID ORAL 05/19/18 18:00 06/18/18 17:59 Vitamin D (Vitamin D) 1,000 intlu DAILY ORAL 05/18/18 09:00 06/17/18 08:59 05/18/18 09:31 Zaina Kuhn DO May 20, 2018 20:54
[2018-05-21] VITALS (11 sets, daily range): BP systolic 102–166; BP diastolic 42–91
[2018-05-21] MEDS: Heparin 25,000u/D5W 500ml 500 ML IV SCH ×3 (02:32→15:11)
[2018-05-21] MEDS: NovoLOG Insulin Flexpen SUBQ SCH ×4 (06:16→22:17)
[2018-05-21 06:56] LABS: CREATININE 0.7 MG/DL (0.55-1.30)
[2018-05-21] MEDS: cefTRIAXone 1 GM in D5W 55 ML IVPB SCH ×2 (08:11→21:59)
[2018-05-21] MEDS: Tamsulosin 0.4mg cap ORAL SCH ×2 (08:11→17:29)
[2018-05-21] MEDS: Vitamin D 400 INTLU TAB ORAL SCH (08:11)
[2018-05-21] MEDS: Magnesium Chloride w/Calcium Tab ORAL SCH (08:11)
[2018-05-21 08:35] LABS: BASOPHILS % (AUTO) 1.3 % (0.0-2.0); EOSINOPHILS % (AUTO) 3.7 % (0.0-3.0); HEMATOCRIT 31.6 % (42.0-52.0); HEMOGLOBIN 10.2 G/DL (14.2-18.0); MEAN CORPUSCULAR VOLUME 97 FL (80-99); NEUTROPHILS % (AUTO) 55.9 % (45.0-75.0); PLATELET COUNT 154 K/UL (150-450); RED BLOOD COUNT 3.27 M/UL (4.70-6.10); RED CELL DISTRIBUTION WIDTH 14.8 % (11.6-14.8); WHITE BLOOD COUNT 4.2 K/UL (4.8-10.8)
[2018-05-21 08:50] LABS: ANION GAP 8 mmol/L (5-15); BLOOD UREA NITROGEN 3 mg/dL (7-18); CALCIUM 7.7 MG/DL (8.5-10.1); CARBON DIOXIDE 25 MMOL/L (21-32); CHLORIDE 100 MMOL/L (98-107); CREATININE 0.6 MG/DL (0.55-1.30); POTASSIUM 4.9 MMOL/L (3.5-5.1); SODIUM 133 MMOL/L (136-145)
--- NOTE | 2018-05-21 11:05 | GI Progress Note ---
Assessment/Plan Problems: (1) Dysphasia ICD Codes: R47.02 - Dysphasia SNOMED: 02423765 (2) Severe malnutrition ICD Codes: E43 - Unspecified severe protein-calorie malnutrition SNOMED: 71375100 (3) Esophageal dysmotility ICD Codes: K22.4 - Dyskinesia of esophagus SNOMED: 585602579 (4) Anemia ICD Codes: D64.9 - Anemia, unspecified SNOMED: 554779998 Status: unchanged Status Narrative Discussed with Dr. Jessica Assessment/Plan Speech therapy video swallow study reviewed. Patient noted to be high risk for aspiration. Possible esophageal narrowing or stricture, defer esophagram due to high risk of aspiration Patient will need EGD with possible balloon dilation tomorrow -Hold heparin drip at midnight. -hold dobhoff placement tube today from the Central supply PEG if necessary anemia work up fu cardiology recs Discussed with Dr. Jessica. Thank you for this patient referral, we will follow. The patient was seen and examined at bedside and all new and available data was reviewed in the patients chart. I agree with the above findings, impression and plan. (Patient seen earlier today. Signature stamp does not reflect patient encounter time.). - Froy Jessica MD Subjective Gastrointestinal/Abdominal: Reports: no symptoms Objective Last 24 Hour Vital Signs Date Time Temp Pulse Resp B/P (MAP) Pulse Ox O2 Delivery O2 Flow Rate FiO2 05/21/18 09:00 Room Air 05/21/18 08:00 98.2 74 16 152/89 (110) 98 05/21/18 08:00 63 05/21/18 04:00 66 05/21/18 04:00 98.6 69 18 106/77 (87) 96 05/21/18 00:00 99.0 63 18 143/77 (99) 96 05/21/18 00:00 65 05/20/18 21:00 Room Air 05/20/18 20:00 53 05/20/18 20:00 97.7 59 18 145/70 (95) 97 05/20/18 18:03 86 152/95 05/20/18 17:59 152/95 05/20/18 16:11 179/97 05/20/18 16:00 86 05/20/18 16:00 97.2 65 18 157/77 (103) 100 05/20/18 12:00 96.6 74 20 179/97 (124) 100 05/20/18 11:33 79 Intake and Output 05/20/18 05/21/18 19:00 07:00 Intake Total 1262.188 ml Output Total 2000 ml 400 ml Balance -2000 ml 862.188 ml IV Total 1262.188 ml Output Urine Total 2000 ml 400 ml # Bowel Movements 1 Laboratory Tests Test 05/20/18 11:38 05/20/18 17:15 05/21/18 00:20 05/21/18 08:25 Activated Partial Thromboplast Time 48 SEC (23-33) H 53 SEC (23-33) H 135 SEC (23-33) H 84 SEC (23-33) H White Blood Count 4.2 K/UL (4.8-10.8) L Red Blood Count 3.27 M/UL (4.70-6.10) L Hemoglobin 10.2 G/DL (14.2-18.0) L Hematocrit 31.6 % (42.0-52.0) L Mean Corpuscular Volume 97 FL (80-99) Mean Corpuscular Hemoglobin 31.1 PG (27.0-31.0) H Mean Corpuscular Hemoglobin Concent 32.2 G/DL (32.0-36.0) Red Cell Distribution Width 14.8 % (11.6-14.8) Platelet Count 154 K/UL (150-450) Mean Platelet Volume 5.4 FL (6.5-10.1) L Neutrophils (%) (Auto) 55.9 % (45.0-75.0) Lymphocytes (%) (Auto) 28.0 % (20.0-45.0) Monocytes (%) (Auto) 11.0 % (1.0-10.0) H Eosinophils (%) (Auto) 3.7 % (0.0-3.0) H Basophils (%) (Auto) 1.3 % (0.0-2.0) Sodium Level 133 MMOL/L (136-145) L Potassium Level 4.9 MMOL/L (3.5-5.1) Chloride Level 100 MMOL/L (98-107) Carbon Dioxide Level 25 MMOL/L (21-32) Anion Gap 8 mmol/L (5-15) Blood Urea Nitrogen 3 mg/dL (7-18) L Creatinine 0.6 MG/DL (0.55-1.30) Estimat Glomerular Filtration Rate mL/min (>60) Glucose Level 463 MG/DL (74-106) #H Calcium Level 7.7 MG/DL (8.5-10.1) L Height (Feet): 5 Height (Inches): 10.00 Weight (Pounds): 175 General Appearance: WD/WN, no apparent distress, alert Cardiovascular: normal rate Respiratory/Chest: normal breath sounds, no respiratory distress Abdominal Exam: normal bowel sounds, non tender, soft Extremities: non-tender Greg Harris NP May 21, 2018 11:05
--- NOTE | 2018-05-21 12:35 | Pulmonology Progress Note ---
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) (4) Pulmonary embolism (5) Urinary tract infection-culture pending (6) CHF (7) Bilateral leg edema (8) Esophageal dysmotility, possible stricture (9) traumatic NGt placement with bleeding Assessment/Plan Heparin gtt, hold for EGD Bs control may need PEG resume ACs after procedure in AM Subjective Constitutional: Denies: fever Respiratory: Denies: hemoptysis, shortness of breath Cardiovascular: Denies: chest pain Gastrointestinal/Abdominal: Reports: other - I cannot swallow Allergies: Coded Allergies: HYDRALAZINE (Unverified Allergy, Unknown, Rash, 05/14/15) METFORMIN (Unverified Allergy, Unknown, NAUSEA ONLY, 05/14/15) Objective Last 24 Hour Vital Signs Date Time Temp Pulse Resp B/P (MAP) Pulse Ox O2 Delivery O2 Flow Rate FiO2 05/21/18 09:00 Room Air 05/21/18 08:00 98.2 74 16 152/89 (110) 98 05/21/18 08:00 63 05/21/18 04:00 66 05/21/18 04:00 98.6 69 18 106/77 (87) 96 05/21/18 00:00 99.0 63 18 143/77 (99) 96 05/21/18 00:00 65 05/20/18 21:00 Room Air 05/20/18 20:00 53 05/20/18 20:00 97.7 59 18 145/70 (95) 97 05/20/18 18:03 86 152/95 05/20/18 17:59 152/95 05/20/18 16:11 179/97 05/20/18 16:00 86 05/20/18 16:00 97.2 65 18 157/77 (103) 100 Intake and Output 05/20/18 05/21/18 19:00 07:00 Intake Total 1262.188 ml Output Total 2000 ml 400 ml Balance -2000 ml 862.188 ml IV Total 1262.188 ml Output Urine Total 2000 ml 400 ml # Bowel Movements 1 General Appearance: other - obese HEENT: atraumatic Respiratory/Chest: lungs clear Cardiovascular: normal rate Abdomen: soft, non tender Extremities: no edema Microbiology Date/Time Source Procedure Growth Status 05/18/18 18:45 Urine,Clean Catch Urine Culture - Final NO GROWTH AFTER 48 HOURS Complete Laboratory Tests 05/20/18 17:15: Activated Partial Thromboplast Time 53H 05/21/18 00:20: Activated Partial Thromboplast Time 135H 05/21/18 08:25: Activated Partial Thromboplast Time 84H, White Blood Count 4.2L, Red Blood Count 3.27L, Hemoglobin 10.2L, Hematocrit 31.6L, Mean Corpuscular Volume 97, Mean Corpuscular Hemoglobin 31.1H, Mean Corpuscular Hemoglobin Concent 32.2, Red Cell Distribution Width 14.8, Platelet Count 154, Mean Platelet Volume 5.4L , Neutrophils (%) (Auto) 55.9, Lymphocytes (%) (Auto) 28.0, Monocytes (%) (Auto ) 11.0H, Eosinophils (%) (Auto) 3.7H, Basophils (%) (Auto) 1.3, Sodium Level 133L, Potassium Level 4.9, Chloride Level 100, Carbon Dioxide Level 25, Anion Gap 8, Blood Urea Nitrogen 3L, Creatinine 0.6, Estimat Glomerular Filtration Rate , Glucose Level 463#H, Calcium Level 7.7L Current Medications Medications (Trade) Dose Ordered Sig/Myrtle Route PRN Reason Start Time Stop Time Status Last Admin Dose Admin Acetaminophen (Tylenol) 650 mg Q4H PRN ORAL Mild Pain/Temp > 100.5 05/17/18 23:00 06/16/18 22:59 Acetaminophen/ Hydrocodone Bitart ([place] 10/325) 1 tab Q4H PRN ORAL Severe Pain (Pain Scale 7-10) 05/17/18 23:00 05/24/18 22:59 Acetaminophen/ Hydrocodone Bitart ([place] 5/325) 1 tab Q4H PRN ORAL Moderate Pain (Pain Scale 4-6) 05/17/18 23:00 05/24/18 22:59 Atorvastatin Calcium (Lipitor) 20 mg BEDTIME ORAL 05/18/18 21:00 06/17/18 20:59 05/18/18 21:24 Ceftriaxone Sodium 1 gm/ Dextrose 55 ml @ 110 mls/hr Q12HR IVPB 05/18/18 09:00 05/25/18 08:59 05/21/18 08:11 Dextrose (Dextrose 50%) 50 ml Q30M PRN IV Hypoglycemia 05/17/18 23:00 06/16/18 22:59 Dextrose/ Electrolytes 1,000 ml @ 75 mls/hr [id number] IV 05/19/18 12:30 06/18/18 12:29 05/20/18 23:57 Diphenhydramine HCl (Benadryl) 25 mg Q6H PRN ORAL Itching 05/17/18 23:00 06/16/18 22:59 Enalaprilat (Vasotec) 0.625 mg Q6H PRN IV PRN SBP>160 05/21/18 18:30 06/20/18 18:29 Finasteride (Proscar) 5 mg DAILY ORAL 05/19/18 11:38 06/18/18 11:37 Heparin Sodium/ Dextrose 500 ml @ 23.814 mls/ hr ADJUST PER PROTOCOL IV 05/21/18 02:30 06/19/18 17:59 05/21/18 09:28 Insulin Aspart (NovoLOG) BEFORE MEALS AND HS SUBQ 05/18/18 06:30 06/17/18 06:29 Magnesium Chloride (Slow-Mag) 1 tab DAILY ORAL 05/18/18 09:00 06/17/18 08:59 05/18/18 10:04 Ondansetron HCl (Zofran) 4 mg Q6H PRN IVP Nausea & Vomiting 05/17/18 23:00 06/16/18 22:59 Tamsulosin HCl (Flomax) 0.4 mg BID ORAL 05/19/18 18:00 06/18/18 17:59 Vitamin D (Vitamin D) 1,000 intlu DAILY ORAL 05/18/18 09:00 06/17/18 08:59 05/18/18 09:31 Alden Roberto MD May 21, 2018 12:35
--- NOTE | 2018-05-21 12:35 | Pre-Procedure Note/Attestation ---
Pre-Procedure Note/Attestation Complete Prior to Procedure Planned Procedure: not applicable Procedure Narrative: egd Indications for Procedure Pre-Operative Diagnosis: dysphagia Attestation I attest that I discussed the nature of the procedure; its benefits; risks and complications; and alternatives (and the risks and benefits of such alternatives ), prior to the procedure, with the patient (or the patient's legal entry level marketing representative). I attest that, if there was a reasonable possibility of needing a blood transfusion, the patient (or the patient's legal entry level marketing representative) was given the [facility] standardized written summary, pursuant to the [place] Blood Safety Act ([place] Health and Safety Code # 1645, as amended). I attest that I re-evaluated the patient just prior to the surgery and that there has been no change in the patient's H&P, except as documented below: Froy Jessica MD May 21, 2018 12:34
[2018-05-21] MEDS ORDERED: Propofol 200mg/20ml IV ONE (13:00)
[2018-05-21] MEDS ORDERED: NS 500ML IVPB ONE (13:15)
--- NOTE | 2018-05-21 13:42 | Anethesia Preoperative Eval ---
Anesthesia Pre-op PMH/ROS General Date of Evaluation: May 21, 2018 Time of Evaluation: 13:15 Anesthesiologist: Jennifer ASA Score: ASA 3 Mallampati Score Class I : Soft palate, uvula, fauces, pillars visible Class II: Soft palate, uvula, fauces visible Class III: Soft palate, base of uvula visible Class IV: Only hard plate visible Mallampati Classification: Class III Surgeon: Jaskaran Diagnosis: R/O esophageal stricture Surgical Procedure: Esophageal exploration and possible dilation Family History: no anesthesia problems Allergies: Coded Allergies: HYDRALAZINE (Unverified Allergy, Unknown, Rash, 05/14/15) METFORMIN (Unverified Allergy, Unknown, NAUSEA ONLY, 05/14/15) Medications: see eMAR Patient NPO?: Yes NPO Date: May 20, 2018 NPO Time: 12:00 Past Medical History Cardiovascular: Reports: HTN, other - CHF; Denies: CAD, CA, valve dz, arrhythmia Pulmonary: Reports: other - Pulmonary embolism Endocrine: Reports: DM PMH Narrative: DM, HTN, PE, MGUS, CHF Anesthesia Pre-op Phys. Exam Physician Exam Last Vital Signs Date Time Temp Pulse Resp B/P (MAP) Pulse Ox O2 Delivery O2 Flow Rate FiO2 05/21/18 09:00 Room Air 05/21/18 08:00 98.2 74 16 152/89 (110) 98 Constitutional: NAD Neurologic: CN 2-12 intact Cardiovascular: RRR, no M/R/G Gastrointestinal: S/NT/ND Airway Exam Mallampati Score: Class III MO: full ROM: full Dentures: upper Anesthesia Pre-op A/P Labs Hematology Test 05/21/18 08:25 White Blood Count 4.2 K/UL (4.8-10.8) L Red Blood Count 3.27 M/UL (4.70-6.10) L Hemoglobin 10.2 G/DL (14.2-18.0) L Hematocrit 31.6 % (42.0-52.0) L Mean Corpuscular Volume 97 FL (80-99) Mean Corpuscular Hemoglobin 31.1 PG (27.0-31.0) H Mean Corpuscular Hemoglobin Concent 32.2 G/DL (32.0-36.0) Red Cell Distribution Width 14.8 % (11.6-14.8) Platelet Count 154 K/UL (150-450) Mean Platelet Volume 5.4 FL (6.5-10.1) L Neutrophils (%) (Auto) 55.9 % (45.0-75.0) Lymphocytes (%) (Auto) 28.0 % (20.0-45.0) Monocytes (%) (Auto) 11.0 % (1.0-10.0) H Eosinophils (%) (Auto) 3.7 % (0.0-3.0) H Basophils (%) (Auto) 1.3 % (0.0-2.0) Coagulation Test 05/20/18 17:15 05/21/18 00:20 05/21/18 08:25 Activated Partial Thromboplast Time 53 SEC (23-33) H 135 SEC (23-33) H 84 SEC (23-33) H Chemistry Test 05/21/18 08:25 Sodium Level 133 MMOL/L (136-145) L Potassium Level 4.9 MMOL/L (3.5-5.1) Chloride Level 100 MMOL/L (98-107) Carbon Dioxide Level 25 MMOL/L (21-32) Anion Gap 8 mmol/L (5-15) Blood Urea Nitrogen 3 mg/dL (7-18) L Creatinine 0.6 MG/DL (0.55-1.30) Estimat Glomerular Filtration Rate mL/min (>60) Glucose Level 463 MG/DL (74-106) #H Calcium Level 7.7 MG/DL (8.5-10.1) L Risk Assessment & Plan Assessment: Class 3 patient off Heparin (secondary to PE) for over 1 hour now for esophageal scope to r/o stricture Plan: GA, TIVA Status Change Before Surgery: No Pre-Antibiotics Drug: None Gallo Rodriguez MD May 21, 2018 13:42
--- NOTE | 2018-05-21 13:43 | Immediate Post-Op Evaluation ---
Immediate Post-Op Evalulation Immediate Post-Op Evalulation Procedure: Esophageal scope Date of Evaluation: May 21, 2018 Time of Evaluation: 13:40 IV Fluids: 250 Blood Pressure Systolic: 141 Blood Pressure Diastolic: 80 Pulse Rate: 73 Respiratory Rate: 22 O2 Sat by Pulse Oximetry: 96 Temperature (Fahrenheit): 97.5 Pain Score (1-10): 0 Nausea: No Vomiting: No Complications No complication Patient Status: awake, patent, none Hydration Status: adequate Drug: None Gallo Rodriguez MD May 21, 2018 13:43
--- NOTE | 2018-05-21 13:45 | 48 Hour Post Anesthesia Eval ---
Post Anesthesia Evaluation Procedure: Esophageal scope Date of Evaluation: May 21, 2018 Time of Evaluation: 14:00 Blood Pressure Systolic: 152 0: 83 Pulse Rate: 75 Respiratory Rate: 23 O2 Sat by Pulse Oximetry: 98 Airway: patent Nausea: No Vomiting: No Pain Intensity: 0 Hydration Status: adequate Cardiopulmonary Status: Stable Mental Status/LOC: patient returned to baseline Follow-up Care/Observations: As per surgery Post-Anesthesia Complications: No anesthetic complication Follow-up care needed: N/A Gallo Rodriguez MD May 21, 2018 13:45
--- NOTE | 2018-05-21 14:13 | Diagnostic Imaging Report ---
APPROVED REPORT CPT Code: 99648 Present Symptoms Comments: Pain Elevated D-Dimer BILATERAL: Imaging reveals a patent deep venous system bilaterally. There is no evidence of thrombus within the femoral, popliteal or tibial segments. The greater saphenous veins are also within normal limits. Doppler indicates normal spontaneous flow within these segments.
--- NOTE | 2018-05-21 14:30 | Endoscopy Procedure Note ---
Endoscopy Procedure Note General Indication for Procedure: dysphgia Procedures Performed: EGD Operative Findings/Diagnosis: gastritis Specimen: none Pt Tolerated Procedure Well: Yes Estimated Blood Loss: none Anesthesia Anesthesiologist: alejandro Anesthesia: MAC Inserted Devices Implant(s) used?: No GI Core Measures 50 yrs or older w/o bx or poly: Not Applicable 10yrs. F/U not recommended: Not Applicable Froy Jessica MD May 21, 2018 14:30
--- NOTE | 2018-05-21 14:30 | Nephrology Progress Note ---
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 dysmotility Plan hydration better, hematuria cleared, small amount hemoptysis, on heparin for PE, holding for egd, 1gram proteinuria may be from uti or dm nephropathy but does not expalin edema, likely nutritional Subjective Constitutional: Reports: weakness HEENT: Reports: no symptoms Genitourinary: Reports: incontinence Neurologic/Psychiatric: Reports: no symptoms Objective Objective Last 24 Hour Vital Signs Date Time Temp Pulse Resp B/P (MAP) Pulse Ox O2 Delivery O2 Flow Rate FiO2 05/21/18 14:00 97.8 74 16 164/88 97 Room Air 05/21/18 13:50 72 14 157/91 96 Room Air 05/21/18 13:45 75 23 98 05/21/18 13:43 73 22 96 05/21/18 13:40 79 16 152/83 96 Room Air 05/21/18 13:35 80 15 141/80 99 Room Air 05/21/18 13:30 97.5 75 19 141/78 99 Simple Mask 6 05/21/18 12:00 98.2 73 16 160/80 (106) 98 05/21/18 09:00 Room Air 05/21/18 08:00 98.2 74 16 152/89 (110) 98 05/21/18 08:00 63 05/21/18 04:00 66 05/21/18 04:00 98.6 69 18 106/77 (87) 96 05/21/18 00:00 99.0 63 18 143/77 (99) 96 05/21/18 00:00 65 05/20/18 21:00 Room Air 05/20/18 20:00 53 05/20/18 20:00 97.7 59 18 145/70 (95) 97 05/20/18 18:03 86 152/95 05/20/18 17:59 152/95 05/20/18 16:11 179/97 05/20/18 16:00 86 05/20/18 16:00 97.2 65 18 157/77 (103) 100 Intake and Output 05/20/18 05/21/18 19:00 07:00 Intake Total 1262.188 ml Output Total 2000 ml 400 ml Balance -2000 ml 862.188 ml IV Total 1262.188 ml Output Urine Total 2000 ml 400 ml # Bowel Movements 1 Laboratory Tests 05/20/18 17:15: Activated Partial Thromboplast Time 53H 05/21/18 00:20: Activated Partial Thromboplast Time 135H 05/21/18 08:25: Activated Partial Thromboplast Time 84H, White Blood Count 4.2L, Red Blood Count 3.27L, Hemoglobin 10.2L, Hematocrit 31.6L, Mean Corpuscular Volume 97, Mean Corpuscular Hemoglobin 31.1H, Mean Corpuscular Hemoglobin Concent 32.2, Red Cell Distribution Width 14.8, Platelet Count 154, Mean Platelet Volume 5.4L , Neutrophils (%) (Auto) 55.9, Lymphocytes (%) (Auto) 28.0, Monocytes (%) (Auto ) 11.0H, Eosinophils (%) (Auto) 3.7H, Basophils (%) (Auto) 1.3, Sodium Level 133L, Potassium Level 4.9, Chloride Level 100, Carbon Dioxide Level 25, Anion Gap 8, Blood Urea Nitrogen 3L, Creatinine 0.6, Estimat Glomerular Filtration Rate , Glucose Level 463#H, Calcium Level 7.7L Height (Feet): 5 Height (Inches): 10.00 Weight (Pounds): 175 General Appearance: no apparent distress, alert EENT: normal ENT inspection Neck: normal alignment Cardiovascular: normal rate, regular rhythm Abdomen: soft, no organomegaly Extremities: moderate edema Milo Guillaume MD May 21, 2018 14:30
[2018-05-21] MEDS: D5 1/2NS w/KCl 40meq 1000ml 1,000 ML IV SCH (17:29)
[2018-05-21] MEDS ORDERED: Enalaprilat 2.5mg/2ml Inj IV PRN (18:30)
[2018-05-21] MEDS: Atorvastatin 20mg tab ORAL SCH (21:59)
--- NOTE | 2018-05-21 22:45 | Procedure Note ---
DATE OF PROCEDURE: 05/21/2018 SURGEON: Froy Jessica M.D. PROCEDURE: Upper endoscopy. ANESTHESIOLOGIST: Gallo Rodriguez M.D. INSTRUMENT: Olympus adult flexible upper endoscope. INDICATION: Dysphagia. REASON FOR PROCEDURE: The procedure, risks, benefits, and possible consequences, including hemorrhage, aspiration, perforation and infection, and alternative treatments, were explained to the patient/legal guardian by Dr. Froy Jessica and the patient/legal guardian understood and accepted these risks. PROCEDURE IN DETAIL: After informed consent was obtained and the patient was adequately sedated, Olympus upper endoscope was advanced from the mouth into the stomach. Because of the of the stomach, we could not advance the scope into the duodenum. According to the patient, he had prior history of esophageal stricture and narrowing, but we could not see any obvious narrowing. The patient had some mild diffuse gastritis, but given that the patient was on heparin drip, we did not do any biopsy. 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 Possibly that is the reason for why we could not get the scope through the duodenal bulb because of the paraesophageal hernia. At this time, the upper endoscope was retrieved and procedure was terminated. SUMMARY OF FINDINGS: 1. We could not get the scope in the duodenum. 2. No evidence of any esophageal stricture or narrowing. 3. 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 4. Gastritis, but given the patient on heparin, we did not biopsy it. RECOMMENDATIONS: The patient most probably will need a G-tube given the failed swallow evaluation and there was no evidence of obvious esophageal stricture to explain the inability to eat. We will discuss with the patient to see if he agrees for the PEG, and if he does, we will place it tomorrow. I want to thank Dr. Alden Roberto for this kind referral. Froy Jessica M.D. DR: MARIE JOB#: [id number] CC: Alden Roberto M.D.; Fax#: [phone]
--- NOTE | 2018-05-21 23:48 | Cardiology Progress Note ---
Assessment/Plan Assessment/Plan 1. Bilateral lower extremity edema. 2D echocardiography does not does not support LV systolic or diastolic dysfunction. The Possibilities are hypoalbuminemia or lymphedema, consider compression stockings on both lower extremity, pressure about 25 to 30 mmHg. DVT is ruled out by obtaining lower extremity venous duplex. 2. Pulmonary embolism on heparin gtt, consider switching to rivaroxaban 15 mg p.o. twice daily for 21 days and then 20 mg p.o. daily thereafter. 3. History of hypertension, spikes here and there, add amlodipine, continue lisinopril, clonidine as needed. 4. History of diabetes mellitus. Consider atorvastatin. Subjective Subjective Sinus rhythm at rate of 72. Objective Last 24 Hour Vital Signs Date Time Temp Pulse Resp B/P (MAP) Pulse Ox O2 Delivery O2 Flow Rate FiO2 05/21/18 21:00 Room Air 05/21/18 20:00 98.3 72 19 166/86 (112) 98 05/21/18 20:00 69 05/21/18 16:00 72 05/21/18 16:00 98.6 70 16 125/84 (98) 95 05/21/18 14:00 97.8 74 16 164/88 97 Room Air 05/21/18 13:50 72 14 157/91 96 Room Air 05/21/18 13:45 75 23 98 05/21/18 13:43 73 22 96 05/21/18 13:40 79 16 152/83 96 Room Air 05/21/18 13:35 80 15 141/80 99 Room Air 05/21/18 13:30 97.5 75 19 141/78 99 Simple Mask 6 05/21/18 12:00 71 05/21/18 12:00 98.2 73 16 160/80 (106) 98 05/21/18 09:00 Room Air 05/21/18 08:00 98.2 74 16 152/89 (110) 98 05/21/18 08:00 63 05/21/18 04:00 66 05/21/18 04:00 98.6 69 18 106/77 (87) 96 05/21/18 00:00 99.0 63 18 143/77 (99) 96 05/21/18 00:00 65 Intake and Output 05/20/18 05/21/18 19:00 07:00 Intake Total 1262.188 ml Output Total 2000 ml 400 ml Balance -2000 ml 862.188 ml IV Total 1262.188 ml Output Urine Total 2000 ml 400 ml # Bowel Movements 1 2D Echo: LVEF 55%, Grade I LVDD, no e/o RV strain, poor quality images Laboratory Tests Test 05/21/18 00:20 05/21/18 08:25 Activated Partial Thromboplast Time 135 SEC (23-33) H 84 SEC (23-33) H White Blood Count 4.2 K/UL (4.8-10.8) L Red Blood Count 3.27 M/UL (4.70-6.10) L Hemoglobin 10.2 G/DL (14.2-18.0) L Hematocrit 31.6 % (42.0-52.0) L Mean Corpuscular Volume 97 FL (80-99) Mean Corpuscular Hemoglobin 31.1 PG (27.0-31.0) H Mean Corpuscular Hemoglobin Concent 32.2 G/DL (32.0-36.0) Red Cell Distribution Width 14.8 % (11.6-14.8) Platelet Count 154 K/UL (150-450) Mean Platelet Volume 5.4 FL (6.5-10.1) L Neutrophils (%) (Auto) 55.9 % (45.0-75.0) Lymphocytes (%) (Auto) 28.0 % (20.0-45.0) Monocytes (%) (Auto) 11.0 % (1.0-10.0) H Eosinophils (%) (Auto) 3.7 % (0.0-3.0) H Basophils (%) (Auto) 1.3 % (0.0-2.0) Sodium Level 133 MMOL/L (136-145) L Potassium Level 4.9 MMOL/L (3.5-5.1) Chloride Level 100 MMOL/L (98-107) Carbon Dioxide Level 25 MMOL/L (21-32) Anion Gap 8 mmol/L (5-15) Blood Urea Nitrogen 3 mg/dL (7-18) L Creatinine 0.6 MG/DL (0.55-1.30) Estimat Glomerular Filtration Rate mL/min (>60) Glucose Level 463 MG/DL (74-106) #H Calcium Level 7.7 MG/DL (8.5-10.1) L Objective HEENT: Atraumatic and normocephalic. Anicteric. Pupils are equal, round, and reactive to light and accommodation. Extraocular muscles intact. NECK: JVP is flat close to 0 mmHg. No carotid bruit. Carotid upstroke is 2+ bilaterally. CARDIOVASCULAR: Normal S1, S2. Regular rate and rhythm. No murmurs, gallops, or rubs. PMI is at fourth intercostal space in the midclavicular line. LUNGS: Clear to auscultation bilaterally. ABDOMEN: Soft, nontender, and nondistended. No hepatosplenomegaly. Positive bowel sounds. EXTREMITIES: There is 3 to 4+ edema, squaring of the toes, and excoriations throughout both legs. Anthony Vazquez MD May 21, 2018 23:48
[2018-05-22] VITALS: BP 157/72
[2018-05-22 04:00] VITALS: BP 155/83
[2018-05-22 04:47] LABS: BASOPHILS % (AUTO) 3.5 % (0.0-2.0); EOSINOPHILS % (AUTO) 4.7 % (0.0-3.0); HEMATOCRIT 32.4 % (42.0-52.0); HEMOGLOBIN 10.9 G/DL (14.2-18.0); LYMPHOCYTES % (AUTO) 29.5 % (20.0-45.0); MEAN CORPUSCULAR VOLUME 94 FL (80-99); MONOCYTES % (AUTO) 15.1 % (1.0-10.0); NEUTROPHILS % (AUTO) 47.2 % (45.0-75.0); PLATELET COUNT 168 K/UL (150-450); RED BLOOD COUNT 3.45 M/UL (4.70-6.10); RED CELL DISTRIBUTION WIDTH 14.3 % (11.6-14.8); WHITE BLOOD COUNT 4.6 K/UL (4.8-10.8)
[2018-05-22 05:00] LABS: INR 1.1 (0.9-1.1)
[2018-05-22 05:05] LABS: ALANINE AMINOTRANSFERASE 69 U/L (12-78); ALBUMIN/GLOBULIN RATIO 0.6 (1.0-2.7); ALKALINE PHOSPHATASE 45 U/L (46-116); ANION GAP 4 mmol/L (5-15); ASPARTATE AMINO TRANSFERASE 65 U/L (15-37); BILIRUBIN,TOTAL 0.4 MG/DL (0.2-1.0); BLOOD UREA NITROGEN 4 mg/dL (7-18); CALCIUM 8.3 MG/DL (8.5-10.1); CARBON DIOXIDE 28 MMOL/L (21-32); CHLORIDE 106 MMOL/L (98-107); CREATININE 0.5 MG/DL (0.55-1.30); POTASSIUM 3.9 MMOL/L (3.5-5.1); SODIUM 138 MMOL/L (136-145)
[2018-05-22] MEDS ORDERED: Heparin 5000 units/ml inj IV SCH (06:00)
[2018-05-22] MEDS: Heparin 25,000u/D5W 500ml 500 ML IV SCH ×2 (06:13→11:44)
[2018-05-22] MEDS: NovoLOG Insulin Flexpen SUBQ SCH ×4 (06:30→21:00)
[2018-05-22] MEDS: D5 1/2NS w/KCl 40meq 1000ml 1,000 ML IV SCH (07:41)
[2018-05-22 08:00] VITALS: BP 166/89
[2018-05-22] MEDS: Vitamin D 400 INTLU TAB ORAL SCH (09:34)
[2018-05-22] MEDS: cefTRIAXone 1 GM in D5W 55 ML IVPB SCH ×2 (09:34→21:24)
[2018-05-22] MEDS: Tamsulosin 0.4mg cap ORAL SCH ×2 (09:35→18:09)
[2018-05-22] MEDS: Magnesium Chloride w/Calcium Tab ORAL SCH (09:35)
[2018-05-22 12:00] VITALS: BP 154/81
--- NOTE | 2018-05-22 12:54 | Nephrology Progress Note ---
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 dysmotility Plan hydration better, hematuria cleared, small amount hemoptysis, on heparin for PE, holding for egd, 1gram proteinuria may be from uti or dm nephropathy but does not expalin edema, likely nutritional Subjective Constitutional: Reports: weakness HEENT: Reports: no symptoms Genitourinary: Reports: incontinence Neurologic/Psychiatric: Reports: pre-existing deficit Objective Objective Last 24 Hour Vital Signs Date Time Temp Pulse Resp B/P (MAP) Pulse Ox O2 Delivery O2 Flow Rate FiO2 05/22/18 09:00 Room Air 05/22/18 08:00 98.0 69 20 166/89 (114) 100 05/22/18 07:17 68 05/22/18 04:00 98.5 70 19 155/83 (107) 97 05/22/18 04:00 73 05/22/18 00:00 98.7 65 18 157/72 (100) 95 05/22/18 00:00 65 05/21/18 21:00 Room Air 05/21/18 20:00 98.3 72 19 166/86 (112) 98 05/21/18 20:00 69 05/21/18 16:00 72 05/21/18 16:00 98.6 70 16 125/84 (98) 95 05/21/18 14:00 97.8 74 16 164/88 97 Room Air 05/21/18 13:50 72 14 157/91 96 Room Air 05/21/18 13:45 75 23 98 05/21/18 13:43 73 22 96 05/21/18 13:40 79 16 152/83 96 Room Air 05/21/18 13:35 80 15 141/80 99 Room Air 05/21/18 13:30 97.5 75 19 141/78 99 Simple Mask 6 Intake and Output 05/21/18 05/22/18 19:00 07:00 Intake Total 1223.140 ml 261.954 ml Output Total 1000 ml 700 ml Balance 223.140 ml -438.046 ml IV Total 1223.140 ml 261.954 ml Output Urine Total 1000 ml 700 ml # Voids 2 Laboratory Tests 05/22/18 04:15: White Blood Count 4.6L, Red Blood Count 3.45L, Hemoglobin 10.9L, Hematocrit 32.4L, Mean Corpuscular Volume 94, Mean Corpuscular Hemoglobin 31.7H, Mean Corpuscular Hemoglobin Concent 33.7, Red Cell Distribution Width 14.3, Platelet Count 168, Mean Platelet Volume 6.6, Neutrophils (%) (Auto) 47.2, Lymphocytes (% ) (Auto) 29.5, Monocytes (%) (Auto) 15.1H, Eosinophils (%) (Auto) 4.7H, Basophils (%) (Auto) 3.5H, Prothrombin Time 11.9H, Prothromb Time International Ratio 1.1, Activated Partial Thromboplast Time 53H, Sodium Level 138, Potassium Level 3.9, Chloride Level 106, Carbon Dioxide Level 28, Anion Gap 4L, Blood Urea Nitrogen 4L, Creatinine 0.5L, Estimat Glomerular Filtration Rate , Glucose Level 150#H, Calcium Level 8.3L, Total Bilirubin 0.4, Aspartate Amino Transf ( AST/SGOT) 65H, Alanine Aminotransferase (ALT/SGPT) 69, Alkaline Phosphatase 45L , Total Protein 5.1L, Albumin 2.0L, Globulin 3.1, Albumin/Globulin Ratio 0.6L 05/22/18 12:05: Activated Partial Thromboplast Time [Pending] Height (Feet): 5 Height (Inches): 10.00 Weight (Pounds): 175 General Appearance: no apparent distress, alert EENT: normal ENT inspection Neck: supple Cardiovascular: normal rate Respiratory/Chest: lungs clear Abdomen: non tender, soft Extremities: moderate edema Milo Guillaume MD May 22, 2018 12:54
--- NOTE | 2018-05-22 13:16 | GI Progress Note ---
Assessment/Plan Problems: (1) Dysphasia ICD Codes: R47.02 - Dysphasia SNOMED: 21496661 (2) Severe malnutrition ICD Codes: E43 - Unspecified severe protein-calorie malnutrition SNOMED: 49943783 (3) Esophageal dysmotility ICD Codes: K22.4 - Dyskinesia of esophagus SNOMED: 275055287 (4) Anemia ICD Codes: D64.9 - Anemia, unspecified SNOMED: 607084871 Status: unchanged Status Narrative Discussed with Dr. Jessica Assessment/Plan SUMMARY OF FINDINGS: 1. We could not get the scope in the duodenum. 2. No evidence of any esophageal stricture or narrowing. 3. 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 4. Gastritis, but given the patient on heparin, we did not biopsy it. Speech therapy video swallow study reviewed. Patient is high risk for aspiration. PEG refused by patient, wishes to see his primary doctor at the [facility] RECOMMENDATIONS: Patient diet advanced to cardiac pure with strict aspiration precautions and one-to-one feeder, add calorie count for 48 hours PEG if patient agrees We will consider NGT insertion if nutritional needs are not met prn transfusion ppi fu labs Discussed with Dr. Jessica. Thank you for this patient referral, we will follow. The patient was seen and examined at bedside and all new and available data was reviewed in the patients chart. I agree with the above findings, impression and plan. (Patient seen earlier today. Signature stamp does not reflect patient encounter time.). - Froy Jessica MD Subjective Subjective Refused G-tube placement The patient dislikes pured diet Objective Last 24 Hour Vital Signs Date Time Temp Pulse Resp B/P (MAP) Pulse Ox O2 Delivery O2 Flow Rate FiO2 05/22/18 09:00 Room Air 05/22/18 08:00 98.0 69 20 166/89 (114) 100 05/22/18 07:17 68 05/22/18 04:00 98.5 70 19 155/83 (107) 97 05/22/18 04:00 73 05/22/18 00:00 98.7 65 18 157/72 (100) 95 05/22/18 00:00 65 05/21/18 21:00 Room Air 05/21/18 20:00 98.3 72 19 166/86 (112) 98 05/21/18 20:00 69 05/21/18 16:00 72 05/21/18 16:00 98.6 70 16 125/84 (98) 95 05/21/18 14:00 97.8 74 16 164/88 97 Room Air 05/21/18 13:50 72 14 157/91 96 Room Air 05/21/18 13:45 75 23 98 05/21/18 13:43 73 22 96 05/21/18 13:40 79 16 152/83 96 Room Air 05/21/18 13:35 80 15 141/80 99 Room Air 05/21/18 13:30 97.5 75 19 141/78 99 Simple Mask 6 Intake and Output 05/21/18 05/22/18 19:00 07:00 Intake Total 1223.140 ml 261.954 ml Output Total 1000 ml 700 ml Balance 223.140 ml -438.046 ml IV Total 1223.140 ml 261.954 ml Output Urine Total 1000 ml 700 ml # Voids 2 Laboratory Tests Test 05/22/18 04:15 05/22/18 12:05 White Blood Count 4.6 K/UL (4.8-10.8) L Red Blood Count 3.45 M/UL (4.70-6.10) L Hemoglobin 10.9 G/DL (14.2-18.0) L Hematocrit 32.4 % (42.0-52.0) L Mean Corpuscular Volume 94 FL (80-99) Mean Corpuscular Hemoglobin 31.7 PG (27.0-31.0) H Mean Corpuscular Hemoglobin Concent 33.7 G/DL (32.0-36.0) Red Cell Distribution Width 14.3 % (11.6-14.8) Platelet Count 168 K/UL (150-450) Mean Platelet Volume 6.6 FL (6.5-10.1) Neutrophils (%) (Auto) 47.2 % (45.0-75.0) Lymphocytes (%) (Auto) 29.5 % (20.0-45.0) Monocytes (%) (Auto) 15.1 % (1.0-10.0) H Eosinophils (%) (Auto) 4.7 % (0.0-3.0) H Basophils (%) (Auto) 3.5 % (0.0-2.0) H Prothrombin Time 11.9 SEC (9.30-11.50) H Prothromb Time International Ratio 1.1 (0.9-1.1) Activated Partial Thromboplast Time 53 SEC (23-33) H Pending Sodium Level 138 MMOL/L (136-145) Potassium Level 3.9 MMOL/L (3.5-5.1) Chloride Level 106 MMOL/L (98-107) Carbon Dioxide Level 28 MMOL/L (21-32) Anion Gap 4 mmol/L (5-15) L Blood Urea Nitrogen 4 mg/dL (7-18) L Creatinine 0.5 MG/DL (0.55-1.30) L Estimat Glomerular Filtration Rate mL/min (>60) Glucose Level 150 MG/DL (74-106) #H Calcium Level 8.3 MG/DL (8.5-10.1) L Total Bilirubin 0.4 MG/DL (0.2-1.0) Aspartate Amino Transf (AST/SGOT) 65 U/L (15-37) H Alanine Aminotransferase (ALT/SGPT) 69 U/L (12-78) Alkaline Phosphatase 45 U/L (46-116) L Total Protein 5.1 G/DL (6.4-8.2) L Albumin 2.0 G/DL (3.4-5.0) L Globulin 3.1 g/dL Albumin/Globulin Ratio 0.6 (1.0-2.7) L Height (Feet): 5 Height (Inches): 10.00 Weight (Pounds): 175 General Appearance: WD/WN, no apparent distress, alert Cardiovascular: normal rate Respiratory/Chest: normal breath sounds, no respiratory distress Abdominal Exam: normal bowel sounds, non tender, soft Extremities: non-tender Greg Harris NP May 22, 2018 13:16
--- NOTE | 2018-05-22 13:36 | Pulmonology Progress Note ---
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) (4) Pulmonary embolism (5) Urinary tract infection-culture pending (6) CHF (7) Bilateral leg edema (8) Esophageal dysmotility, possible stricture (9) traumatic NGt placement with bleeding Assessment/Plan off Heparin gtt start Xarelto refuses PEG no stricture found possible SNF in AM Subjective Constitutional: Reports: fatigue HEENT: Repors: dysphagia Allergies: Coded Allergies: HYDRALAZINE (Unverified Allergy, Unknown, Rash, 05/14/15) METFORMIN (Unverified Allergy, Unknown, NAUSEA ONLY, 05/14/15) Objective Last 24 Hour Vital Signs Date Time Temp Pulse Resp B/P (MAP) Pulse Ox O2 Delivery O2 Flow Rate FiO2 05/22/18 09:00 Room Air 05/22/18 08:00 98.0 69 20 166/89 (114) 100 05/22/18 07:17 68 05/22/18 04:00 98.5 70 19 155/83 (107) 97 05/22/18 04:00 73 05/22/18 00:00 98.7 65 18 157/72 (100) 95 05/22/18 00:00 65 05/21/18 21:00 Room Air 05/21/18 20:00 98.3 72 19 166/86 (112) 98 05/21/18 20:00 69 05/21/18 16:00 72 05/21/18 16:00 98.6 70 16 125/84 (98) 95 05/21/18 14:00 97.8 74 16 164/88 97 Room Air 05/21/18 13:50 72 14 157/91 96 Room Air 05/21/18 13:45 75 23 98 05/21/18 13:43 73 22 96 05/21/18 13:40 79 16 152/83 96 Room Air Intake and Output 05/21/18 05/22/18 19:00 07:00 Intake Total 1223.140 ml 261.954 ml Output Total 1000 ml 700 ml Balance 223.140 ml -438.046 ml IV Total 1223.140 ml 261.954 ml Output Urine Total 1000 ml 700 ml # Voids 2 General Appearance: no acute distress Respiratory/Chest: lungs clear Cardiovascular: normal rate Laboratory Tests 05/22/18 04:15: White Blood Count 4.6L, Red Blood Count 3.45L, Hemoglobin 10.9L, Hematocrit 32.4L, Mean Corpuscular Volume 94, Mean Corpuscular Hemoglobin 31.7H, Mean Corpuscular Hemoglobin Concent 33.7, Red Cell Distribution Width 14.3, Platelet Count 168, Mean Platelet Volume 6.6, Neutrophils (%) (Auto) 47.2, Lymphocytes (% ) (Auto) 29.5, Monocytes (%) (Auto) 15.1H, Eosinophils (%) (Auto) 4.7H, Basophils (%) (Auto) 3.5H, Prothrombin Time 11.9H, Prothromb Time International Ratio 1.1, Activated Partial Thromboplast Time 53H, Sodium Level 138, Potassium Level 3.9, Chloride Level 106, Carbon Dioxide Level 28, Anion Gap 4L, Blood Urea Nitrogen 4L, Creatinine 0.5L, Estimat Glomerular Filtration Rate , Glucose Level 150#H, Calcium Level 8.3L, Total Bilirubin 0.4, Aspartate Amino Transf ( AST/SGOT) 65H, Alanine Aminotransferase (ALT/SGPT) 69, Alkaline Phosphatase 45L , Total Protein 5.1L, Albumin 2.0L, Globulin 3.1, Albumin/Globulin Ratio 0.6L 05/22/18 12:05: Activated Partial Thromboplast Time 147H Current Medications Medications (Trade) Dose Ordered Sig/Myrtle Route PRN Reason Start Time Stop Time Status Last Admin Dose Admin Acetaminophen (Tylenol) 650 mg Q4H PRN ORAL Mild Pain/Temp > 100.5 05/17/18 23:00 06/16/18 22:59 Acetaminophen/ Hydrocodone Bitart ([place] 10/325) 1 tab Q4H PRN ORAL Severe Pain (Pain Scale 7-10) 05/17/18 23:00 05/24/18 22:59 Acetaminophen/ Hydrocodone Bitart ([place] 5/325) 1 tab Q4H PRN ORAL Moderate Pain (Pain Scale 4-6) 05/17/18 23:00 05/24/18 22:59 Atorvastatin Calcium (Lipitor) 20 mg BEDTIME ORAL 05/18/18 21:00 06/17/18 20:59 05/21/18 21:59 Ceftriaxone Sodium 1 gm/ Dextrose 55 ml @ 110 mls/hr Q12HR IVPB 05/18/18 09:00 05/25/18 08:59 05/22/18 09:34 Dextrose (Dextrose 50%) 50 ml Q30M PRN IV Hypoglycemia 05/17/18 23:00 06/16/18 22:59 Diphenhydramine HCl (Benadryl) 25 mg Q6H PRN ORAL Itching 05/17/18 23:00 06/16/18 22:59 Enalaprilat (Vasotec) 0.625 mg Q6H PRN IV PRN SBP>160 05/21/18 18:30 06/20/18 18:29 Finasteride (Proscar) 5 mg DAILY ORAL 05/19/18 11:38 06/18/18 11:37 05/22/18 09:34 Heparin Sodium/ Dextrose 500 ml @ 22.226 mls/ hr ADJUST PER PROTOCOL IV 05/22/18 14:30 06/21/18 14:29 Insulin Aspart (NovoLOG) BEFORE MEALS AND HS SUBQ 05/18/18 06:30 06/17/18 06:29 05/22/18 12:46 Magnesium Chloride (Slow-Mag) 1 tab DAILY ORAL 05/18/18 09:00 06/17/18 08:59 05/22/18 09:35 Ondansetron HCl (Zofran) 4 mg Q6H PRN IVP Nausea & Vomiting 05/17/18 23:00 06/16/18 22:59 Tamsulosin HCl (Flomax) 0.4 mg BID ORAL 05/19/18 18:00 06/18/18 17:59 05/22/18 09:35 Vitamin D (Vitamin D) 1,000 intlu DAILY ORAL 05/18/18 09:00 06/17/18 08:59 05/22/18 09:34 Alden Roberto MD May 22, 2018 13:36
[2018-05-22] MEDS: Xarelto 15mg tab ORAL SCH ×2 (13:54→18:09)
[2018-05-22] MEDS ORDERED: Heparin 25,000u/D5W 500ml 500 ML IV SCH (14:30)
[2018-05-22 16:00] VITALS: BP 166/89
[2018-05-22 20:00] VITALS: BP 146/83
[2018-05-22] MEDS: Atorvastatin 20mg tab ORAL SCH (21:00)
--- NOTE | 2018-05-22 23:58 | Cardiology Progress Note ---
Assessment/Plan Assessment/Plan 1. Bilateral lower extremity edema. 2D echocardiography does not does not support LV systolic or diastolic dysfunction. The Possibilities are hypoalbuminemia or lymphedema, consider compression stockings on both lower extremity, pressure about 25 to 30 mmHg. DVT is ruled out by obtaining lower extremity venous duplex. 2. Pulmonary embolism, continue Xarelto. 3. History of hypertension, increase lisinopril to bid dose. 4. History of diabetes mellitus, continue atorvastatin. Subjective Subjective Sinus rhythm at rate of 77. Objective Last 24 Hour Vital Signs Date Time Temp Pulse Resp B/P (MAP) Pulse Ox O2 Delivery O2 Flow Rate FiO2 05/22/18 20:00 100.4 75 20 146/83 (104) 96 05/22/18 16:16 77 05/22/18 16:00 98.0 69 20 166/89 (114) 100 05/22/18 12:00 98.3 74 20 154/81 (105) 100 05/22/18 11:36 81 05/22/18 09:00 Room Air 05/22/18 08:00 98.0 69 20 166/89 (114) 100 05/22/18 07:17 68 05/22/18 04:00 98.5 70 19 155/83 (107) 97 05/22/18 04:00 73 05/22/18 00:00 98.7 65 18 157/72 (100) 95 05/22/18 00:00 65 Intake and Output 05/21/18 05/22/18 18:59 06:59 Intake Total 1321.954 ml 261.954 ml Output Total 1000 ml 700 ml Balance 321.954 ml -438.046 ml IV Total 1321.954 ml 261.954 ml Output Urine Total 1000 ml 700 ml # Voids 2 2D Echo: LVEF 55%, Grade I LVDD, no e/o RV strain, poor quality images Laboratory Tests Test 05/22/18 04:15 05/22/18 12:05 White Blood Count 4.6 K/UL (4.8-10.8) L Red Blood Count 3.45 M/UL (4.70-6.10) L Hemoglobin 10.9 G/DL (14.2-18.0) L Hematocrit 32.4 % (42.0-52.0) L Mean Corpuscular Volume 94 FL (80-99) Mean Corpuscular Hemoglobin 31.7 PG (27.0-31.0) H Mean Corpuscular Hemoglobin Concent 33.7 G/DL (32.0-36.0) Red Cell Distribution Width 14.3 % (11.6-14.8) Platelet Count 168 K/UL (150-450) Mean Platelet Volume 6.6 FL (6.5-10.1) Neutrophils (%) (Auto) 47.2 % (45.0-75.0) Lymphocytes (%) (Auto) 29.5 % (20.0-45.0) Monocytes (%) (Auto) 15.1 % (1.0-10.0) H Eosinophils (%) (Auto) 4.7 % (0.0-3.0) H Basophils (%) (Auto) 3.5 % (0.0-2.0) H Prothrombin Time 11.9 SEC (9.30-11.50) H Prothromb Time International Ratio 1.1 (0.9-1.1) Activated Partial Thromboplast Time 53 SEC (23-33) H 147 SEC (23-33) H Sodium Level 138 MMOL/L (136-145) Potassium Level 3.9 MMOL/L (3.5-5.1) Chloride Level 106 MMOL/L (98-107) Carbon Dioxide Level 28 MMOL/L (21-32) Anion Gap 4 mmol/L (5-15) L Blood Urea Nitrogen 4 mg/dL (7-18) L Creatinine 0.5 MG/DL (0.55-1.30) L Estimat Glomerular Filtration Rate mL/min (>60) Glucose Level 150 MG/DL (74-106) #H Calcium Level 8.3 MG/DL (8.5-10.1) L Total Bilirubin 0.4 MG/DL (0.2-1.0) Aspartate Amino Transf (AST/SGOT) 65 U/L (15-37) H Alanine Aminotransferase (ALT/SGPT) 69 U/L (12-78) Alkaline Phosphatase 45 U/L (46-116) L Total Protein 5.1 G/DL (6.4-8.2) L Albumin 2.0 G/DL (3.4-5.0) L Globulin 3.1 g/dL Albumin/Globulin Ratio 0.6 (1.0-2.7) L Objective HEENT: Atraumatic and normocephalic. Anicteric. Pupils are equal, round, and reactive to light and accommodation. Extraocular muscles intact. NECK: JVP is flat close to 0 mmHg. No carotid bruit. Carotid upstroke is 2+ bilaterally. CARDIOVASCULAR: Normal S1, S2. Regular rate and rhythm. No murmurs, gallops, or rubs. PMI is at fourth intercostal space in the midclavicular line. LUNGS: Clear to auscultation bilaterally. ABDOMEN: Soft, nontender, and nondistended. No hepatosplenomegaly. Positive bowel sounds. EXTREMITIES: There is 3 to 4+ edema, squaring of the toes, and excoriations throughout both legs. Anthony Vazquez MD May 22, 2018 23:58
[2018-05-23] VITALS: BP 162/92
[2018-05-23 04:00] VITALS: BP 155/80
[2018-05-23] MEDS: NovoLOG Insulin Flexpen SUBQ SCH ×4 (06:30→20:46)
[2018-05-23 07:25] LABS: BASOPHILS % (AUTO) 1.2 % (0.0-2.0); EOSINOPHILS % (AUTO) 3.4 % (0.0-3.0); HEMATOCRIT 35.6 % (42.0-52.0); HEMOGLOBIN 11.9 G/DL (14.2-18.0); LYMPHOCYTES % (AUTO) 42.7 % (20.0-45.0); MEAN CORPUSCULAR VOLUME 93 FL (80-99); MONOCYTES % (AUTO) 10.5 % (1.0-10.0); NEUTROPHILS % (AUTO) 42.3 % (45.0-75.0); PLATELET COUNT 171 K/UL (150-450); RED BLOOD COUNT 3.82 M/UL (4.70-6.10); RED CELL DISTRIBUTION WIDTH 14.6 % (11.6-14.8); WHITE BLOOD COUNT 4.9 K/UL (4.8-10.8)
[2018-05-23 07:31] LABS: ANION GAP 5 mmol/L (5-15); BLOOD UREA NITROGEN 3 mg/dL (7-18); CALCIUM 7.9 MG/DL (8.5-10.1); CARBON DIOXIDE 30 MMOL/L (21-32); CHLORIDE 105 MMOL/L (98-107); CREATININE 0.6 MG/DL (0.55-1.30); POTASSIUM 3.7 MMOL/L (3.5-5.1); SODIUM 140 MMOL/L (136-145)
[2018-05-23 08:00] VITALS: BP 152/86
[2018-05-23] MEDS: cefTRIAXone 1 GM in D5W 55 ML IVPB SCH ×2 (09:54→20:41)
[2018-05-23] MEDS: Xarelto 15mg tab ORAL SCH ×2 (09:54→18:00)
[2018-05-23] MEDS: Tamsulosin 0.4mg cap ORAL SCH ×2 (09:55→18:00)
[2018-05-23] MEDS: Magnesium Chloride w/Calcium Tab ORAL SCH (09:55)
[2018-05-23] MEDS: Vitamin D 400 INTLU TAB ORAL SCH (09:55)
--- NOTE | 2018-05-23 10:44 | Pulmonology Progress Note ---
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) (4) Pulmonary embolism (5) Urinary tract infection-culture pending (6) CHF (7) Bilateral leg edema (8) Esophageal dysmotility, possible stricture (9) traumatic NGt placement with bleeding Assessment/Plan continue Xarelto refuses PEG or NGT no stricture found ready for dc to snf Subjective Constitutional: Reports: no symptoms Respiratory: Reports: no symptoms Cardiovascular: Reports: no symptoms Allergies: Coded Allergies: HYDRALAZINE (Unverified Allergy, Unknown, Rash, 05/14/15) METFORMIN (Unverified Allergy, Unknown, NAUSEA ONLY, 05/14/15) Objective Last 24 Hour Vital Signs Date Time Temp Pulse Resp B/P (MAP) Pulse Ox O2 Delivery O2 Flow Rate FiO2 05/23/18 08:08 Room Air 05/23/18 08:00 98.5 82 20 152/86 (108) 96 05/23/18 07:58 73 05/23/18 04:00 77 05/23/18 04:00 97.0 76 20 155/80 (105) 97 05/23/18 00:00 71 05/23/18 00:00 98.0 75 20 162/92 (115) 97 05/22/18 21:00 Room Air 05/22/18 20:00 100.4 75 20 146/83 (104) 96 05/22/18 20:00 75 05/22/18 16:16 77 05/22/18 16:00 98.0 69 20 166/89 (114) 100 05/22/18 12:00 98.3 74 20 154/81 (105) 100 05/22/18 11:36 81 Intake and Output 05/22/18 05/23/18 19:00 07:00 Intake Total 26.989 ml Output Total 1000 ml 1000 ml Balance -973.011 ml -1000 ml IV Total 26.989 ml Output Urine Total 1000 ml 1000 ml # Bowel Movements 1 General Appearance: WD/WN, no acute distress Respiratory/Chest: lungs clear Cardiovascular: normal rate Laboratory Tests 05/22/18 12:05: Activated Partial Thromboplast Time 147H 05/23/18 06:06: White Blood Count 4.9, Red Blood Count 3.82L, Hemoglobin 11.9L, Hematocrit 35.6L , Mean Corpuscular Volume 93, Mean Corpuscular Hemoglobin 31.2H, Mean Corpuscular Hemoglobin Concent 33.5, Red Cell Distribution Width 14.6, Platelet Count 171, Mean Platelet Volume 5.6L, Neutrophils (%) (Auto) 42.3L, Lymphocytes (%) (Auto) 42.7, Monocytes (%) (Auto) 10.5H, Eosinophils (%) (Auto) 3.4H, Basophils (%) (Auto) 1.2, Sodium Level 140, Potassium Level 3.7, Chloride Level 105, Carbon Dioxide Level 30, Anion Gap 5, Blood Urea Nitrogen 3L, Creatinine 0.6, Estimat Glomerular Filtration Rate , Glucose Level 90, Calcium Level 7.9L Current Medications Medications (Trade) Dose Ordered Sig/Myrtle Route PRN Reason Start Time Stop Time Status Last Admin Dose Admin Acetaminophen (Tylenol) 650 mg Q4H PRN ORAL Mild Pain/Temp > 100.5 05/17/18 23:00 06/16/18 22:59 Acetaminophen/ Hydrocodone Bitart ([place] 5/325) 1 tab Q4H PRN ORAL Moderate Pain (Pain Scale 4-6) 05/17/18 23:00 05/24/18 22:59 Atorvastatin Calcium (Lipitor) 20 mg BEDTIME ORAL 05/18/18 21:00 06/17/18 20:59 05/21/18 21:59 Ceftriaxone Sodium 1 gm/ Dextrose 55 ml @ 110 mls/hr Q12HR IVPB 05/18/18 09:00 05/25/18 08:59 05/23/18 09:54 Dextrose (Dextrose 50%) 50 ml Q30M PRN IV Hypoglycemia 05/17/18 23:00 06/16/18 22:59 Diphenhydramine HCl (Benadryl) 25 mg Q6H PRN ORAL Itching 05/17/18 23:00 06/16/18 22:59 Finasteride (Proscar) 5 mg DAILY ORAL 05/19/18 11:38 06/18/18 11:37 05/23/18 09:54 Insulin Aspart (NovoLOG) BEFORE MEALS AND HS SUBQ 05/18/18 06:30 06/17/18 06:29 05/22/18 18:08 Magnesium Chloride (Slow-Mag) 1 tab DAILY ORAL 05/18/18 09:00 06/17/18 08:59 05/23/18 09:55 Ondansetron HCl (Zofran) 4 mg Q6H PRN IVP Nausea & Vomiting 05/17/18 23:00 06/16/18 22:59 Rivaroxaban (Xarelto) 15 mg BID ORAL 05/22/18 13:30 06/11/18 18:01 05/23/18 09:54 Rivaroxaban (Xarelto) 20 mg DAILY ORAL 06/12/18 09:00 07/12/18 08:59 Tamsulosin HCl (Flomax) 0.4 mg BID ORAL 05/19/18 18:00 06/18/18 17:59 05/23/18 09:55 Vitamin D (Vitamin D) 1,000 intlu DAILY ORAL 05/18/18 09:00 06/17/18 08:59 05/23/18 09:55 Alden Roberto MD May 23, 2018 10:44
[2018-05-23 12:00] VITALS: BP 129/80
--- NOTE | 2018-05-23 12:51 | GI Progress Note ---
Assessment/Plan Problems: (1) Dysphasia ICD Codes: R47.02 - Dysphasia SNOMED: 98439256 (2) Severe malnutrition ICD Codes: E43 - Unspecified severe protein-calorie malnutrition SNOMED: 00873787 (3) Esophageal dysmotility ICD Codes: K22.4 - Dyskinesia of esophagus SNOMED: 869995326 (4) Anemia ICD Codes: D64.9 - Anemia, unspecified SNOMED: 737095609 Status: stable Status Narrative Discussed with Dr. Jessica. Assessment/Plan SUMMARY OF FINDINGS: 1. We could not get the scope in the duodenum. 2. No evidence of any esophageal stricture or narrowing. 3. 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 4. Gastritis, but given the patient on heparin, we did not biopsy it. Speech therapy video swallow study reviewed. Patient is high risk for aspiration. PEG refused by patient, wishes to see his primary doctor at the [place] hospital RECOMMENDATIONS: Patient diet advanced to cardiac pure with strict aspiration precautions and one-to-one feeder, add calorie count for 48 hours. NGT and PEG if family agrees prn transfusion ppi fu labs dc planning The patient was seen and examined at bedside and all new and available data was reviewed in the patients chart. I agree with the above findings, impression and plan. (Patient seen earlier today. Signature stamp does not reflect patient encounter time.). - Froy Jessica MD Subjective Subjective Refused G-tube placement refused NGT wants to be transferred to OR Objective Last 24 Hour Vital Signs Date Time Temp Pulse Resp B/P (MAP) Pulse Ox O2 Delivery O2 Flow Rate FiO2 05/23/18 08:08 Room Air 05/23/18 08:00 98.5 82 20 152/86 (108) 96 05/23/18 07:58 73 05/23/18 04:00 77 05/23/18 04:00 97.0 76 20 155/80 (105) 97 05/23/18 00:00 71 05/23/18 00:00 98.0 75 20 162/92 (115) 97 05/22/18 21:00 Room Air 05/22/18 20:00 100.4 75 20 146/83 (104) 96 05/22/18 20:00 75 05/22/18 16:16 77 05/22/18 16:00 98.0 69 20 166/89 (114) 100 Intake and Output 05/22/18 05/23/18 19:00 07:00 Intake Total 26.989 ml Output Total 1000 ml 1000 ml Balance -973.011 ml -1000 ml IV Total 26.989 ml Output Urine Total 1000 ml 1000 ml # Bowel Movements 1 Laboratory Tests Test 05/23/18 06:06 White Blood Count 4.9 K/UL (4.8-10.8) Red Blood Count 3.82 M/UL (4.70-6.10) L Hemoglobin 11.9 G/DL (14.2-18.0) L Hematocrit 35.6 % (42.0-52.0) L Mean Corpuscular Volume 93 FL (80-99) Mean Corpuscular Hemoglobin 31.2 PG (27.0-31.0) H Mean Corpuscular Hemoglobin Concent 33.5 G/DL (32.0-36.0) Red Cell Distribution Width 14.6 % (11.6-14.8) Platelet Count 171 K/UL (150-450) Mean Platelet Volume 5.6 FL (6.5-10.1) L Neutrophils (%) (Auto) 42.3 % (45.0-75.0) L Lymphocytes (%) (Auto) 42.7 % (20.0-45.0) Monocytes (%) (Auto) 10.5 % (1.0-10.0) H Eosinophils (%) (Auto) 3.4 % (0.0-3.0) H Basophils (%) (Auto) 1.2 % (0.0-2.0) Sodium Level 140 MMOL/L (136-145) Potassium Level 3.7 MMOL/L (3.5-5.1) Chloride Level 105 MMOL/L (98-107) Carbon Dioxide Level 30 MMOL/L (21-32) Anion Gap 5 mmol/L (5-15) Blood Urea Nitrogen 3 mg/dL (7-18) L Creatinine 0.6 MG/DL (0.55-1.30) Estimat Glomerular Filtration Rate mL/min (>60) Glucose Level 90 MG/DL (74-106) Calcium Level 7.9 MG/DL (8.5-10.1) L Height (Feet): 5 Height (Inches): 10.00 Weight (Pounds): 174 General Appearance: WD/WN, no apparent distress, alert Cardiovascular: normal rate Respiratory/Chest: normal breath sounds, no respiratory distress Abdominal Exam: normal bowel sounds, non tender, soft Extremities: non-tender Greg Harris NP May 23, 2018 12:51
--- NOTE | 2018-05-23 13:34 | Nephrology Progress Note ---
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 dysmotility Plan hydration better, hematuria cleared, small amount hemoptysis, on xarelto for PE, 1gram proteinuria may be from uti or dm nephropathy but does not expalin edema, likely nutritional keep turcios for urinary retention, voiding trial as outpatient Subjective Constitutional: Reports: weakness HEENT: Reports: no symptoms Genitourinary: Reports: incontinence Neurologic/Psychiatric: Reports: pre-existing deficit Objective Objective Last 24 Hour Vital Signs Date Time Temp Pulse Resp B/P (MAP) Pulse Ox O2 Delivery O2 Flow Rate FiO2 05/23/18 12:00 98.4 80 19 129/80 (96) 96 05/23/18 08:08 Room Air 05/23/18 08:00 98.5 82 20 152/86 (108) 96 05/23/18 07:58 73 05/23/18 04:00 77 05/23/18 04:00 97.0 76 20 155/80 (105) 97 05/23/18 00:00 71 05/23/18 00:00 98.0 75 20 162/92 (115) 97 05/22/18 21:00 Room Air 05/22/18 20:00 100.4 75 20 146/83 (104) 96 05/22/18 20:00 75 05/22/18 16:16 77 05/22/18 16:00 98.0 69 20 166/89 (114) 100 Intake and Output 05/22/18 05/23/18 19:00 07:00 Intake Total 26.989 ml Output Total 1000 ml 1000 ml Balance -973.011 ml -1000 ml IV Total 26.989 ml Output Urine Total 1000 ml 1000 ml # Bowel Movements 1 Laboratory Tests 05/23/18 06:06: White Blood Count 4.9, Red Blood Count 3.82L, Hemoglobin 11.9L, Hematocrit 35.6L , Mean Corpuscular Volume 93, Mean Corpuscular Hemoglobin 31.2H, Mean Corpuscular Hemoglobin Concent 33.5, Red Cell Distribution Width 14.6, Platelet Count 171, Mean Platelet Volume 5.6L, Neutrophils (%) (Auto) 42.3L, Lymphocytes (%) (Auto) 42.7, Monocytes (%) (Auto) 10.5H, Eosinophils (%) (Auto) 3.4H, Basophils (%) (Auto) 1.2, Sodium Level 140, Potassium Level 3.7, Chloride Level 105, Carbon Dioxide Level 30, Anion Gap 5, Blood Urea Nitrogen 3L, Creatinine 0.6, Estimat Glomerular Filtration Rate , Glucose Level 90, Calcium Level 7.9L Height (Feet): 5 Height (Inches): 10.00 Weight (Pounds): 174 General Appearance: WD/WN EENT: normal ENT inspection Neck: normal alignment Cardiovascular: normal rate Respiratory/Chest: lungs clear, normal breath sounds Abdomen: soft, no organomegaly Extremities: moderate edema Milo Guillaume MD May 23, 2018 13:34
[2018-05-23 15:55] VITALS: BP 157/86
[2018-05-23 20:00] VITALS: BP 153/83
[2018-05-23] MEDS: Atorvastatin 20mg tab ORAL SCH (20:41)
--- NOTE | 2018-05-23 22:46 | Cardiology Progress Note ---
Assessment/Plan Assessment/Plan 1. Bilateral lower extremity edema. 2D echocardiography does not does not support LV systolic or diastolic dysfunction. The Possibilities are hypoalbuminemia or lymphedema, consider compression stockings on both lower extremity, pressure about 25 to 30 mmHg. DVT is ruled out by obtaining lower extremity venous duplex. 2. Pulmonary embolism, continue Xarelto. 3. History of hypertension, continue lisinopril, may have to add a diuretic. 4. History of diabetes mellitus, continue atorvastatin. Subjective Subjective Sinus rhythm at rate of 71. Objective Last 24 Hour Vital Signs Date Time Temp Pulse Resp B/P (MAP) Pulse Ox O2 Delivery O2 Flow Rate FiO2 05/23/18 15:55 97.3 76 19 157/86 (109) 97 05/23/18 15:14 71 05/23/18 12:00 98.4 80 19 129/80 (96) 96 05/23/18 11:35 83 05/23/18 08:08 Room Air 05/23/18 08:00 98.5 82 20 152/86 (108) 96 05/23/18 07:58 73 05/23/18 04:00 77 05/23/18 04:00 97.0 76 20 155/80 (105) 97 05/23/18 00:00 71 05/23/18 00:00 98.0 75 20 162/92 (115) 97 Intake and Output 05/22/18 05/23/18 18:59 06:59 Intake Total 26.989 ml Output Total 1000 ml 1000 ml Balance -973.011 ml -1000 ml IV Total 26.989 ml Output Urine Total 1000 ml 1000 ml # Bowel Movements 1 2D Echo: LVEF 55%, Grade I LVDD, no e/o RV strain, poor quality images Laboratory Tests Test 05/23/18 06:06 White Blood Count 4.9 K/UL (4.8-10.8) Red Blood Count 3.82 M/UL (4.70-6.10) L Hemoglobin 11.9 G/DL (14.2-18.0) L Hematocrit 35.6 % (42.0-52.0) L Mean Corpuscular Volume 93 FL (80-99) Mean Corpuscular Hemoglobin 31.2 PG (27.0-31.0) H Mean Corpuscular Hemoglobin Concent 33.5 G/DL (32.0-36.0) Red Cell Distribution Width 14.6 % (11.6-14.8) Platelet Count 171 K/UL (150-450) Mean Platelet Volume 5.6 FL (6.5-10.1) L Neutrophils (%) (Auto) 42.3 % (45.0-75.0) L Lymphocytes (%) (Auto) 42.7 % (20.0-45.0) Monocytes (%) (Auto) 10.5 % (1.0-10.0) H Eosinophils (%) (Auto) 3.4 % (0.0-3.0) H Basophils (%) (Auto) 1.2 % (0.0-2.0) Sodium Level 140 MMOL/L (136-145) Potassium Level 3.7 MMOL/L (3.5-5.1) Chloride Level 105 MMOL/L (98-107) Carbon Dioxide Level 30 MMOL/L (21-32) Anion Gap 5 mmol/L (5-15) Blood Urea Nitrogen 3 mg/dL (7-18) L Creatinine 0.6 MG/DL (0.55-1.30) Estimat Glomerular Filtration Rate mL/min (>60) Glucose Level 90 MG/DL (74-106) Calcium Level 7.9 MG/DL (8.5-10.1) L Objective HEENT: Atraumatic and normocephalic. Anicteric. Pupils are equal, round, and reactive to light and accommodation. Extraocular muscles intact. NECK: JVP is flat close to 0 mmHg. No carotid bruit. Carotid upstroke is 2+ bilaterally. CARDIOVASCULAR: Normal S1, S2. Regular rate and rhythm. No murmurs, gallops, or rubs. PMI is at fourth intercostal space in the midclavicular line. LUNGS: Clear to auscultation bilaterally. ABDOMEN: Soft, nontender, and nondistended. No hepatosplenomegaly. Positive bowel sounds. EXTREMITIES: There is 3 to 4+ edema, squaring of the toes, and excoriations throughout both legs. Anthony Vazquez MD May 23, 2018 22:46
[2018-05-24] VITALS: BP 158/76
[2018-05-24 04:00] VITALS: BP 167/82
[2018-05-24 05:06] LABS: BASOPHILS % (AUTO) 1.8 % (0.0-2.0); EOSINOPHILS % (AUTO) 3.4 % (0.0-3.0); HEMATOCRIT 37.2 % (42.0-52.0); HEMOGLOBIN 12.5 G/DL (14.2-18.0); LYMPHOCYTES % (AUTO) 49.7 % (20.0-45.0); MEAN CORPUSCULAR VOLUME 93 FL (80-99); MONOCYTES % (AUTO) 10.8 % (1.0-10.0); NEUTROPHILS % (AUTO) 34.2 % (45.0-75.0); PLATELET COUNT 199 K/UL (150-450); RED BLOOD COUNT 4.02 M/UL (4.70-6.10); RED CELL DISTRIBUTION WIDTH 14.5 % (11.6-14.8); WHITE BLOOD COUNT 5.5 K/UL (4.8-10.8)
[2018-05-24 05:20] LABS: ANION GAP 7 mmol/L (5-15); BLOOD UREA NITROGEN 6 mg/dL (7-18); CALCIUM 8.2 MG/DL (8.5-10.1); CARBON DIOXIDE 29 MMOL/L (21-32); CHLORIDE 105 MMOL/L (98-107); CREATININE 0.6 MG/DL (0.55-1.30); POTASSIUM 3.8 MMOL/L (3.5-5.1); SODIUM 141 MMOL/L (136-145)
[2018-05-24] MEDS: NovoLOG Insulin Flexpen SUBQ SCH ×4 (06:09→21:12)
--- NOTE | 2018-05-24 07:51 | Nephrology Progress Note ---
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 dysmotility Plan hydration better, hematuria cleared, small amount hemoptysis, on xarelto for PE, 1gram proteinuria may be from uti or dm nephropathy but does not expalin edema, likely nutritional keep turcios for urinary retention, voiding trial as outpatient Subjective Constitutional: Reports: weakness HEENT: Reports: no symptoms Genitourinary: Reports: incontinence Neurologic/Psychiatric: Reports: no symptoms Objective Objective Last 24 Hour Vital Signs Date Time Temp Pulse Resp B/P (MAP) Pulse Ox O2 Delivery O2 Flow Rate FiO2 05/24/18 04:00 98.1 75 20 167/82 (110) 98 05/24/18 04:00 70 05/24/18 00:00 98.2 72 20 158/76 (103) 98 05/24/18 00:00 71 05/23/18 21:00 Room Air 05/23/18 20:00 91 05/23/18 20:00 98.1 85 20 153/83 (106) 97 05/23/18 15:55 97.3 76 19 157/86 (109) 97 05/23/18 15:14 71 05/23/18 12:00 98.4 80 19 129/80 (96) 96 05/23/18 11:35 83 05/23/18 08:08 Room Air 05/23/18 08:00 98.5 82 20 152/86 (108) 96 05/23/18 07:58 73 Intake and Output 05/23/18 05/24/18 19:00 07:00 Intake Total 360 ml 120 ml Output Total 1400 ml 950 ml Balance -1040 ml -830 ml Intake Oral 360 ml 120 ml Output Urine Total 1400 ml 950 ml Laboratory Tests 05/24/18 04:50: White Blood Count 5.5, Red Blood Count 4.02L, Hemoglobin 12.5L, Hematocrit 37.2L , Mean Corpuscular Volume 93, Mean Corpuscular Hemoglobin 31.0, Mean Corpuscular Hemoglobin Concent 33.5, Red Cell Distribution Width 14.5, Platelet Count 199, Mean Platelet Volume 7.0, Neutrophils (%) (Auto) 34.2L, Lymphocytes ( %) (Auto) 49.7H, Monocytes (%) (Auto) 10.8H, Eosinophils (%) (Auto) 3.4H, Basophils (%) (Auto) 1.8, Sodium Level 141, Potassium Level 3.8, Chloride Level 105, Carbon Dioxide Level 29, Anion Gap 7, Blood Urea Nitrogen 6L, Creatinine 0.6, Estimat Glomerular Filtration Rate , Glucose Level 87, Calcium Level 8.2L Height (Feet): 5 Height (Inches): 10.00 Weight (Pounds): 232 General Appearance: no apparent distress, alert EENT: normal ENT inspection Neck: normal alignment Cardiovascular: normal rate Respiratory/Chest: lungs clear Abdomen: non tender, soft Extremities: moderate edema Neurologic: 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
[2018-05-24 08:00] VITALS: BP 161/84
[2018-05-24] MEDS: cefTRIAXone 1 GM in D5W 55 ML IVPB SCH ×2 (09:02→20:40)
[2018-05-24] MEDS: Vitamin D 400 INTLU TAB ORAL SCH (09:03)
[2018-05-24] MEDS: Xarelto 15mg tab ORAL SCH ×2 (09:03→17:45)
[2018-05-24] MEDS: Magnesium Chloride w/Calcium Tab ORAL SCH (09:03)
[2018-05-24] MEDS: Tamsulosin 0.4mg cap ORAL SCH ×2 (09:03→17:45)
--- NOTE | 2018-05-24 10:30 | GI Progress Note ---
Assessment/Plan Problems: (1) Dysphasia ICD Codes: R47.02 - Dysphasia SNOMED: 74519718 (2) Severe malnutrition ICD Codes: E43 - Unspecified severe protein-calorie malnutrition SNOMED: 45434004 (3) Esophageal dysmotility ICD Codes: K22.4 - Dyskinesia of esophagus SNOMED: 889793999 (4) Anemia ICD Codes: D64.9 - Anemia, unspecified SNOMED: 384705353 Status: stable, unchanged Status Narrative Discussed with Dr. Jessica Assessment/Plan SUMMARY OF FINDINGS: 1. We could not get the scope in the duodenum. 2. No evidence of any esophageal stricture or narrowing. 3. 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 4. Gastritis, but given the patient on heparin, we did not biopsy it. Speech therapy video swallow study reviewed. Patient is high risk for aspiration. PEG refused by patient, wishes to see [facility] primary doctor [facility] RECOMMENDATIONS: Patient diet advanced to cardiac pure with strict aspiration precautions and one-to-one feeder, add calorie count for 48 hours. NGT and PEG if family agrees prn transfusion ppi fu labs dc planning The patient was seen and examined at bedside and all new and available data was reviewed in the patients chart. I agree with the above findings, impression and plan. (Patient seen earlier today. Signature stamp does not reflect patient encounter time.). - Froy Jessica MD Subjective Subjective Refused G-tube placement refused NGT wants to be transferred to ID Objective Last 24 Hour Vital Signs Date Time Temp Pulse Resp B/P (MAP) Pulse Ox O2 Delivery O2 Flow Rate FiO2 05/24/18 08:00 74 05/24/18 08:00 98.0 79 17 161/84 (109) 97 05/24/18 04:00 98.1 75 20 167/82 (110) 98 05/24/18 04:00 70 05/24/18 00:00 98.2 72 20 158/76 (103) 98 05/24/18 00:00 71 05/23/18 21:00 Room Air 05/23/18 20:00 91 05/23/18 20:00 98.1 85 20 153/83 (106) 97 05/23/18 15:55 97.3 76 19 157/86 (109) 97 05/23/18 15:14 71 05/23/18 12:00 98.4 80 19 129/80 (96) 96 05/23/18 11:35 83 Intake and Output 05/23/18 05/24/18 19:00 07:00 Intake Total 360 ml 120 ml Output Total 1400 ml 950 ml Balance -1040 ml -830 ml Intake Oral 360 ml 120 ml Output Urine Total 1400 ml 950 ml Laboratory Tests Test 05/24/18 04:50 White Blood Count 5.5 K/UL (4.8-10.8) Red Blood Count 4.02 M/UL (4.70-6.10) L Hemoglobin 12.5 G/DL (14.2-18.0) L Hematocrit 37.2 % (42.0-52.0) L Mean Corpuscular Volume 93 FL (80-99) Mean Corpuscular Hemoglobin 31.0 PG (27.0-31.0) Mean Corpuscular Hemoglobin Concent 33.5 G/DL (32.0-36.0) Red Cell Distribution Width 14.5 % (11.6-14.8) Platelet Count 199 K/UL (150-450) Mean Platelet Volume 7.0 FL (6.5-10.1) Neutrophils (%) (Auto) 34.2 % (45.0-75.0) L Lymphocytes (%) (Auto) 49.7 % (20.0-45.0) H Monocytes (%) (Auto) 10.8 % (1.0-10.0) H Eosinophils (%) (Auto) 3.4 % (0.0-3.0) H Basophils (%) (Auto) 1.8 % (0.0-2.0) Sodium Level 141 MMOL/L (136-145) Potassium Level 3.8 MMOL/L (3.5-5.1) Chloride Level 105 MMOL/L (98-107) Carbon Dioxide Level 29 MMOL/L (21-32) Anion Gap 7 mmol/L (5-15) Blood Urea Nitrogen 6 mg/dL (7-18) L Creatinine 0.6 MG/DL (0.55-1.30) Estimat Glomerular Filtration Rate mL/min (>60) Glucose Level 87 MG/DL (74-106) Calcium Level 8.2 MG/DL (8.5-10.1) L Height (Feet): 5 Height (Inches): 10.00 Weight (Pounds): 232 General Appearance: WD/WN, no apparent distress, alert Cardiovascular: normal rate Respiratory/Chest: normal breath sounds, no respiratory distress Abdominal Exam: normal bowel sounds, non tender, soft Extremities: normal range of motion, non-tender Greg Harris NP May 24, 2018 10:30
[2018-05-24 12:00] VITALS: BP 162/99
--- NOTE | 2018-05-24 14:25 | Pulmonology Progress Note ---
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 Lisinopril ordered ready for dc to snf when bed available Subjective Constitutional: Reports: no symptoms HEENT: Repors: dysphagia Allergies: Coded Allergies: HYDRALAZINE (Unverified Allergy, Unknown, Rash, 05/14/15) METFORMIN (Unverified Allergy, Unknown, NAUSEA ONLY, 05/14/15) Objective Last 24 Hour Vital Signs Date Time Temp Pulse Resp B/P (MAP) Pulse Ox O2 Delivery O2 Flow Rate FiO2 05/24/18 12:00 98.8 82 21 162/99 (120) 99 05/24/18 12:00 79 05/24/18 09:00 Room Air 05/24/18 08:00 74 05/24/18 08:00 98.0 79 17 161/84 (109) 97 05/24/18 04:00 98.1 75 20 167/82 (110) 98 05/24/18 04:00 70 05/24/18 00:00 98.2 72 20 158/76 (103) 98 05/24/18 00:00 71 05/23/18 21:00 Room Air 05/23/18 20:00 91 05/23/18 20:00 98.1 85 20 153/83 (106) 97 05/23/18 15:55 97.3 76 19 157/86 (109) 97 05/23/18 15:14 71 Intake and Output 05/23/18 05/24/18 19:00 07:00 Intake Total 360 ml 120 ml Output Total 1400 ml 950 ml Balance -1040 ml -830 ml Intake Oral 360 ml 120 ml Output Urine Total 1400 ml 950 ml General Appearance: no acute distress, other - obese Respiratory/Chest: lungs clear Cardiovascular: normal rate Laboratory Tests 05/24/18 04:50: White Blood Count 5.5, Red Blood Count 4.02L, Hemoglobin 12.5L, Hematocrit 37.2L , Mean Corpuscular Volume 93, Mean Corpuscular Hemoglobin 31.0, Mean Corpuscular Hemoglobin Concent 33.5, Red Cell Distribution Width 14.5, Platelet Count 199, Mean Platelet Volume 7.0, Neutrophils (%) (Auto) 34.2L, Lymphocytes ( %) (Auto) 49.7H, Monocytes (%) (Auto) 10.8H, Eosinophils (%) (Auto) 3.4H, Basophils (%) (Auto) 1.8, Sodium Level 141, Potassium Level 3.8, Chloride Level 105, Carbon Dioxide Level 29, Anion Gap 7, Blood Urea Nitrogen 6L, Creatinine 0.6, Estimat Glomerular Filtration Rate , Glucose Level 87, Calcium Level 8.2L Current Medications Medications (Trade) Dose Ordered Sig/Myrtle Route PRN Reason Start Time Stop Time Status Last Admin Dose Admin Acetaminophen (Tylenol) 650 mg Q4H PRN ORAL Mild Pain/Temp > 100.5 05/17/18 23:00 06/16/18 22:59 Acetaminophen/ Hydrocodone Bitart (Volga 5/325) 1 tab Q4H PRN ORAL Moderate Pain (Pain Scale 4-6) 05/17/18 23:00 05/24/18 22:59 Atorvastatin Calcium (Lipitor) 20 mg BEDTIME ORAL 05/18/18 21:00 06/17/18 20:59 05/23/18 20:41 Ceftriaxone Sodium 1 gm/ Dextrose 55 ml @ 110 mls/hr Q12HR IVPB 05/18/18 09:00 05/25/18 08:59 05/24/18 09:02 Dextrose (Dextrose 50%) 50 ml Q30M PRN IV Hypoglycemia 05/17/18 23:00 06/16/18 22:59 Diphenhydramine HCl (Benadryl) 25 mg Q6H PRN ORAL Itching 05/17/18 23:00 06/16/18 22:59 Finasteride (Proscar) 5 mg DAILY ORAL 05/19/18 11:38 06/18/18 11:37 05/24/18 09:03 Insulin Aspart (NovoLOG) BEFORE MEALS AND HS SUBQ 05/18/18 06:30 06/17/18 06:29 05/23/18 12:35 Magnesium Chloride (Slow-Mag) 1 tab DAILY ORAL 05/18/18 09:00 06/17/18 08:59 05/24/18 09:03 Ondansetron HCl (Zofran) 4 mg Q6H PRN IVP Nausea & Vomiting 05/17/18 23:00 06/16/18 22:59 Rivaroxaban (Xarelto) 15 mg BID ORAL 05/22/18 13:30 06/11/18 18:01 05/24/18 09:03 Rivaroxaban (Xarelto) 20 mg DAILY ORAL 06/12/18 09:00 07/12/18 08:59 Tamsulosin HCl (Flomax) 0.4 mg BID ORAL 05/19/18 18:00 06/18/18 17:59 05/24/18 09:03 Vitamin D (Vitamin D) 1,000 intlu DAILY ORAL 05/18/18 09:00 06/17/18 08:59 05/24/18 09:03 Alden Roberto MD May 24, 2018 14:25
[2018-05-24] MEDS ORDERED: Lisinopril 20mg tab ORAL SCH (14:30)
[2018-05-24 16:00] VITALS: BP 145/70
[2018-05-24] MEDS: Lisinopril 20mg tab ORAL SCH (17:45)
[2018-05-24 20:00] VITALS: BP 139/81
--- NOTE | 2018-05-24 20:35 | Cardiology Progress Note ---
Assessment/Plan Assessment/Plan 1. Bilateral lower extremity edema, hypoalbuminemia or lymphedema, consider compression stockings on both lower extremity, pressure about 25 to 30 mmHg. DVT is ruled out. 2. Pulmonary embolism, continue Xarelto. 3. History of hypertension, continue lisinopril, add chlorthalidone. 4. History of diabetes mellitus, continue atorvastatin. Subjective Subjective Sinus rhythm at rate of 66. Objective Last 24 Hour Vital Signs Date Time Temp Pulse Resp B/P (MAP) Pulse Ox O2 Delivery O2 Flow Rate FiO2 05/24/18 17:45 145/70 05/24/18 16:00 66 05/24/18 16:00 97.9 61 19 145/70 (95) 100 05/24/18 14:36 138/70 05/24/18 12:00 98.8 82 21 162/99 (120) 99 05/24/18 12:00 79 05/24/18 09:00 Room Air 05/24/18 08:00 74 05/24/18 08:00 98.0 79 17 161/84 (109) 97 05/24/18 04:00 98.1 75 20 167/82 (110) 98 05/24/18 04:00 70 05/24/18 00:00 98.2 72 20 158/76 (103) 98 05/24/18 00:00 71 05/23/18 21:00 Room Air Intake and Output 05/23/18 05/24/18 19:00 07:00 Intake Total 360 ml 120 ml Output Total 1400 ml 950 ml Balance -1040 ml -830 ml Intake Oral 360 ml 120 ml Output Urine Total 1400 ml 950 ml 2D Echo: LVEF 55%, Grade I LVDD, no e/o RV strain, poor quality images Laboratory Tests Test 05/24/18 04:50 White Blood Count 5.5 K/UL (4.8-10.8) Red Blood Count 4.02 M/UL (4.70-6.10) L Hemoglobin 12.5 G/DL (14.2-18.0) L Hematocrit 37.2 % (42.0-52.0) L Mean Corpuscular Volume 93 FL (80-99) Mean Corpuscular Hemoglobin 31.0 PG (27.0-31.0) Mean Corpuscular Hemoglobin Concent 33.5 G/DL (32.0-36.0) Red Cell Distribution Width 14.5 % (11.6-14.8) Platelet Count 199 K/UL (150-450) Mean Platelet Volume 7.0 FL (6.5-10.1) Neutrophils (%) (Auto) 34.2 % (45.0-75.0) L Lymphocytes (%) (Auto) 49.7 % (20.0-45.0) H Monocytes (%) (Auto) 10.8 % (1.0-10.0) H Eosinophils (%) (Auto) 3.4 % (0.0-3.0) H Basophils (%) (Auto) 1.8 % (0.0-2.0) Sodium Level 141 MMOL/L (136-145) Potassium Level 3.8 MMOL/L (3.5-5.1) Chloride Level 105 MMOL/L (98-107) Carbon Dioxide Level 29 MMOL/L (21-32) Anion Gap 7 mmol/L (5-15) Blood Urea Nitrogen 6 mg/dL (7-18) L Creatinine 0.6 MG/DL (0.55-1.30) Estimat Glomerular Filtration Rate mL/min (>60) Glucose Level 87 MG/DL (74-106) Calcium Level 8.2 MG/DL (8.5-10.1) L Objective HEENT: Atraumatic and normocephalic. Anicteric. Pupils are equal, round, and reactive to light and accommodation. Extraocular muscles intact. NECK: JVP is flat close to 0 mmHg. No carotid bruit. Carotid upstroke is 2+ bilaterally. CARDIOVASCULAR: Normal S1, S2. Regular rate and rhythm. No murmurs, gallops, or rubs. PMI is at fourth intercostal space in the midclavicular line. LUNGS: Clear to auscultation bilaterally. ABDOMEN: Soft, nontender, and nondistended. No hepatosplenomegaly. Positive bowel sounds. EXTREMITIES: There is 3 to 4+ edema, squaring of the toes, and excoriations throughout both legs. Anthony Vazquez MD May 24, 2018 20:35
[2018-05-24] MEDS: Atorvastatin 20mg tab ORAL SCH (20:40)
[2018-05-25] VITALS: BP 150/72
[2018-05-25 04:00] VITALS: BP 138/63
[2018-05-25] MEDS: NovoLOG Insulin Flexpen SUBQ SCH ×5 (05:54→21:00)
[2018-05-25 07:04] LABS: ANION GAP 7 mmol/L (5-15); BLOOD UREA NITROGEN 8 mg/dL (7-18); CALCIUM 8.6 MG/DL (8.5-10.1); CARBON DIOXIDE 28 MMOL/L (21-32); CHLORIDE 104 MMOL/L (98-107); CREATININE 0.5 MG/DL (0.55-1.30); POTASSIUM 3.5 MMOL/L (3.5-5.1); SODIUM 139 MMOL/L (136-145)
[2018-05-25 07:08] LABS: BASOPHILS % (AUTO) 1.6 % (0.0-2.0); EOSINOPHILS % (AUTO) 3.5 % (0.0-3.0); HEMATOCRIT 33.9 % (42.0-52.0); HEMOGLOBIN 11.4 G/DL (14.2-18.0); LYMPHOCYTES % (AUTO) 41.3 % (20.0-45.0); MEAN CORPUSCULAR VOLUME 93 FL (80-99); MONOCYTES % (AUTO) 12.7 % (1.0-10.0); NEUTROPHILS % (AUTO) 40.9 % (45.0-75.0); PLATELET COUNT 216 K/UL (150-450); RED BLOOD COUNT 3.63 M/UL (4.70-6.10); RED CELL DISTRIBUTION WIDTH 14.2 % (11.6-14.8)
[2018-05-25 08:00] VITALS: BP 139/73
--- NOTE | 2018-05-25 09:12 | Pulmonology Progress Note ---
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) (4) Pulmonary embolism (5) Urinary tract infection-culture pending (6) CHF (7) Bilateral leg edema (8) Esophageal dysmotility, possible stricture (9) traumatic NGt placement with bleeding Assessment/Plan continue Xarelto refuses PEG or NGT; coughs after swallowing Blood pressure controlled ready for dc to snf when bed available Subjective Constitutional: Reports: no symptoms Respiratory: Reports: dry cough Allergies: Coded Allergies: HYDRALAZINE (Unverified Allergy, Unknown, Rash, 05/14/15) METFORMIN (Unverified Allergy, Unknown, NAUSEA ONLY, 05/14/15) Objective Last 24 Hour Vital Signs Date Time Temp Pulse Resp B/P (MAP) Pulse Ox O2 Delivery O2 Flow Rate FiO2 05/25/18 04:00 97.3 69 17 138/63 (88) 97 05/25/18 04:00 62 05/25/18 00:00 76 05/25/18 00:00 98.0 76 17 150/72 (98) 99 05/24/18 21:00 Room Air 05/24/18 20:00 97.9 88 17 139/81 (100) 97 05/24/18 20:00 88 05/24/18 17:45 145/70 05/24/18 16:00 66 05/24/18 16:00 97.9 61 19 145/70 (95) 100 05/24/18 14:36 138/70 05/24/18 12:00 98.8 82 21 162/99 (120) 99 05/24/18 12:00 79 Intake and Output 05/24/18 05/25/18 19:00 07:00 Intake Total 175 ml Output Total 400 ml Balance -225 ml Intake Oral 120 ml IV Total 55 ml Output Urine Total 400 ml # Voids 1 General Appearance: no acute distress Respiratory/Chest: lungs clear Cardiovascular: normal rate Laboratory Tests 05/25/18 06:05: White Blood Count 5.0, Red Blood Count 3.63L, Hemoglobin 11.4L, Hematocrit 33.9L , Mean Corpuscular Volume 93, Mean Corpuscular Hemoglobin 31.4H, Mean Corpuscular Hemoglobin Concent 33.6, Red Cell Distribution Width 14.2, Platelet Count 216, Mean Platelet Volume 6.0L, Neutrophils (%) (Auto) 40.9L, Lymphocytes (%) (Auto) 41.3, Monocytes (%) (Auto) 12.7H, Eosinophils (%) (Auto) 3.5H, Basophils (%) (Auto) 1.6, Sodium Level 139, Potassium Level 3.5, Chloride Level 104, Carbon Dioxide Level 28, Anion Gap 7, Blood Urea Nitrogen 8, Creatinine 0.5L, Estimat Glomerular Filtration Rate , Glucose Level 101, Calcium Level 8.6 Current Medications Medications (Trade) Dose Ordered Sig/Myrtle Route PRN Reason Start Time Stop Time Status Last Admin Dose Admin Acetaminophen (Tylenol) 650 mg Q4H PRN ORAL Mild Pain/Temp > 100.5 05/17/18 23:00 06/16/18 22:59 Atorvastatin Calcium (Lipitor) 20 mg BEDTIME ORAL 05/18/18 21:00 06/17/18 20:59 05/24/18 20:40 Chlorthalidone (Chlorthalidone) 25 mg DAILY ORAL 05/25/18 09:00 06/24/18 08:59 Dextrose (Dextrose 50%) 50 ml Q30M PRN IV Hypoglycemia 05/17/18 23:00 06/16/18 22:59 Diphenhydramine HCl (Benadryl) 25 mg Q6H PRN ORAL Itching 05/17/18 23:00 06/16/18 22:59 Finasteride (Proscar) 5 mg DAILY ORAL 05/19/18 11:38 06/18/18 11:37 05/24/18 09:03 Insulin Aspart (NovoLOG) BEFORE MEALS AND HS SUBQ 05/18/18 06:30 06/17/18 06:29 05/24/18 21:12 Lisinopril (Prinivil) 20 mg BID ORAL 05/24/18 18:00 06/23/18 17:59 05/24/18 17:45 Magnesium Chloride (Slow-Mag) 1 tab DAILY ORAL 05/18/18 09:00 06/17/18 08:59 05/24/18 09:03 Ondansetron HCl (Zofran) 4 mg Q6H PRN IVP Nausea & Vomiting 05/17/18 23:00 06/16/18 22:59 Rivaroxaban (Xarelto) 15 mg BID ORAL 05/22/18 13:30 06/11/18 18:01 05/24/18 17:45 Rivaroxaban (Xarelto) 20 mg DAILY ORAL 06/12/18 09:00 07/12/18 08:59 Tamsulosin HCl (Flomax) 0.4 mg BID ORAL 05/19/18 18:00 06/18/18 17:59 05/24/18 17:45 Vitamin D (Vitamin D) 1,000 intlu DAILY ORAL 05/18/18 09:00 06/17/18 08:59 05/24/18 09:03 Alden Roberto MD May 25, 2018 09:12
[2018-05-25] MEDS: Vitamin D 400 INTLU TAB ORAL SCH (09:20)
[2018-05-25] MEDS: Lisinopril 20mg tab ORAL SCH ×2 (09:21→17:52)
[2018-05-25] MEDS: Xarelto 15mg tab ORAL SCH ×2 (09:21→17:52)
[2018-05-25] MEDS: Tamsulosin 0.4mg cap ORAL SCH ×2 (09:21→17:52)
[2018-05-25] MEDS: Magnesium Chloride w/Calcium Tab ORAL SCH (09:21)
--- NOTE | 2018-05-25 10:51 | GI Progress Note ---
Assessment/Plan Problems: (1) Dysphasia ICD Codes: R47.02 - Dysphasia SNOMED: 09021766 (2) Severe malnutrition ICD Codes: E43 - Unspecified severe protein-calorie malnutrition SNOMED: 41474625 (3) Esophageal dysmotility ICD Codes: K22.4 - Dyskinesia of esophagus SNOMED: 380368512 (4) Anemia ICD Codes: D64.9 - Anemia, unspecified SNOMED: 252592621 Status: unchanged Status Narrative Discussed with Dr. Jessica. Assessment/Plan SUMMARY OF FINDINGS: 1. We could not get the scope in the duodenum. 2. No evidence of any esophageal stricture or narrowing. 3. 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 4. Gastritis, but given the patient on heparin, we did not biopsy it. Speech therapy video swallow study reviewed. Patient is high risk for aspiration. PEG refused by patient and family. RECOMMENDATIONS: Patient diet advanced to cardiac pure with strict aspiration precautions and one-to-one feeder. NGT and PEG if family agrees prn transfusion ppi fu labs dc planning The patient was seen and examined at bedside and all new and available data was reviewed in the patients chart. I agree with the above findings, impression and plan. (Patient seen earlier today. Signature stamp does not reflect patient encounter time.). - Froy Jessica MD Subjective Subjective Refused G-tube placement refused NGT wants to be transferred to [place] Objective Last 24 Hour Vital Signs Date Time Temp Pulse Resp B/P (MAP) Pulse Ox O2 Delivery O2 Flow Rate FiO2 05/25/18 09:21 139/73 05/25/18 09:00 Room Air 05/25/18 08:00 97.1 70 16 139/73 (95) 98 05/25/18 04:00 97.3 69 17 138/63 (88) 97 05/25/18 04:00 62 05/25/18 00:00 76 05/25/18 00:00 98.0 76 17 150/72 (98) 99 05/24/18 21:00 Room Air 05/24/18 20:00 97.9 88 17 139/81 (100) 97 05/24/18 20:00 88 05/24/18 17:45 145/70 05/24/18 16:00 66 05/24/18 16:00 97.9 61 19 145/70 (95) 100 05/24/18 14:36 138/70 05/24/18 12:00 98.8 82 21 162/99 (120) 99 05/24/18 12:00 79 Intake and Output 05/24/18 05/25/18 19:00 07:00 Intake Total 175 ml Output Total 400 ml Balance -225 ml Intake Oral 120 ml IV Total 55 ml Output Urine Total 400 ml # Voids 1 Laboratory Tests Test 05/25/18 06:05 White Blood Count 5.0 K/UL (4.8-10.8) Red Blood Count 3.63 M/UL (4.70-6.10) L Hemoglobin 11.4 G/DL (14.2-18.0) L Hematocrit 33.9 % (42.0-52.0) L Mean Corpuscular Volume 93 FL (80-99) Mean Corpuscular Hemoglobin 31.4 PG (27.0-31.0) H Mean Corpuscular Hemoglobin Concent 33.6 G/DL (32.0-36.0) Red Cell Distribution Width 14.2 % (11.6-14.8) Platelet Count 216 K/UL (150-450) Mean Platelet Volume 6.0 FL (6.5-10.1) L Neutrophils (%) (Auto) 40.9 % (45.0-75.0) L Lymphocytes (%) (Auto) 41.3 % (20.0-45.0) Monocytes (%) (Auto) 12.7 % (1.0-10.0) H Eosinophils (%) (Auto) 3.5 % (0.0-3.0) H Basophils (%) (Auto) 1.6 % (0.0-2.0) Sodium Level 139 MMOL/L (136-145) Potassium Level 3.5 MMOL/L (3.5-5.1) Chloride Level 104 MMOL/L (98-107) Carbon Dioxide Level 28 MMOL/L (21-32) Anion Gap 7 mmol/L (5-15) Blood Urea Nitrogen 8 mg/dL (7-18) Creatinine 0.5 MG/DL (0.55-1.30) L Estimat Glomerular Filtration Rate mL/min (>60) Glucose Level 101 MG/DL (74-106) Calcium Level 8.6 MG/DL (8.5-10.1) Height (Feet): 5 Height (Inches): 10.00 Weight (Pounds): 232 General Appearance: WD/WN, no apparent distress, alert Cardiovascular: normal rate Respiratory/Chest: normal breath sounds, no respiratory distress Abdominal Exam: normal bowel sounds, non tender, soft Extremities: normal range of motion, non-tender Greg Harris NP May 25, 2018 10:51
[2018-05-25 12:00] VITALS: BP 136/82
--- NOTE | 2018-05-25 15:37 | Nephrology Progress Note ---
Assessment/Plan Assessment 1) S/p obstructive uropathy 2) Edema 3) Hypoalbuminemia 4) CKD III 5) Non nephrotic range proteinuria Plan: Continue current measures Subjective Subjective He is doing status quo, no c/p or sob Objective Objective Last 24 Hour Vital Signs Date Time Temp Pulse Resp B/P (MAP) Pulse Ox O2 Delivery O2 Flow Rate FiO2 05/25/18 12:00 97.8 77 16 136/82 (100) 98 05/25/18 12:00 75 05/25/18 09:21 139/73 05/25/18 09:00 Room Air 05/25/18 08:00 67 05/25/18 08:00 97.1 70 16 139/73 (95) 98 05/25/18 04:00 97.3 69 17 138/63 (88) 97 05/25/18 04:00 62 05/25/18 00:00 76 05/25/18 00:00 98.0 76 17 150/72 (98) 99 05/24/18 21:00 Room Air 05/24/18 20:00 97.9 88 17 139/81 (100) 97 05/24/18 20:00 88 05/24/18 17:45 145/70 05/24/18 16:00 66 05/24/18 16:00 97.9 61 19 145/70 (95) 100 Intake and Output 05/24/18 05/25/18 19:00 07:00 Intake Total 175 ml Output Total 400 ml Balance -225 ml Intake Oral 120 ml IV Total 55 ml Output Urine Total 400 ml # Voids 1 Laboratory Tests 05/25/18 06:05: White Blood Count 5.0, Red Blood Count 3.63L, Hemoglobin 11.4L, Hematocrit 33.9L , Mean Corpuscular Volume 93, Mean Corpuscular Hemoglobin 31.4H, Mean Corpuscular Hemoglobin Concent 33.6, Red Cell Distribution Width 14.2, Platelet Count 216, Mean Platelet Volume 6.0L, Neutrophils (%) (Auto) 40.9L, Lymphocytes (%) (Auto) 41.3, Monocytes (%) (Auto) 12.7H, Eosinophils (%) (Auto) 3.5H, Basophils (%) (Auto) 1.6, Sodium Level 139, Potassium Level 3.5, Chloride Level 104, Carbon Dioxide Level 28, Anion Gap 7, Blood Urea Nitrogen 8, Creatinine 0.5L, Estimat Glomerular Filtration Rate , Glucose Level 101, Calcium Level 8.6 Height (Feet): 5 Height (Inches): 10.00 Weight (Pounds): 232 General Appearance: WD/WN, no apparent distress EENT: PERRL/EOMI Neck: non-tender, normal alignment Cardiovascular: normal peripheral pulses, normal rate, no JVD Respiratory/Chest: lungs clear Abdomen: non tender, soft Extremities: moderate edema Neurologic: edge stitcher II-XII grossly normal, no motor/sensory deficits Emil Groves MD May 25, 2018 15:37
[2018-05-25 16:00] VITALS: BP 119/72
[2018-05-25 20:00] VITALS: BP 118/65
[2018-05-25] MEDS: Atorvastatin 20mg tab ORAL SCH (21:30)
--- NOTE | 2018-05-25 22:00 | Cardiology Progress Note ---
Assessment/Plan Assessment/Plan 1. Bilateral lower extremity edema, hypoalbuminemia or lymphedema, consider compression stockings, DVT is ruled out. 2. Pulmonary embolism, continue Xarelto. 3. History of hypertension, continue lisinopril, add chlorthalidone. 4. History of diabetes mellitus, continue atorvastatin. Subjective Subjective Sinus rhythm at rate of 75. Objective Last 24 Hour Vital Signs Date Time Temp Pulse Resp B/P (MAP) Pulse Ox O2 Delivery O2 Flow Rate FiO2 05/25/18 17:52 119/72 05/25/18 16:00 75 05/25/18 16:00 97.8 78 16 119/72 (88) 95 05/25/18 12:00 97.8 77 16 136/82 (100) 98 05/25/18 12:00 75 05/25/18 09:21 139/73 05/25/18 09:00 Room Air 05/25/18 08:00 67 05/25/18 08:00 97.1 70 16 139/73 (95) 98 05/25/18 04:00 97.3 69 17 138/63 (88) 97 05/25/18 04:00 62 05/25/18 00:00 76 05/25/18 00:00 98.0 76 17 150/72 (98) 99 Intake and Output 05/24/18 05/25/18 19:00 07:00 Intake Total 175 ml Output Total 400 ml Balance -225 ml Intake Oral 120 ml IV Total 55 ml Output Urine Total 400 ml # Voids 1 2D Echo: LVEF 55%, Grade I LVDD, no e/o RV strain, poor quality images Laboratory Tests Test 05/25/18 06:05 White Blood Count 5.0 K/UL (4.8-10.8) Red Blood Count 3.63 M/UL (4.70-6.10) L Hemoglobin 11.4 G/DL (14.2-18.0) L Hematocrit 33.9 % (42.0-52.0) L Mean Corpuscular Volume 93 FL (80-99) Mean Corpuscular Hemoglobin 31.4 PG (27.0-31.0) H Mean Corpuscular Hemoglobin Concent 33.6 G/DL (32.0-36.0) Red Cell Distribution Width 14.2 % (11.6-14.8) Platelet Count 216 K/UL (150-450) Mean Platelet Volume 6.0 FL (6.5-10.1) L Neutrophils (%) (Auto) 40.9 % (45.0-75.0) L Lymphocytes (%) (Auto) 41.3 % (20.0-45.0) Monocytes (%) (Auto) 12.7 % (1.0-10.0) H Eosinophils (%) (Auto) 3.5 % (0.0-3.0) H Basophils (%) (Auto) 1.6 % (0.0-2.0) Sodium Level 139 MMOL/L (136-145) Potassium Level 3.5 MMOL/L (3.5-5.1) Chloride Level 104 MMOL/L (98-107) Carbon Dioxide Level 28 MMOL/L (21-32) Anion Gap 7 mmol/L (5-15) Blood Urea Nitrogen 8 mg/dL (7-18) Creatinine 0.5 MG/DL (0.55-1.30) L Estimat Glomerular Filtration Rate mL/min (>60) Glucose Level 101 MG/DL (74-106) Calcium Level 8.6 MG/DL (8.5-10.1) Objective HEENT: Atraumatic and normocephalic. Anicteric. Pupils are equal, round, and reactive to light and accommodation. Extraocular muscles intact. NECK: JVP is flat close to 0 mmHg. No carotid bruit. Carotid upstroke is 2+ bilaterally. CARDIOVASCULAR: Normal S1, S2. Regular rate and rhythm. No murmurs, gallops, or rubs. PMI is at fourth intercostal space in the midclavicular line. LUNGS: Clear to auscultation bilaterally. ABDOMEN: Soft, nontender, and nondistended. No hepatosplenomegaly. Positive bowel sounds. EXTREMITIES: There is 3 to 4+ edema, squaring of the toes, and excoriations throughout both legs. Anthony Vazquez MD May 25, 2018 22:00
--- NOTE | 2018-05-25 22:00 | Cardiology Progress Note ---
Assessment/Plan Assessment/Plan 1. Bilateral lower extremity edema, hypoalbuminemia or lymphedema, consider compression stockings on both lower extremity, pressure about 25 to 30 mmHg. DVT is ruled out. 2. Pulmonary embolism, continue Xarelto. 3. History of hypertension, continue lisinopril, add chlorthalidone. 4. History of diabetes mellitus, continue atorvastatin. Subjective Subjective Sinus rhythm at rate of 66. Objective Last 24 Hour Vital Signs Date Time Temp Pulse Resp B/P (MAP) Pulse Ox O2 Delivery O2 Flow Rate FiO2 05/25/18 17:52 119/72 05/25/18 16:00 75 05/25/18 16:00 97.8 78 16 119/72 (88) 95 05/25/18 12:00 97.8 77 16 136/82 (100) 98 05/25/18 12:00 75 05/25/18 09:21 139/73 05/25/18 09:00 Room Air 05/25/18 08:00 67 05/25/18 08:00 97.1 70 16 139/73 (95) 98 05/25/18 04:00 97.3 69 17 138/63 (88) 97 05/25/18 04:00 62 05/25/18 00:00 76 05/25/18 00:00 98.0 76 17 150/72 (98) 99 Intake and Output 05/24/18 05/25/18 19:00 07:00 Intake Total 175 ml Output Total 400 ml Balance -225 ml Intake Oral 120 ml IV Total 55 ml Output Urine Total 400 ml # Voids 1 Laboratory Tests Test 05/25/18 06:05 White Blood Count 5.0 K/UL (4.8-10.8) Red Blood Count 3.63 M/UL (4.70-6.10) L Hemoglobin 11.4 G/DL (14.2-18.0) L Hematocrit 33.9 % (42.0-52.0) L Mean Corpuscular Volume 93 FL (80-99) Mean Corpuscular Hemoglobin 31.4 PG (27.0-31.0) H Mean Corpuscular Hemoglobin Concent 33.6 G/DL (32.0-36.0) Red Cell Distribution Width 14.2 % (11.6-14.8) Platelet Count 216 K/UL (150-450) Mean Platelet Volume 6.0 FL (6.5-10.1) L Neutrophils (%) (Auto) 40.9 % (45.0-75.0) L Lymphocytes (%) (Auto) 41.3 % (20.0-45.0) Monocytes (%) (Auto) 12.7 % (1.0-10.0) H Eosinophils (%) (Auto) 3.5 % (0.0-3.0) H Basophils (%) (Auto) 1.6 % (0.0-2.0) Sodium Level 139 MMOL/L (136-145) Potassium Level 3.5 MMOL/L (3.5-5.1) Chloride Level 104 MMOL/L (98-107) Carbon Dioxide Level 28 MMOL/L (21-32) Anion Gap 7 mmol/L (5-15) Blood Urea Nitrogen 8 mg/dL (7-18) Creatinine 0.5 MG/DL (0.55-1.30) L Estimat Glomerular Filtration Rate mL/min (>60) Glucose Level 101 MG/DL (74-106) Calcium Level 8.6 MG/DL (8.5-10.1) Objective HEENT: Atraumatic and normocephalic. Anicteric. Pupils are equal, round, and reactive to light and accommodation. Extraocular muscles intact. NECK: JVP is flat close to 0 mmHg. No carotid bruit. Carotid upstroke is 2+ bilaterally. CARDIOVASCULAR: Normal S1, S2. Regular rate and rhythm. No murmurs, gallops, or rubs. PMI is at fourth intercostal space in the midclavicular line. LUNGS: Clear to auscultation bilaterally. ABDOMEN: Soft, nontender, and nondistended. No hepatosplenomegaly. Positive bowel sounds. EXTREMITIES: There is 3 to 4+ edema, squaring of the toes, and excoriations throughout both legs. Anthony Vazquez MD May 25, 2018 22:00
[2018-05-26] VITALS: BP 108/58
[2018-05-26 04:00] VITALS: BP 112/62
[2018-05-26] MEDS: NovoLOG Insulin Flexpen SUBQ SCH ×4 (06:05→21:00)
[2018-05-26 07:49] LABS: BASOPHILS % (AUTO) 2.6 % (0.0-2.0); EOSINOPHILS % (AUTO) 3.2 % (0.0-3.0); HEMOGLOBIN 11.5 G/DL (14.2-18.0); LYMPHOCYTES % (AUTO) 44.5 % (20.0-45.0); MEAN CORPUSCULAR VOLUME 95 FL (80-99); MONOCYTES % (AUTO) 9.2 % (1.0-10.0); NEUTROPHILS % (AUTO) 40.5 % (45.0-75.0); PLATELET COUNT 210 K/UL (150-450); RED BLOOD COUNT 3.68 M/UL (4.70-6.10); RED CELL DISTRIBUTION WIDTH 14.8 % (11.6-14.8); WHITE BLOOD COUNT 4.5 K/UL (4.8-10.8)
[2018-05-26] MEDS: Magnesium Chloride w/Calcium Tab ORAL SCH (07:57)
[2018-05-26] MEDS: Vitamin D 400 INTLU TAB ORAL SCH (07:57)
[2018-05-26] MEDS: Lisinopril 20mg tab ORAL SCH ×2 (07:57→17:00)
[2018-05-26] MEDS: Xarelto 15mg tab ORAL SCH ×2 (07:57→17:00)
[2018-05-26] MEDS: Tamsulosin 0.4mg cap ORAL SCH ×2 (07:57→17:01)
[2018-05-26 08:00] VITALS: BP 148/73
[2018-05-26 08:12] LABS: ANION GAP 8 mmol/L (5-15); BLOOD UREA NITROGEN 9 mg/dL (7-18); CALCIUM 8.6 MG/DL (8.5-10.1); CARBON DIOXIDE 27 MMOL/L (21-32); CHLORIDE 106 MMOL/L (98-107); CREATININE 0.5 MG/DL (0.55-1.30); POTASSIUM 3.8 MMOL/L (3.5-5.1); SODIUM 141 MMOL/L (136-145)
--- NOTE | 2018-05-26 08:39 | General Progress Note ---
Assessment/Plan Problem List: (1) Anemia ICD Codes: D64.9 - Anemia, unspecified SNOMED: 635903611 (2) Esophageal dysmotility ICD Codes: K22.4 - Dyskinesia of esophagus SNOMED: 236737125 (3) Pulmonary embolism ICD Codes: I26.99 - Other pulmonary embolism without acute cor pulmonale SNOMED: 51247501 (4) CHF (congestive heart failure) ICD Codes: I50.9 - Heart failure, unspecified SNOMED: 63440823 Assessment/Plan Assessment/Plan SUMMARY OF FINDINGS: 1. We could not get the scope in the duodenum. 2. No evidence of any esophageal stricture or narrowing. 3. 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 4. Gastritis, but given the patient on heparin, we did not biopsy it. Speech therapy video swallow study reviewed. Patient is high risk for aspiration. PEG refused by patient and family. RECOMMENDATIONS: Patient diet advanced to cardiac pure with strict aspiration precautions and one-to-one feeder. NGT and PEG if family agrees prn transfusion ppi fu labs dc planning Subjective ROS Limited/Unobtainable: Yes Allergies: Coded Allergies: HYDRALAZINE (Unverified Allergy, Unknown, Rash, 05/14/15) METFORMIN (Unverified Allergy, Unknown, NAUSEA ONLY, 05/14/15) Subjective dysphagia Objective Last 24 Hour Vital Signs Date Time Temp Pulse Resp B/P (MAP) Pulse Ox O2 Delivery O2 Flow Rate FiO2 05/26/18 08:00 97.3 70 20 148/73 (98) 97 05/26/18 07:57 143/72 05/26/18 04:00 98.2 68 19 112/62 (79) 98 05/26/18 04:00 55 05/26/18 00:00 97.5 72 18 108/58 (75) 97 05/26/18 00:00 73 05/25/18 23:55 Room Air 05/25/18 20:00 97.5 86 18 118/65 (82) 96 05/25/18 20:00 97 05/25/18 17:52 119/72 05/25/18 16:00 75 05/25/18 16:00 97.8 78 16 119/72 (88) 95 05/25/18 12:00 97.8 77 16 136/82 (100) 98 05/25/18 12:00 75 05/25/18 09:21 139/73 05/25/18 09:00 Room Air Intake and Output 05/25/18 05/26/18 18:59 06:59 Intake Total 240 ml 120 ml Output Total 300 ml 400 ml Balance -60 ml -280 ml Intake Oral 240 ml 120 ml Output Urine Total 300 ml 400 ml # Voids 1 # Bowel Movements 1 Laboratory Tests 05/26/18 06:19: White Blood Count 4.5L, Red Blood Count 3.68L, Hemoglobin 11.5L, Hematocrit 35.0L, Mean Corpuscular Volume 95, Mean Corpuscular Hemoglobin 31.3H, Mean Corpuscular Hemoglobin Concent 33.0, Red Cell Distribution Width 14.8, Platelet Count 210, Mean Platelet Volume 6.0L, Neutrophils (%) (Auto) 40.5L, Lymphocytes (%) (Auto) 44.5, Monocytes (%) (Auto) 9.2, Eosinophils (%) (Auto) 3.2H, Basophils (%) (Auto) 2.6H, Sodium Level 141, Potassium Level 3.8, Chloride Level 106, Carbon Dioxide Level 27, Anion Gap 8, Blood Urea Nitrogen 9, Creatinine 0.5L, Estimat Glomerular Filtration Rate , Glucose Level 117H, Calcium Level 8.6 Height (Feet): 5 Height (Inches): 10.00 Weight (Pounds): 237 General Appearance: alert EENT: TMs normal Neck: supple Cardiovascular: normal rate Respiratory/Chest: lungs clear Abdomen: normal bowel sounds, non tender, soft Extremities: non-tender Froy Jessica MD May 26, 2018 08:39
[2018-05-26 11:55] VITALS: BP 129/80
--- NOTE | 2018-05-26 14:59 | Nephrology Progress Note ---
Assessment/Plan Assessment 1) S/p obstructive uropathy 2) Edema 3) Hypoalbuminemia 4) CKD III 5) Non nephrotic range proteinuria Plan: Continue current measures Subjective Subjective He is doing status quo, no c/p or sob, no new complaint Objective Objective Last 24 Hour Vital Signs Date Time Temp Pulse Resp B/P (MAP) Pulse Ox O2 Delivery O2 Flow Rate FiO2 05/26/18 11:55 97.1 70 20 129/80 (96) 98 05/26/18 08:55 Room Air 05/26/18 08:00 64 05/26/18 08:00 97.3 70 20 148/73 (98) 97 05/26/18 07:57 143/72 05/26/18 04:00 98.2 68 19 112/62 (79) 98 05/26/18 04:00 55 05/26/18 00:00 97.5 72 18 108/58 (75) 97 05/26/18 00:00 73 05/25/18 23:55 Room Air 05/25/18 20:00 97.5 86 18 118/65 (82) 96 05/25/18 20:00 97 05/25/18 17:52 119/72 05/25/18 16:00 75 05/25/18 16:00 97.8 78 16 119/72 (88) 95 Intake and Output 05/25/18 05/26/18 18:59 06:59 Intake Total 240 ml 120 ml Output Total 300 ml 400 ml Balance -60 ml -280 ml Intake Oral 240 ml 120 ml Output Urine Total 300 ml 400 ml # Voids 1 # Bowel Movements 1 Laboratory Tests 05/26/18 06:19: White Blood Count 4.5L, Red Blood Count 3.68L, Hemoglobin 11.5L, Hematocrit 35.0L, Mean Corpuscular Volume 95, Mean Corpuscular Hemoglobin 31.3H, Mean Corpuscular Hemoglobin Concent 33.0, Red Cell Distribution Width 14.8, Platelet Count 210, Mean Platelet Volume 6.0L, Neutrophils (%) (Auto) 40.5L, Lymphocytes (%) (Auto) 44.5, Monocytes (%) (Auto) 9.2, Eosinophils (%) (Auto) 3.2H, Basophils (%) (Auto) 2.6H, Sodium Level 141, Potassium Level 3.8, Chloride Level 106, Carbon Dioxide Level 27, Anion Gap 8, Blood Urea Nitrogen 9, Creatinine 0.5L, Estimat Glomerular Filtration Rate , Glucose Level 117H, Calcium Level 8.6 Height (Feet): 5 Height (Inches): 10.00 Weight (Pounds): 237 General Appearance: WD/WN, no apparent distress EENT: PERRL/EOMI Neck: non-tender, normal alignment Cardiovascular: normal peripheral pulses, normal rate Respiratory/Chest: lungs clear, normal breath sounds, no respiratory distress Abdomen: normal bowel sounds, non tender Extremities: normal range of motion, moderate edema Neurologic: 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
[2018-05-26 16:00] VITALS: BP 131/62
[2018-05-26 20:00] VITALS: BP 118/59
[2018-05-26] MEDS: Atorvastatin 20mg tab ORAL SCH (20:42)
--- NOTE | 2018-05-26 20:58 | Pulmonology Progress Note ---
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) (4) Pulmonary embolism (5) Urinary tract infection-culture pending (6) CHF (7) Bilateral leg edema (8) Esophageal dysmotility, possible stricture (9) traumatic NGt placement with bleeding Assessment/Plan to DC today but SNF states no power at facility adn can't accept continue Xarelto refuses PEG or NGT; coughs after swallowing Blood pressure controlled ready for dc to snf when bed available in am order given Subjective Constitutional: Reports: no symptoms HEENT: Repors: no symptoms Respiratory: Reports: no symptoms Cardiovascular: Reports: no symptoms Gastrointestinal/Abdominal: Reports: no symptoms Allergies: Coded Allergies: HYDRALAZINE (Unverified Allergy, Unknown, Rash, 05/14/15) METFORMIN (Unverified Allergy, Unknown, NAUSEA ONLY, 05/14/15) Subjective doign well toerlatign po on o2 no cp nv nonambulatory Objective Last 24 Hour Vital Signs Date Time Temp Pulse Resp B/P (MAP) Pulse Ox O2 Delivery O2 Flow Rate FiO2 05/26/18 17:00 131/62 05/26/18 16:00 58 05/26/18 16:00 97.3 69 20 131/62 (85) 96 05/26/18 12:00 65 05/26/18 11:55 97.1 70 20 129/80 (96) 98 05/26/18 08:55 Room Air 05/26/18 08:00 64 05/26/18 08:00 97.3 70 20 148/73 (98) 97 05/26/18 07:57 143/72 05/26/18 04:00 98.2 68 19 112/62 (79) 98 05/26/18 04:00 55 05/26/18 00:00 97.5 72 18 108/58 (75) 97 05/26/18 00:00 73 05/25/18 23:55 Room Air Intake and Output 05/25/18 05/26/18 19:00 07:00 Intake Total 240 ml 120 ml Output Total 300 ml 400 ml Balance -60 ml -280 ml Intake Oral 240 ml 120 ml Output Urine Total 300 ml 400 ml # Voids 1 # Bowel Movements 1 General Appearance: WD/WN Respiratory/Chest: lungs clear, normal breath sounds Cardiovascular: normal rate, regular rhythm Abdomen: soft, non tender, no organomegaly Extremities: no cyanosis Skin: no ulcers Laboratory Tests 05/26/18 06:19: White Blood Count 4.5L, Red Blood Count 3.68L, Hemoglobin 11.5L, Hematocrit 35.0L, Mean Corpuscular Volume 95, Mean Corpuscular Hemoglobin 31.3H, Mean Corpuscular Hemoglobin Concent 33.0, Red Cell Distribution Width 14.8, Platelet Count 210, Mean Platelet Volume 6.0L, Neutrophils (%) (Auto) 40.5L, Lymphocytes (%) (Auto) 44.5, Monocytes (%) (Auto) 9.2, Eosinophils (%) (Auto) 3.2H, Basophils (%) (Auto) 2.6H, Sodium Level 141, Potassium Level 3.8, Chloride Level 106, Carbon Dioxide Level 27, Anion Gap 8, Blood Urea Nitrogen 9, Creatinine 0.5L, Estimat Glomerular Filtration Rate , Glucose Level 117H, Calcium Level 8.6 Current Medications Medications (Trade) Dose Ordered Sig/Myrtle Route PRN Reason Start Time Stop Time Status Last Admin Dose Admin Acetaminophen (Tylenol) 650 mg Q4H PRN ORAL Mild Pain/Temp > 100.5 05/17/18 23:00 06/16/18 22:59 Atorvastatin Calcium (Lipitor) 20 mg BEDTIME ORAL 05/18/18 21:00 06/17/18 20:59 05/26/18 20:42 Chlorthalidone (Chlorthalidone) 25 mg DAILY ORAL 05/25/18 09:00 06/24/18 08:59 05/26/18 07:57 Dextrose (Dextrose 50%) 50 ml Q30M PRN IV Hypoglycemia 05/17/18 23:00 06/16/18 22:59 Diphenhydramine HCl (Benadryl) 25 mg Q6H PRN ORAL Itching 05/17/18 23:00 06/16/18 22:59 Finasteride (Proscar) 5 mg DAILY ORAL 05/19/18 11:38 06/18/18 11:37 05/26/18 07:56 Insulin Aspart (NovoLOG) BEFORE MEALS AND HS SUBQ 05/18/18 06:30 06/17/18 06:29 05/24/18 21:12 Lisinopril (Prinivil) 20 mg BID ORAL 05/24/18 18:00 06/23/18 17:59 05/26/18 17:00 Magnesium Chloride (Slow-Mag) 1 tab DAILY ORAL 05/18/18 09:00 06/17/18 08:59 05/26/18 07:57 Ondansetron HCl (Zofran) 4 mg Q6H PRN IVP Nausea & Vomiting 05/17/18 23:00 06/16/18 22:59 Rivaroxaban (Xarelto) 15 mg BID ORAL 05/22/18 13:30 06/11/18 18:01 05/26/18 17:00 Rivaroxaban (Xarelto) 20 mg DAILY ORAL 06/12/18 09:00 07/12/18 08:59 Tamsulosin HCl (Flomax) 0.4 mg BID ORAL 05/19/18 18:00 06/18/18 17:59 05/26/18 17:01 Vitamin D (Vitamin D) 1,000 intlu DAILY ORAL 05/18/18 09:00 06/17/18 08:59 05/26/18 07:57 Zaina Kuhn DO May 26, 2018 20:58
[2018-05-27] VITALS: BP 128/68
--- NOTE | 2018-05-27 01:17 | Cardiology Progress Note ---
Assessment/Plan Assessment/Plan LATE NOTE ENTRY DOS: May 26, 2018 Time of Encounter: 23:35 1. Bilateral lower extremity edema, hypoalbuminemia or lymphedema, consider compression stockings, DVT is ruled out. 2. Pulmonary embolism, continue Xarelto. 3. History of hypertension, continue lisinopril, add chlorthalidone. 4. History of diabetes mellitus, continue atorvastatin. Subjective Subjective Sinus rhythm at rate of 67. Objective Last 24 Hour Vital Signs Date Time Temp Pulse Resp B/P (MAP) Pulse Ox O2 Delivery O2 Flow Rate FiO2 05/27/18 00:00 97.7 67 18 128/68 (88) 98 05/27/18 00:00 67 05/26/18 21:00 Room Air 05/26/18 20:00 97.4 73 18 118/59 (78) 98 05/26/18 20:00 64 05/26/18 17:00 131/62 05/26/18 16:00 58 05/26/18 16:00 97.3 69 20 131/62 (85) 96 05/26/18 12:00 65 05/26/18 11:55 97.1 70 20 129/80 (96) 98 05/26/18 08:55 Room Air 05/26/18 08:00 64 05/26/18 08:00 97.3 70 20 148/73 (98) 97 05/26/18 07:57 143/72 05/26/18 04:00 98.2 68 19 112/62 (79) 98 05/26/18 04:00 55 Intake and Output 05/26/18 05/27/18 19:00 07:00 Intake Total 500 ml Output Total 175 ml Balance 325 ml Intake Oral 500 ml Output Urine Total 175 ml # Bowel Movements 1 2D Echo: LVEF 55%, Grade I LVDD, no e/o RV strain, poor quality images Laboratory Tests Test 05/26/18 06:19 White Blood Count 4.5 K/UL (4.8-10.8) L Red Blood Count 3.68 M/UL (4.70-6.10) L Hemoglobin 11.5 G/DL (14.2-18.0) L Hematocrit 35.0 % (42.0-52.0) L Mean Corpuscular Volume 95 FL (80-99) Mean Corpuscular Hemoglobin 31.3 PG (27.0-31.0) H Mean Corpuscular Hemoglobin Concent 33.0 G/DL (32.0-36.0) Red Cell Distribution Width 14.8 % (11.6-14.8) Platelet Count 210 K/UL (150-450) Mean Platelet Volume 6.0 FL (6.5-10.1) L Neutrophils (%) (Auto) 40.5 % (45.0-75.0) L Lymphocytes (%) (Auto) 44.5 % (20.0-45.0) Monocytes (%) (Auto) 9.2 % (1.0-10.0) Eosinophils (%) (Auto) 3.2 % (0.0-3.0) H Basophils (%) (Auto) 2.6 % (0.0-2.0) H Sodium Level 141 MMOL/L (136-145) Potassium Level 3.8 MMOL/L (3.5-5.1) Chloride Level 106 MMOL/L (98-107) Carbon Dioxide Level 27 MMOL/L (21-32) Anion Gap 8 mmol/L (5-15) Blood Urea Nitrogen 9 mg/dL (7-18) Creatinine 0.5 MG/DL (0.55-1.30) L Estimat Glomerular Filtration Rate mL/min (>60) Glucose Level 117 MG/DL (74-106) H Calcium Level 8.6 MG/DL (8.5-10.1) Objective HEENT: Atraumatic and normocephalic. Anicteric. Pupils are equal, round, and reactive to light and accommodation. Extraocular muscles intact. NECK: JVP is flat close to 0 mmHg. No carotid bruit. Carotid upstroke is 2+ bilaterally. CARDIOVASCULAR: Normal S1, S2. Regular rate and rhythm. No murmurs, gallops, or rubs. PMI is at fourth intercostal space in the midclavicular line. LUNGS: Clear to auscultation bilaterally. ABDOMEN: Soft, nontender, and nondistended. No hepatosplenomegaly. Positive bowel sounds. EXTREMITIES: There is 3 to 4+ edema, squaring of the toes, and excoriations throughout both legs. Anthony Vazquez MD May 27, 2018 01:17
[2018-05-27 04:00] VITALS: BP 132/80
[2018-05-27] MEDS: NovoLOG Insulin Flexpen SUBQ SCH ×4 (06:30→20:42)
[2018-05-27 07:49] VITALS: BP 140/70
[2018-05-27] MEDS: Tamsulosin 0.4mg cap ORAL SCH ×2 (08:13→17:04)
[2018-05-27] MEDS: Xarelto 15mg tab ORAL SCH ×2 (08:13→17:04)
[2018-05-27] MEDS: Vitamin D 400 INTLU TAB ORAL SCH (08:14)
[2018-05-27] MEDS: Lisinopril 20mg tab ORAL SCH ×2 (08:14→17:04)
--- NOTE | 2018-05-27 08:14 | General Progress Note ---
Assessment/Plan Problem List: (1) Anemia ICD Codes: D64.9 - Anemia, unspecified SNOMED: 023015273 (2) Esophageal dysmotility ICD Codes: K22.4 - Dyskinesia of esophagus SNOMED: 520687776 (3) Pulmonary embolism ICD Codes: I26.99 - Other pulmonary embolism without acute cor pulmonale SNOMED: 45536258 (4) CHF (congestive heart failure) ICD Codes: I50.9 - Heart failure, unspecified SNOMED: 83839599 Assessment/Plan Assessment/Plan SUMMARY OF FINDINGS: 1. We could not get the scope in the duodenum. 2. No evidence of any esophageal stricture or narrowing. 3. 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 4. Gastritis, but given the patient on heparin, we did not biopsy it. Speech therapy video swallow study reviewed. Patient is high risk for aspiration. PEG refused by patient and family. RECOMMENDATIONS: Patient diet advanced to cardiac pure with strict aspiration precautions and one-to-one feeder. prn transfusion ppi fu labs patient refusing PEG placement dc planning Subjective ROS Limited/Unobtainable: Yes Allergies: Coded Allergies: HYDRALAZINE (Unverified Allergy, Unknown, Rash, 05/14/15) METFORMIN (Unverified Allergy, Unknown, NAUSEA ONLY, 05/14/15) Subjective dysphagia Objective Last 24 Hour Vital Signs Date Time Temp Pulse Resp B/P (MAP) Pulse Ox O2 Delivery O2 Flow Rate FiO2 05/27/18 07:49 97.0 80 18 140/70 (93) 97 05/27/18 07:16 Room Air 05/27/18 04:00 59 05/27/18 04:00 97.0 62 18 132/80 (97) 97 05/27/18 00:00 97.7 67 18 128/68 (88) 98 05/27/18 00:00 67 05/26/18 21:00 Room Air 05/26/18 20:00 97.4 73 18 118/59 (78) 98 05/26/18 20:00 64 05/26/18 17:00 131/62 05/26/18 16:00 58 05/26/18 16:00 97.3 69 20 131/62 (85) 96 05/26/18 12:00 65 05/26/18 11:55 97.1 70 20 129/80 (96) 98 05/26/18 08:55 Room Air Intake and Output 05/26/18 05/27/18 19:00 07:00 Intake Total 500 ml Output Total 175 ml 300 ml Balance 325 ml -300 ml Intake Oral 500 ml Output Urine Total 175 ml 300 ml # Bowel Movements 1 Height (Feet): 5 Height (Inches): 10.00 Weight (Pounds): 236 General Appearance: alert EENT: normal ENT inspection Neck: supple Cardiovascular: normal rate Respiratory/Chest: decreased breath sounds Abdomen: normal bowel sounds, non tender, soft Extremities: non-tender Froy Jessica MD May 27, 2018 08:14
[2018-05-27] MEDS: Magnesium Chloride w/Calcium Tab ORAL SCH (08:19)
[2018-05-27 12:36] VITALS: BP 151/84
[2018-05-27] MEDS ORDERED: XARELTO10 MG ORAL ×2 (13:11)
--- NOTE | 2018-05-27 15:09 | Nephrology Progress Note ---
Assessment/Plan Assessment 1) S/p obstructive uropathy 2) Edema 3) Hypoalbuminemia 4) CKD III 5) Non nephrotic range proteinuria Plan: Continue current measures Send UA today Subjective Subjective He is doing status quo, no c/p or sob, no new complaint, some change in urine color Objective Objective Last 24 Hour Vital Signs Date Time Temp Pulse Resp B/P (MAP) Pulse Ox O2 Delivery O2 Flow Rate FiO2 05/27/18 12:36 97.2 77 18 151/84 (106) 97 05/27/18 11:52 73 05/27/18 08:14 140/70 05/27/18 07:52 74 05/27/18 07:49 97.0 80 18 140/70 (93) 97 05/27/18 07:16 Room Air 05/27/18 04:00 59 05/27/18 04:00 97.0 62 18 132/80 (97) 97 05/27/18 00:00 97.7 67 18 128/68 (88) 98 05/27/18 00:00 67 05/26/18 21:00 Room Air 05/26/18 20:00 97.4 73 18 118/59 (78) 98 05/26/18 20:00 64 05/26/18 17:00 131/62 05/26/18 16:00 58 05/26/18 16:00 97.3 69 20 131/62 (85) 96 Intake and Output 05/26/18 05/27/18 18:59 06:59 Intake Total 500 ml Output Total 175 ml 300 ml Balance 325 ml -300 ml Intake Oral 500 ml Output Urine Total 175 ml 300 ml # Bowel Movements 1 Height (Feet): 5 Height (Inches): 10.00 Weight (Pounds): 236 General Appearance: WD/WN, no apparent distress EENT: PERRL/EOMI, normal ENT inspection Neck: non-tender, normal alignment Cardiovascular: normal rate, regular rhythm, no JVD Respiratory/Chest: lungs clear Abdomen: normal bowel sounds, non tender Extremities: normal range of motion, non-tender 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
[2018-05-27 16:29] VITALS: BP 112/62
[2018-05-27 17:22] LABS: APPEARANCE,URINE CLOUDY; BILIRUBIN, URINE NEGATIVE (NEGATIVE); GLUCOSE, URINE (UA) NEGATIVE (NEGATIVE); KETONES,URINE NEGATIVE (NEGATIVE); LEUKOCYTE ESTERASE ,URINE 2+ (NEGATIVE); NITRITE,URINE NEGATIVE (NEGATIVE); PH,URINE 5 (4.5-8.0); PROTEIN,URINE 2+ (NEGATIVE); UROBILINOGEN,URINE 1 MG/DL (0.0-1.0)
[2018-05-27 17:27] LABS: COLOR,URINE AMBER
[2018-05-27 20:00] VITALS: BP 135/60
[2018-05-27] MEDS: Atorvastatin 20mg tab ORAL SCH (20:41)
--- NOTE | 2018-05-27 21:14 | Pulmonology Progress Note ---
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) (4) Pulmonary embolism (5) Urinary tract infection-culture pending (6) CHF (7) Bilateral leg edema (8) Esophageal dysmotility, possible stricture (9) traumatic NGt placement with bleeding Assessment/Plan still awaiting dc FU UA dip positive continue Xarelto refuses PEG or NGT; coughs after swallowing Blood pressure controlled ready for dc to snf when bed available in am order given Subjective Constitutional: Reports: no symptoms HEENT: Repors: no symptoms Respiratory: Reports: no symptoms Cardiovascular: Reports: no symptoms Gastrointestinal/Abdominal: Reports: no symptoms Allergies: Coded Allergies: HYDRALAZINE (Unverified Allergy, Unknown, Rash, 05/14/15) METFORMIN (Unverified Allergy, Unknown, NAUSEA ONLY, 05/14/15) Subjective doign well toerlatign po on o2 no cp nv nonambulatory Objective Last 24 Hour Vital Signs Date Time Temp Pulse Resp B/P (MAP) Pulse Ox O2 Delivery O2 Flow Rate FiO2 05/27/18 20:00 98.7 84 20 135/60 (85) 98 05/27/18 17:04 112/62 05/27/18 16:29 97.9 67 18 112/62 (79) 97 05/27/18 15:44 73 05/27/18 12:36 97.2 77 18 151/84 (106) 97 05/27/18 11:52 73 05/27/18 08:14 140/70 05/27/18 07:52 74 05/27/18 07:49 97.0 80 18 140/70 (93) 97 05/27/18 07:16 Room Air 05/27/18 04:00 59 05/27/18 04:00 97.0 62 18 132/80 (97) 97 05/27/18 00:00 97.7 67 18 128/68 (88) 98 05/27/18 00:00 67 Intake and Output 05/26/18 05/27/18 19:00 07:00 Intake Total 500 ml Output Total 175 ml 300 ml Balance 325 ml -300 ml Intake Oral 500 ml Output Urine Total 175 ml 300 ml # Bowel Movements 1 General Appearance: WD/WN Respiratory/Chest: lungs clear, normal breath sounds Cardiovascular: regular rhythm, regularly irregular Abdomen: soft, non tender, no organomegaly Extremities: no clubbing Skin: no lesions Neurologic/Psychiatric: oriented x 3 Lymphatic: no groin adenopathy Laboratory Tests 05/27/18 16:45: Urine Color [place]el[place], Urine Appearance Cloudy, Urine pH 5, Urine Specific [place] 1.025, Urine Protein 2+H, Urine Glucose (UA) Negative, Urine Ketones Negative, Urine Blood 5+H, Urine Nitrite Negative, Urine Bilirubin Negative, Urine Ictotest Negative, Urine Urobilinogen 1H, Urine Leukocyte Esterase 2+H, Urine RBC TntcH, Urine WBC 5-10H, Urine Squamous Epithelial Cells Occasional, Urine Bacteria ModerateH Current Medications Medications (Trade) Dose Ordered Sig/Myrtle Route PRN Reason Start Time Stop Time Status Last Admin Dose Admin Acetaminophen (Tylenol) 650 mg Q4H PRN ORAL Mild Pain/Temp > 100.5 05/17/18 23:00 06/16/18 22:59 Atorvastatin Calcium (Lipitor) 20 mg BEDTIME ORAL 05/18/18 21:00 06/17/18 20:59 05/27/18 20:41 Chlorthalidone (Chlorthalidone) 25 mg DAILY ORAL 05/25/18 09:00 06/24/18 08:59 05/27/18 08:14 Dextrose (Dextrose 50%) 50 ml Q30M PRN IV Hypoglycemia 05/17/18 23:00 06/16/18 22:59 Diphenhydramine HCl (Benadryl) 25 mg Q6H PRN ORAL Itching 05/17/18 23:00 06/16/18 22:59 Finasteride (Proscar) 5 mg DAILY ORAL 05/19/18 11:38 06/18/18 11:37 05/27/18 08:13 Insulin Aspart (NovoLOG) BEFORE MEALS AND HS SUBQ 05/18/18 06:30 06/17/18 06:29 05/27/18 20:42 Lisinopril (Prinivil) 20 mg BID ORAL 05/24/18 18:00 06/23/18 17:59 05/27/18 17:04 Magnesium Chloride (Slow-Mag) 1 tab DAILY ORAL 05/18/18 09:00 06/17/18 08:59 05/27/18 08:19 Ondansetron HCl (Zofran) 4 mg Q6H PRN IVP Nausea & Vomiting 05/17/18 23:00 06/16/18 22:59 Rivaroxaban (Xarelto) 15 mg BID ORAL 05/22/18 13:30 06/11/18 18:01 05/27/18 17:04 Rivaroxaban (Xarelto) 20 mg DAILY ORAL 06/12/18 09:00 07/12/18 08:59 Tamsulosin HCl (Flomax) 0.4 mg BID ORAL 05/19/18 18:00 06/18/18 17:59 05/27/18 17:04 Vitamin D (Vitamin D) 1,000 intlu DAILY ORAL 05/18/18 09:00 06/17/18 08:59 05/27/18 08:14 Zaina Kuhn DO May 27, 2018 21:14
--- NOTE | 2018-05-27 21:55 | Cardiology Progress Note ---
Assessment/Plan Assessment/Plan 1. Bilateral lower extremity edema, hypoalbuminemia or lymphedema, consider compression stockings, DVT is ruled out. No clinical or echo evidence for heart failure. 2. Pulmonary embolism, continue Xarelto. 3. History of hypertension, continue lisinopril, add chlorthalidone. 4. History of diabetes mellitus, continue atorvastatin. Subjective Subjective Sinus rhythm at rate of 84. Objective Last 24 Hour Vital Signs Date Time Temp Pulse Resp B/P (MAP) Pulse Ox O2 Delivery O2 Flow Rate FiO2 05/27/18 21:00 Room Air 05/27/18 20:00 98.7 84 20 135/60 (85) 98 05/27/18 19:46 78 05/27/18 17:04 112/62 05/27/18 16:29 97.9 67 18 112/62 (79) 97 05/27/18 15:44 73 05/27/18 12:36 97.2 77 18 151/84 (106) 97 05/27/18 11:52 73 05/27/18 08:14 140/70 05/27/18 07:52 74 05/27/18 07:49 97.0 80 18 140/70 (93) 97 05/27/18 07:16 Room Air 05/27/18 04:00 59 05/27/18 04:00 97.0 62 18 132/80 (97) 97 05/27/18 00:00 97.7 67 18 128/68 (88) 98 05/27/18 00:00 67 Intake and Output 05/26/18 05/27/18 19:00 07:00 Intake Total 500 ml Output Total 175 ml 300 ml Balance 325 ml -300 ml Intake Oral 500 ml Output Urine Total 175 ml 300 ml # Bowel Movements 1 2D Echo: LVEF 55%, Grade I LVDD, no e/o RV strain, poor quality images Laboratory Tests Test 05/27/18 16:45 Urine Color Yelitza Urine Appearance Cloudy Urine pH 5 (4.5-8.0) Urine Specific [place] 1.025 (1.005-1.035) Urine Protein 2+ (NEGATIVE) H Urine Glucose (UA) Negative (NEGATIVE) Urine Ketones Negative (NEGATIVE) Urine Blood 5+ (NEGATIVE) H Urine Nitrite Negative (NEGATIVE) Urine Bilirubin Negative (NEGATIVE) Urine Ictotest Negative (NEGATIVE) Urine Urobilinogen 1 MG/DL (0.0-1.0) H Urine Leukocyte Esterase 2+ (NEGATIVE) H Urine RBC Tntc /HPF (0 - 0) H Urine WBC 5-10 /HPF (0 - 0) H Urine Squamous Epithelial Cells Occasional /LPF Urine Bacteria Moderate /HPF (NONE) H Objective HEENT: Atraumatic and normocephalic. Anicteric. Pupils are equal, round, and reactive to light and accommodation. Extraocular muscles intact. NECK: JVP is flat close to 0 mmHg. No carotid bruit. Carotid upstroke is 2+ bilaterally. CARDIOVASCULAR: Normal S1, S2. Regular rate and rhythm. No murmurs, gallops, or rubs. PMI is at fourth intercostal space in the midclavicular line. LUNGS: Clear to auscultation bilaterally. ABDOMEN: Soft, nontender, and nondistended. No hepatosplenomegaly. Positive bowel sounds. EXTREMITIES: There is 3 to 4+ edema, squaring of the toes, and excoriations throughout both legs. Anthony Vazquez MD May 27, 2018 21:55
[2018-05-28] VITALS: BP 133/58
[2018-05-28 04:00] VITALS: BP 143/76
[2018-05-28] MEDS: NovoLOG Insulin Flexpen SUBQ SCH ×3 (05:39→17:40)
[2018-05-28 08:00] VITALS: BP 140/71
[2018-05-28] MEDS: Lisinopril 20mg tab ORAL SCH ×2 (09:33→18:54)
[2018-05-28] MEDS: Xarelto 15mg tab ORAL SCH ×2 (09:33→18:53)
[2018-05-28] MEDS: Tamsulosin 0.4mg cap ORAL SCH ×2 (09:34→18:53)
[2018-05-28] MEDS: Vitamin D 400 INTLU TAB ORAL SCH (09:34)
[2018-05-28] MEDS: Magnesium Chloride w/Calcium Tab ORAL SCH (09:35)
--- NOTE | 2018-05-28 10:32 | GI Progress Note ---
Assessment/Plan Problems: (1) Dysphasia ICD Codes: R47.02 - Dysphasia SNOMED: 66924711 (2) Severe malnutrition ICD Codes: E43 - Unspecified severe protein-calorie malnutrition SNOMED: 44198140 (3) Esophageal dysmotility ICD Codes: K22.4 - Dyskinesia of esophagus SNOMED: 403337072 (4) Anemia ICD Codes: D64.9 - Anemia, unspecified SNOMED: 496305712 Status: stable Status Narrative Discussed with Dr. Jessica. Assessment/Plan SUMMARY OF FINDINGS: 1. We could not get the scope in the duodenum. 2. No evidence of any esophageal stricture or narrowing. 3. 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 4. Gastritis, but given the patient on heparin, we did not biopsy it. Speech therapy video swallow study reviewed. Patient is high risk for aspiration. PEG refused by patient and family. RECOMMENDATIONS: Patient diet advanced to cardiac pure with strict aspiration precautions and one-to-one feeder. NGT and PEG if family agrees prn transfusion ppi fu labs dc planning The patient was seen and examined at bedside and all new and available data was reviewed in the patients chart. I agree with the above findings, impression and plan. (Patient seen earlier today. Signature stamp does not reflect patient encounter time.). - Froy Jessica MD Subjective Subjective Refused G-tube placement refused NGT Tolerating diet denies abdominal pain Objective Last 24 Hour Vital Signs Date Time Temp Pulse Resp B/P (MAP) Pulse Ox O2 Delivery O2 Flow Rate FiO2 05/28/18 09:33 140/71 05/28/18 08:00 98.3 63 20 140/71 (94) 99 63 05/28/18 08:00 Room Air 05/28/18 04:00 97.7 60 20 143/76 (98) 98 60 05/28/18 04:00 55 05/28/18 00:00 98.0 75 20 133/58 (83) 98 05/27/18 23:57 63 05/27/18 21:00 Room Air 05/27/18 20:00 98.7 84 20 135/60 (85) 98 05/27/18 19:46 78 05/27/18 17:04 112/62 05/27/18 16:29 97.9 67 18 112/62 (79) 97 05/27/18 15:44 73 05/27/18 12:36 97.2 77 18 151/84 (106) 97 05/27/18 11:52 73 Intake and Output 05/27/18 05/28/18 18:59 06:59 Intake Total 480 ml 120 ml Output Total 325 ml 500 ml Balance 155 ml -380 ml Intake Oral 480 ml 120 ml Output Urine Total 325 ml 500 ml # Bowel Movements 2 Laboratory Tests Test 05/27/18 16:45 Urine Color [place]el[place] Urine Appearance Cloudy Urine pH 5 (4.5-8.0) Urine Specific [place] 1.025 (1.005-1.035) Urine Protein 2+ (NEGATIVE) H Urine Glucose (UA) Negative (NEGATIVE) Urine Ketones Negative (NEGATIVE) Urine Blood 5+ (NEGATIVE) H Urine Nitrite Negative (NEGATIVE) Urine Bilirubin Negative (NEGATIVE) Urine Ictotest Negative (NEGATIVE) Urine Urobilinogen 1 MG/DL (0.0-1.0) H Urine Leukocyte Esterase 2+ (NEGATIVE) H Urine RBC Tntc /HPF (0 - 0) H Urine WBC 5-10 /HPF (0 - 0) H Urine Squamous Epithelial Cells Occasional /LPF Urine Bacteria Moderate /HPF (NONE) H Microbiology Date/Time Source Procedure Growth Status 05/27/18 16:45 Urine,Clean Catch Urine Culture - Preliminary NO GROWTH Resulted Height (Feet): 5 Height (Inches): 10.00 Weight (Pounds): 237 General Appearance: WD/WN, no apparent distress, alert Cardiovascular: normal rate Respiratory/Chest: normal breath sounds, no respiratory distress Abdominal Exam: normal bowel sounds, non tender, soft Extremities: non-tender Greg Harris ABLE BODIED WATCHMAN May 28, 2018 10:32
[2018-05-28 12:00] VITALS: BP 144/73
--- NOTE | 2018-05-28 12:24 | Pulmonology Progress Note ---
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) (4) Pulmonary embolism (5) Urinary tract infection-culture pending (6) CHF (7) Bilateral leg edema (8) Esophageal dysmotility, possible stricture (9) traumatic NGt placement with bleeding Assessment/Plan continue Xarelto refuses PEG or NGT; coughs after swallowing dc to snf when bed available Subjective Constitutional: Reports: no symptoms Allergies: Coded Allergies: HYDRALAZINE (Unverified Allergy, Unknown, Rash, 05/14/15) METFORMIN (Unverified Allergy, Unknown, NAUSEA ONLY, 05/14/15) Objective Last 24 Hour Vital Signs Date Time Temp Pulse Resp B/P (MAP) Pulse Ox O2 Delivery O2 Flow Rate FiO2 05/28/18 09:33 140/71 05/28/18 08:04 39 05/28/18 08:00 98.3 63 20 140/71 (94) 99 63 05/28/18 08:00 Room Air 05/28/18 04:00 97.7 60 20 143/76 (98) 98 60 05/28/18 04:00 55 05/28/18 00:00 98.0 75 20 133/58 (83) 98 05/27/18 23:57 63 05/27/18 21:00 Room Air 05/27/18 20:00 98.7 84 20 135/60 (85) 98 05/27/18 19:46 78 05/27/18 17:04 112/62 05/27/18 16:29 97.9 67 18 112/62 (79) 97 05/27/18 15:44 73 05/27/18 12:36 97.2 77 18 151/84 (106) 97 Intake and Output 05/27/18 05/28/18 18:59 06:59 Intake Total 480 ml 120 ml Output Total 325 ml 500 ml Balance 155 ml -380 ml Intake Oral 480 ml 120 ml Output Urine Total 325 ml 500 ml # Bowel Movements 2 General Appearance: no acute distress HEENT: atraumatic Respiratory/Chest: lungs clear Cardiovascular: normal rate Microbiology Date/Time Source Procedure Growth Status 05/27/18 16:45 Urine,Clean Catch Urine Culture - Preliminary NO GROWTH Resulted Laboratory Tests 05/27/18 16:45: Urine Color [place], Urine Appearance Cloudy, Urine pH 5, Urine Specific [place] 1.025, Urine Protein 2+H, Urine Glucose (UA) Negative, Urine Ketones Negative, Urine Blood 5+H, Urine Nitrite Negative, Urine Bilirubin Negative, Urine Ictotest Negative, Urine Urobilinogen 1H, Urine Leukocyte Esterase 2+H, Urine RBC TntcH, Urine WBC 5-10H, Urine Squamous Epithelial Cells Occasional, Urine Bacteria ModerateH Current Medications Medications (Trade) Dose Ordered Sig/Myrtle Route PRN Reason Start Time Stop Time Status Last Admin Dose Admin Acetaminophen (Tylenol) 650 mg Q4H PRN ORAL Mild Pain/Temp > 100.5 05/17/18 23:00 06/16/18 22:59 Atorvastatin Calcium (Lipitor) 20 mg BEDTIME ORAL 05/18/18 21:00 06/17/18 20:59 05/27/18 20:41 Chlorthalidone (Chlorthalidone) 25 mg DAILY ORAL 05/25/18 09:00 06/24/18 08:59 05/28/18 09:33 Dextrose (Dextrose 50%) 50 ml Q30M PRN IV Hypoglycemia 05/17/18 23:00 06/16/18 22:59 Diphenhydramine HCl (Benadryl) 25 mg Q6H PRN ORAL Itching 05/17/18 23:00 06/16/18 22:59 Finasteride (Proscar) 5 mg DAILY ORAL 05/19/18 11:38 06/18/18 11:37 05/28/18 09:33 Insulin Aspart (NovoLOG) BEFORE MEALS AND HS SUBQ 05/18/18 06:30 06/17/18 06:29 05/27/18 20:42 Lisinopril (Prinivil) 20 mg BID ORAL 05/24/18 18:00 06/23/18 17:59 05/28/18 09:33 Magnesium Chloride (Slow-Mag) 1 tab DAILY ORAL 05/18/18 09:00 06/17/18 08:59 05/28/18 09:35 Ondansetron HCl (Zofran) 4 mg Q6H PRN IVP Nausea & Vomiting 05/17/18 23:00 06/16/18 22:59 Rivaroxaban (Xarelto) 15 mg BID ORAL 05/22/18 13:30 06/11/18 18:01 05/28/18 09:33 Rivaroxaban (Xarelto) 20 mg DAILY ORAL 06/12/18 09:00 07/12/18 08:59 Tamsulosin HCl (Flomax) 0.4 mg BID ORAL 05/19/18 18:00 06/18/18 17:59 05/28/18 09:34 Vitamin D (Vitamin D) 1,000 intlu DAILY ORAL 05/18/18 09:00 06/17/18 08:59 05/28/18 09:34 Alden Roberto MD May 28, 2018 12:24
[2018-05-28 16:00] VITALS: BP 143/73
--- NOTE | 2018-05-28 17:47 | Cardiology Progress Note ---
Assessment/Plan Assessment/Plan 1. Bilateral lower extremity edema, hypoalbuminemia or lymphedema, consider compression stockings, DVT is ruled out. No clinical or echo evidence for heart failure. 2. Pulmonary embolism, continue Xarelto. 3. History of hypertension, continue lisinopril, add chlorthalidone. 4. History of diabetes mellitus, continue atorvastatin. Subjective Subjective Sinus rhythm at rate of 66. Objective Last 24 Hour Vital Signs Date Time Temp Pulse Resp B/P (MAP) Pulse Ox O2 Delivery O2 Flow Rate FiO2 05/28/18 12:00 98.2 66 18 144/73 (96) 66 05/28/18 09:33 140/71 05/28/18 08:04 39 05/28/18 08:00 98.3 63 20 140/71 (94) 99 63 05/28/18 08:00 Room Air 05/28/18 04:00 97.7 60 20 143/76 (98) 98 60 05/28/18 04:00 55 05/28/18 00:00 98.0 75 20 133/58 (83) 98 05/27/18 23:57 63 05/27/18 21:00 Room Air 05/27/18 20:00 98.7 84 20 135/60 (85) 98 05/27/18 19:46 78 Intake and Output 05/27/18 05/28/18 18:59 06:59 Intake Total 480 ml 120 ml Output Total 325 ml 500 ml Balance 155 ml -380 ml Intake Oral 480 ml 120 ml Output Urine Total 325 ml 500 ml # Bowel Movements 2 2D Echo: LVEF 55%, Grade I LVDD, no e/o RV strain, poor quality images Microbiology Date/Time Source Procedure Growth Status 05/27/18 16:45 Urine,Clean Catch Urine Culture - Preliminary NO GROWTH Resulted Objective HEENT: Atraumatic and normocephalic. Anicteric. Pupils are equal, round, and reactive to light and accommodation. Extraocular muscles intact. NECK: JVP is flat close to 0 mmHg. No carotid bruit. Carotid upstroke is 2+ bilaterally. CARDIOVASCULAR: Normal S1, S2. Regular rate and rhythm. No murmurs, gallops, or rubs. PMI is at fourth intercostal space in the midclavicular line. LUNGS: Clear to auscultation bilaterally. ABDOMEN: Soft, nontender, and nondistended. No hepatosplenomegaly. Positive bowel sounds. EXTREMITIES: There is 3 to 4+ edema, squaring of the toes, and excoriations throughout both legs. Anthony Vazquez MD May 28, 2018 17:47
[2018-05-28 18:54] VITALS: BP 143/73
--- NOTE | 2018-05-28 19:11 | Nephrology Progress Note ---
Assessment/Plan Assessment 1) S/p obstructive uropathy 2) Edema 3) Hypoalbuminemia 4) CKD III 5) Non nephrotic range proteinuria Plan: Continue current measures Objective Objective Last 24 Hour Vital Signs Date Time Temp Pulse Resp B/P (MAP) Pulse Ox O2 Delivery O2 Flow Rate FiO2 05/28/18 18:54 143/73 05/28/18 16:00 98.0 78 20 143/73 (96) 05/28/18 15:10 69 05/28/18 12:00 98.2 66 18 144/73 (96) 66 05/28/18 11:31 64 05/28/18 09:33 140/71 05/28/18 08:04 39 05/28/18 08:00 98.3 63 20 140/71 (94) 99 63 05/28/18 08:00 Room Air 05/28/18 04:00 97.7 60 20 143/76 (98) 98 60 05/28/18 04:00 55 05/28/18 00:00 98.0 75 20 133/58 (83) 98 05/27/18 23:57 63 05/27/18 21:00 Room Air 05/27/18 20:00 98.7 84 20 135/60 (85) 98 05/27/18 19:46 78 Intake and Output 05/27/18 05/28/18 19:00 07:00 Intake Total 480 ml 120 ml Output Total 325 ml 500 ml Balance 155 ml -380 ml Intake Oral 480 ml 120 ml Output Urine Total 325 ml 500 ml # Bowel Movements 2 Height (Feet): 5 Height (Inches): 10.00 Weight (Pounds): 237 General Appearance: WD/WN, no apparent distress EENT: PERRL/EOMI, normal ENT inspection, TMs normal Cardiovascular: normal rate, regular rhythm Respiratory/Chest: lungs clear, normal breath sounds Abdomen: non tender, soft Extremities: moderate edema, severe edema 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
--- NOTE | 2018-05-29 14:08 | Discharge Summary ---
Discharge Summary Discharge Summary _ DATE OF ADMISSION: 05/17/2018 DATE OF DISCHARGE: 05/28/2018 DISCHARGED BY: Dr. Roberto REASON FOR ADMISSION: 88 years old male with history of MGUS, inclusion body myositis, diabetes mellitus, brought in by paramedics with complaint of bilateral lower extremity edema for several days along with generalized malaise. Patient denied cough ,shortness of breath, wheezing. Patient denied fever and chills. Upon evaluation vital signs reveal low-grade fever 100.9, tachycardia. Pulse oximetry was stable on room air. Laboratory workup revealed no leukocytosis ,hemoglobin 12.7, hematocrit 28.2 . Stable electrolytes. BUN 23 ,creatinine 0.8. AST 79, ALT 109 Troponin - 0.007. EKG revealed sinus rhythm, no acute ischemic changes . Pro BNP 37 Albumin 2.6 Urinalysis revealed evidence of +2 protein , + 5 blood, +3 leukocytes esterase, pyuria and many bacteria. D-dimer elevated - 22.76. CK 803. Chest x-ray revealed bilateral basilar atelectasis. CT of the abdomen and pelvis revealed distended bladder with bladder wall thickening and trabeculation, suggesting chronic bladder outlet obstruction , bilateral mild hydronephrosis and hydroureter without definite downstream obstructive lesion, likely related to chronic bladder outlet obstruction. Bilateral lower lobe bronchiectasis with evidence of old granulomatous disease in the left lower lobe. 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 No evidence of leakage or rupture. Possible gallbladder sludge. Venous duplex bilateral lower extremity revealed no evidence of acute DVT. CTA of the chest with contrast revealed right upper lobe segmental pulmonary emboli. No evidence of right heart strain. Bilateral basilar atelectasis and/ or consolidation with chronic component also a possibility. Evidence of old granulomatous disease in the left lung. Patient was admitted for further management. CONSULTANTS: clinical operations leader Dr. Fowler GI specialist Dr. Jessica rock room worker Dr. Guillaume HOSPITAL COURSE: Patient was admitted to telemetry floor and started on heparin drip. Patient will need at least 3-6 months of anticoagulation. Patient will require along the line transthoracic echocardiogram. Cardiology evaluation was requested. Volumes and cardiorenal parameters were closely monitored. Stand Up Forklift Operator followed. Echocardiogram revealed normal left ventricular chamber size, systolic function and wall motion to the extent visualized. No mitral regurgitation, no aortic insufficiency. Blood pressure was managed with LEMUEL inhibitor and chlorthalidone. Blood pressure stabilized. Lipid panel was stable. Statin was continued for history of diabetes mellitus. Compression stockings were provided as per clinical operations leader recommendations , given lower extremity edema , hypoalbuminemia, and possible lymphedema. Acute DVT was ruled out by Venous duplex scan. No clinical or echocardiographic evidence for congestive heart failure. Repeated troponin was negative as well. Patient was hydrated. Renal parameters and electrolytes were closely monitored. Electrolytes corrected as needed. Nephrotoxins were avoided. Urine studies were done. Patient started on medication for BPH. Patient started on empiric antibiotic for UTI. Filter Helper closely followed. Urine culture revealed Citrobacter. Blood cultures were negative. Repeated urine cultures were negative. Patient completed antibiotic course for UTI . Patient initially had microscopic hematuria on urinalysis, which cleared. Per rock room worker, proteinuria could be either from urinary tract infection or diabetic nephropathy, but did not explain the edema, which was likely nutritional. Filter Helper recommended to keep [place] for urinary retention and proceed with voiding trial later as outpatient in the facility. Patient was kept n.p.o. Bedside swallow evaluation revealed high aspiration risk. Diet downgraded as per speech therapist recommendations with strict aspiration/ reflux precaution and one-to-one supervision. Video swallow evaluation subsequently was recommended. Patient failed video swallow expiration. Oropharyngeal suction was completed after video swallow study. Speech therapist recommended to keep patient n.p.o. and consider tube feeding. Heparin drip was on hold after midnight. Patient subsequently undergone upper endoscopy for dysphagia. No evidence of esophageal stricture or narrowing noted. 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 Gastritis noted, but given that patient was on heparin , no biopsy was done. Unable to advance the scope to the duodenum. Per GI specialist , patient most likely will need a G-tube , given failed swallow evaluation and no evidence of obvious esophageal stricture to explain the inability to eat. Patient at high risk for aspiration given results of video swallow evaluation. However patient and family refused PEG placement. Diet was advanced to cardiac pured diet with texture as recommended by speech therapist with strict aspiration /reflux precautions and one-to-one feeding. Calorie count was initiated and to be maintained for 48 hours at the facility. Patient was on GI prophylaxis with PPI. Hemoglobin and hematocrit were closely monitored with goal to keep hemoglobin above 7 Anemia workup revealed sufficient iron stores. Stool for occult blood was negative. CEA was within normal limits. Prior to discharge hemoglobin 11.5 . Abdominal ultrasound was negative for gallstones and showed ectopy vocal gallbladder sludge. Apparent mild gallbladder wall thickening probably an artifact or under distention. Noted 3.1 x 3.7 cm diameter infrarenal abdominal aortic aneurysm described on CT scan. CK trended down from initial 803 down to 422. LFT trended down, ALT down to normal ; AST still with some mild elevation. Patient was transitioned from heparin to Xarelto . BS was managed with sliding scale of insulin and remained stable, [id number]-0.6, at goal. Supportive care provided. Bowel regimen instituted. Patient was stabilized and ready for transfer to alf facility for continuation of care. FINAL DIAGNOSES: Pulmonary embolism Obstructive uropathy Hydronephrosis Urinary tract infection with Citrobacter Chronic kidney disease stage III Elevated CK Dysphagia status post upper endoscopy 05/21 Possible paraesophageal hernia Gastritis Severe protein calorie malnutrition Esophageal dysmotility Diabetes mellitus CHF, chronic Hypertension Anemia Hypoalbuminemia. Bilateral lower extremity edema Inclusion body myositis MGUS ( monoclonal gammopathy of unknown significance) DISCHARGE MEDICATIONS: See Medication Reconciliation list. DISCHARGE INSTRUCTIONS: Patient was discharged to the alf facility. Follow up with medical doctor at the facility. I have been assigned to dictate discharge summary for this account. I was not involved in the patient's management. Rebecca Troncoso NP May 29, 2018 14:07
[2018-06-12] MEDS ORDERED: Xarelto 10mg tab ORAL SCH (09:00)
== END 2018-05-28 20:05 | DRG 606 ==
LOC: EDBD 17:11 → EDBEDREQ 17:39 → EMR 17:59 → 2E 18:10 → EDBEDREQ 20:44 → 2E 05-18 08:57
PROC: 0DJ08ZZ Inspection of Upper Intestinal Tract, Via Natural or Artificial Opening Endoscopic (ICD-10-PCS; principal; 2018-05-21 13:20)
DX: I89.0 Lymphedema, not elsewhere classified (principal); I26.99 Other pulmonary embolism without acute cor pulmonale; E43 Unspecified severe protein-calorie malnutrition; N39.0 Urinary tract infection, site not specified; I13.0 Hypertensive heart and chronic kidney disease with heart failure and stage 1 through stage 4 chronic kidney disease, or unspecified chronic kidney disease; M62.82 Rhabdomyolysis; N13.30 Unspecified hydronephrosis; D47.2 Monoclonal gammopathy; R74.8 Abnormal levels of other serum enzymes; G72.41 Inclusion body myositis [IBM]; K22.4 Dyskinesia of esophagus; I25.10 Atherosclerotic heart disease of native coronary artery without angina pectoris; E11.22 Type 2 diabetes mellitus with diabetic chronic kidney disease; N18.3 Chronic kidney disease, stage 3 (moderate); I50.9 Heart failure, unspecified; R33.9 Retention of urine, unspecified; R13.10 Dysphagia, unspecified; K44.9 Diaphragmatic hernia without obstruction or gangrene; K29.70 Gastritis, unspecified, without bleeding; Z68.34 Body mass index [BMI] 34.0-34.9, adult; D64.9 Anemia, unspecified
CPT/HCPCS: 36415; 71045; 71275; 74176; 74230; 76700; 80048; 80053; 80061; 81001; 81050; 82043; 82270; 82378; 82550; 82565; 82575; 82962; 83036; 83540; 83550; 83880; 84156; 84443; 84484; 85025; 85379; 85610; 85730; 87040; 87086; 87181; 93005; 93306; 93970; 96365; 96375; 99285; J1815